=== PATIENT | female | born 1970 | race Caucasian/White ===

== ENCOUNTER 2017-01-08 12:08 | Inpatient (IN) | payer BC ==
[~2017-01-08] VITALS: Ht 162.6 cm; Wt 129.5 kg
[~2017-01-08 12:08] MED LIST: ASPI-664 PO; ATEN50TA PO; CARI350T29 PO; DOCU-144 PO; FER325 PO; GEMF600T PO; LORA-444 PO; OMEP20CA16 PO; SPIR25TA PO
[2017-01-08 14:23] VITALS: BP 102/55; PULSE 72; RESP 18
[2017-01-08 14:49] VITALS: Ht 162.6 cm; Wt 129.5 kg
[2017-01-08] MEDS ORDERED: ONDANSETRON 4 MG INJ IV STA (15:51)
[2017-01-08] MEDS: SOD CHLORIDE 0.9% 1,000 ML IV SCH ×3 (16:36→23:04)
[2017-01-08 18:03] VITALS: BP 111/45; PULSE 81
[2017-01-08] MEDS: morphine 2 MG INJ IV PRN ×2 (18:07→20:32)
--- NOTE | 2017-01-08 19:27 | HP ---
Date/Time of Note Date/Time of Note DATE: 01/08/17 TIME: 19:21 Assessment/Plan VTE Prophylaxis VTE Prophylaxis Intervention: SCD's Lines/Catheters IV Catheter Type (from [facility]): Saline Lock Assessment/Plan Chief Complaint/Hosp Course 46-year-old female presenting with abdominal pain for 3 days with prior history of fibroids and ovarian cyst 1. Abdominal pain: Likely secondary to patient's fibroids, possibly secondary to ovarian cyst -[facility], pain control medications, IV fluids, check TSH A1c lipid panel. Get OPTICS ENGINEER consult -We will also obtain new pelvic ultrasound to further determine source of patient's abdominal pain. 2. GI prophylaxis: PPI 3. DVT prophylaxis: SCDs Problems: HPI/ROS Admit Date/Time Admit Date/Time Jan 08, 2017 at 14:04 Hx of Present Illness 46 year female past medical history of fibroids and ovarian cyst who was transferred over from [facility] due to insurance purposes because of abdominal pain. She has been having this for the last 3 days. Patient denies any diarrhea or constipation, no fevers, no upper or lower GI bleeding, no headaches or dizziness loss of consciousness, no chest pain or shortness of breath. She is also been complaining of irregular periods over the last 5 months as well. She was last seen here in our hospital April 2016. At that time she had D and C procedure performed secondary to dysfunctional uterine bleeding and severe anemia at that time. PMH/Family/Social Past Surgical History Past Surgical Hx: other ( 4, gallbladder removal) Family History Significant Family History: other (Father: CHF) Social History Alcohol Use: none Smoking Status: Never smoker Drug Use: none Exam/Review of Systems Vital Signs Vitals Vital Signs Date Time Temp Pulse Resp B/P Pulse Ox O2 Delivery O2 Flow Rate FiO2 01/08/17 18:03 81 111/45 01/08/17 14:23 98.6 18 95 Room Air Exam Exam General: Lying in bed in mild distress complaining of abdominal pain Neck: Supple HEENT: Pupils equal round reactive to light extraocular muscles are intact Respiratory: Clear to auscultation bilaterally Cardiovascular: S1-S2 heard no rubs or gallops GI: Tenderness to palpation, otherwise soft, no rebound or guarding Muscular skeletal: No lower extremity edema bilaterally Neurologic: No focal deficits Medications Medications Current Medications Miscellaneous Information Patients own medicat... BID@,16 XX ; Start 01/08/17 at 16:00 Morphine Sulfate 1 mg 1 mg Q3H PRN IV pain Last administered on 01/08/17t 18:07 ; Admin Dose 1 MG; Start 01/08/17 at 16:00 Sodium Chloride (NS) 1,000 ml @ 125 mls/hr Q8H IV Last administered on 16:36; Admin Dose 125 MLS/HR; Start 01/08/17 at 16:00 Ondansetron HCl (Zofran Inj) 4 mg Q6H PRN IV NAUSEA AND/OR VOMITING; Start at 16:30 Ondansetron HCl (Zofran Inj) 4 mg Q6H PRN IV NAUSEA AND/OR VOMITING; Start at 19:30 Acetaminophen (Tylenol Tab) 650 mg Q6H PRN PO PAIN LEVEL 1-3 OR FEVER; Start at 19:30 Acetaminophen/ Hydrocodone Bitart ([place] (5/325)) 1 tab Q6H PRN PO MODERATE PAIN LEVEL 4-6; Start 01/08/17 at 19:30 Morphine Sulfate (morphine) 2 mg Q4H PRN IV SEVERE PAIN LEVEL 7-10; Start 01/08 at 19:30 Docusate Sodium (Colace) 100 mg Q12H PRN PO CONSTIPATION; Start 01/08/17 at 19: 30 Magnesium Hydroxide (Milk Of Mag) 30 ml DAILY PRN PO CONSTIPATION; Start at 19:30 Sodium Biphosphate/ Sodium Phosphate (Fleet Enema) 133 ml DAILY PRN [place] CONSTIPATION; Start 01/08/17 at 19:30 Pantoprazole 40 mg 40 mg DAILY@06 IV ; Start 01/09/17 at 06:00 Sodium Chloride (1/2 NS) 1,000 ml @ 75 mls/hr [id number] IV ; Start 01/08/17 at 19 :02 Lorazepam (Ativan) 0.5 mg Q6H PRN IV ANXIETY; Start 01/08/17 at 19:30 Hydralazine HCl (Apresoline) 10 mg Q6H PRN IV ELEVATED BLOOD PRESSURE; Start at 19:30 Nitroglycerin (Nitroglycerin (Sl Tab) 0.4 Mg) 1 tab Q5M PRN SL ANGINA; Start at 19:30 SARAH HAYNES Jan 08, 2017 19:26
[2017-01-08] MEDS ORDERED: DOCUSATE SODIUM 100 MG CAP PO PRN (19:30)
[2017-01-08] MEDS ORDERED: NA PHOSPHATE/BIPHOS 133 ML ENEMA PR PRN (19:30)
[2017-01-08] MEDS ORDERED: ALBUTEROL/IPRATROPIUM (NEB) 3 ML AMP HHN PRN (19:30)
[2017-01-08] MEDS ORDERED: hydrALAzine 20 MG INJ IV PRN (19:30)
[2017-01-08] MEDS ORDERED: MAGNESIUM HYDROXIDE 30ML CUP PO PRN (19:30)
[2017-01-08] MEDS ORDERED: ONDANSETRON 4 MG INJ IV PRN (19:30)
[2017-01-08] MEDS ORDERED: ACETAMINOPHEN 325 MG TAB PO PRN (19:30)
[2017-01-08] MEDS ORDERED: NITROGLYCERIN (SL) 0.4 MG TAB SL PRN (19:30)
[2017-01-08] MEDS ORDERED: NACL 0.9% 3 ML SYG IV SCH (19:30)
[2017-01-08 20:00] VITALS: BP 114/52; RESP 18
[2017-01-08] MEDS: SOD CHLORIDE 0.45% 1,000 ML IV SCH (20:26)
[2017-01-08] MEDS: ONDANSETRON 4 MG INJ IV PRN (20:33)
[2017-01-08 20:52] LABS: INR 1.06; PROTIME 13.8 Sec (12.2-14.2); PT RATIO 1.1
[2017-01-08 20:53] LABS: PARTIAL THROMBOPLASTIN TIME 28.6 Sec (25.0-35.0)
[2017-01-09] MEDS: morphine 2 MG INJ IV PRN ×6 (02:18→20:34)
[2017-01-09 02:54] VITALS: BP 100/55; RESP 18
[2017-01-09] MEDS: PANTOPRAZOLE 40 MG INJ IV SCH (04:49)
[2017-01-09 04:53] LABS: ADD SCAN DIFF NO
[2017-01-09 04:54] LABS: ABNORMAL IP MESSAGE 1; BASOPHILS % 0.3 % (0.0-2.0); EOSINOPHILS # 0.2 10^3/ul (0.0-0.5); EOSINOPHILS % 2.2 % (0.0-7.0); HEMATOCRIT 29.7 % (37.0-47.0); HEMOGLOBIN 8.4 g/dl (12.0-16.0); LYMPHOCYTES # 2.2 10^3/ul (0.8-2.9); LYMPHOCYTES % 24.6 % (15.0-51.0); MEAN CORPUSCULAR HEMOGLOBIN 20.2 pg (29.0-33.0); MEAN CORPUSCULAR HGB CONC 28.3 g/dl (32.0-37.0); MEAN CORPUSCULAR VOLUME 71.4 fl (82.0-101.0); MEAN PLATELET VOLUME 10.5 fl (7.4-10.4); MONOCYTE # 0.4 10^3/ul (0.3-0.9); MONOCYTES % 4.9 % (0.0-11.0); NEUTROPHIL # 6.1 10^3/ul (1.6-7.5); NEUTROPHILS % 67.3 % (39.0-77.0); PLATELET COUNT 290 10^3/UL (140-415); RED BLOOD COUNT 4.16 10^6/ul (4.20-5.40); RED CELL DISTRIBUTION WIDTH 18.4 % (11.5-14.5)
[2017-01-09 05:15] LABS: CALCIUM 8.6 mg/dl (8.4-10.2); CHOL/HDL RATIO 4.3 RATIO; CREATININE 0.79 mg/dl (0.44-1.00); MAGNESIUM 1.7 mg/dl (1.7-2.5); PHOSPHORUS 3.9 mg/dl (2.5-4.9); POTASSIUM 4.4 mmol/L (3.5-5.1)
[2017-01-09 05:45] LABS: THYROID STIMULATING HORMONE 1.38 MIU/L (0.465-4.680)
--- NOTE | 2017-01-09 07:11 | RADRPT ---
PROCEDURE: US Pelvis CLINICAL INDICATION: Pelvic pain. TECHNIQUE: Transabdominal sonographic evaluation of the pelvis was performed. COMPARISON: None. FINDINGS: Myometrium is homogeneous in echotexture without fibroids. Endometrium is normal in thickness without a focal abnormality. Normal flow to both ovaries. No adnexal mass. There is a dominant follicle within left ovary measu ring up to 1.4 cm. No free pelvic fluid. MEASUREMENTS: Uterus: 10.0 x 5.4 x 6.4 cm, anteverted. Endometrium: 0.7 cm. Right ovary size: 2.9 x 1.9 x 2.3 cm Left ovary size: 3.1 x 2.1 x 2.4 cm IMPRESSION: 1. Transabdominal views of the pelvis demonstrate no significant abnormality. RPTAT: EE .Davy Hsu MD, Date Time Electronically viewed and signed by .Davy Hsu MD, on 01/09/2017 07:15 .C/
[2017-01-09] MEDS: SOD CHLORIDE 0.45% 1,000 ML IV SCH ×3 (08:22→20:33)
[2017-01-09 08:39] VITALS: BP 114/56; RESP 18
[2017-01-09] MEDS: HYDROCODONE/APAP (5/325) TAB PO PRN ×3 (10:21→23:32)
--- NOTE | 2017-01-09 13:29 | PN ---
Date/Time of Note Date/Time of Note DATE: 01/09/17 TIME: 13:27 Assessment/Plan VTE Prophylaxis VTE Prophylaxis Intervention: SCD's Lines/Catheters IV C[facility]ter Type (from [facility]): Saline Lock Assessment/Plan Chief Complaint/Hosp Course 46-year-old female presenting with abdominal pain for 3 days with prior history of fibroids and ovarian cyst. 1. Abdominal pain: Likely secondary to patient's fibroids, possibly secondary to ovarian cyst. Interestingly, pelvic ultrasound performed last night does not demonstrate any fibroids. -Continue pain control medications, IV fluids. Follow-up [facility] [employer] consult recommendations. 2. GI prophylaxis: PPI 3. DVT prophylaxis: SCDs Problems: Subjective 24 Hr Interval Summary Free Text/Dictation Patient still complaining of pain symptoms in the abdomen. Awaiting to be seen by [facility] team. No acute events overnight otherwise. Exam/Review of Systems Vital Signs Vitals Vital Signs Date Time Temp Pulse Resp B/P Pulse Ox O2 Delivery O2 Flow Rate FiO2 01/09/17 08:39 98.2 76 18 114/56 96 01/08/17 14:23 Room Air Intake and Output 01/08/17 01/08/17 01/09/17 15:00 23:00 07:00 Intake Total 375 ml 750 ml Output Total 900 ml Balance 375 ml -150 ml Exam General: Lying in bed in mild distress complaining of abdominal pain Neck: Supple HEENT: Pupils equal round reactive to light extraocular muscles are intact Respiratory: Clear to auscultation bilaterally Cardiovascular: S1-S2 heard no rubs or gallops GI: Tenderness to palpation, otherwise soft, no rebound or guarding Muscular skeletal: No lower extremity edema bilaterally Neurologic: No focal deficits Results Result Diagram: 01/09/17 0430 01/09/17 0430 Results 24 hrs Laboratory Tests Test 01/08/17 19:15 01/08/17 20:15 01/09/17 04:30 Free Thyroxine 0.85 Prothrombin Time 13.8 Prothrombin Time Ratio 1.1 INR International Normalized Ratio 1.06 Activated Partial Thromboplast Time 28.6 White Blood Count 9.0 # Red Blood Count 4.16 L Hemoglobin 8.4 L Hematocrit 29.7 L Mean Corpuscular Volume 71.4 L Mean Corpuscular Hemoglobin 20.2 L Mean Corpuscular Hemoglobin Concent 28.3 L Red Cell Distribution Width 18.4 H Platelet Count 290 Mean Platelet Volume 10.5 #H Neutrophils % 67.3 Lymphocytes % 24.6 Monocytes % 4.9 Eosinophils % 2.2 Basophils % 0.3 Nucleated Red Blood Cells % 0.0 Neutrophils # 6.1 Lymphocytes # 2.2 Monocytes # 0.4 Eosinophils # 0.2 Basophils # 0.0 Nucleated Red Blood Cells # 0.0 Sodium Level 143 Potassium Level 4.4 Chloride Level 104 Carbon Dioxide Level 29 Anion Gap 14 Blood Urea Nitrogen 10 Creatinine 0.79 Glucose Level 99 Hemoglobin A1c 5.7 Calcium Level 8.6 Phosphorus Level 3.9 Magnesium Level 1.7 Triglycerides Level 186 H Cholesterol Level 166 LDL Cholesterol, Calculated 91 HDL Cholesterol 38 Cholesterol/HDL Ratio 4.3 Thyroid Stimulating Hormone (TSH) 1.380 Medications Medications Current Medications Miscellaneous Information Patients own medicat... BID@ XX ; Start 01/08/17 at 16:00 Morphine Sulfate 1 mg 1 mg Q3H PRN IV pain Last administered on 01/09/17 04:49 ; Admin Dose 1 MG; Start 01/08/17 at 16:00 Sodium Chloride (NS) 1,000 ml @ 125 mls/hr Q8H IV Last administered on 16:36; Admin Dose 125 MLS/HR; Start 01/08/17 at 16:00 Ondansetron HCl (Zofran Inj) 4 mg Q6H PRN IV NAUSEA AND/OR VOMITING Last administered on 01/08/17 20:33; Admin Dose 4 MG; Start 01/08/17 at 16:30 Ondansetron HCl (Zofran Inj) 4 mg Q6H PRN IV NAUSEA AND/OR VOMITING; Start at 19:30 Acetaminophen (Tylenol Tab) 650 mg Q6H PRN PO PAIN LEVEL 1-3 OR FEVER; Start at 19:30 Acetaminophen/ Hydrocodone Bitart ([place] (5/325)) 1 tab Q6H PRN PO MODERATE PAIN LEVEL 4-6 Last administered on 01/09/17 10:21; Admin Dose 1 TAB; Start at 19:30 Docusate Sodium (Colace) 100 mg Q12H PRN PO CONSTIPATION; Start 01/08/17 at 19: 30 Magnesium Hydroxide (Milk Of Mag) 30 ml DAILY PRN PO CONSTIPATION; Start at 19:30 Sodium Biphosphate/ Sodium Phosphate (Fleet Enema) 133 ml DAILY PRN [place] CONSTIPATION; Start 01/08/17 at 19:30 Pantoprazole 40 mg 40 mg DAILY@06 IV Last administered on 01/09/17 04:49; Admin Dose 40 MG; Start 01/09/17 at 06:00 Sodium Chloride (1/2 NS) 1,000 ml @ 75 mls/hr [id number] IV Last administered on 01/08/17 20:26; Admin Dose 75 MLS/HR; Start 01/08/17 at 19:02 Lorazepam (Ativan) 0.5 mg Q6H PRN IV ANXIETY; Start 01/08/17 at 19:30 Hydralazine HCl (Apresoline) 10 mg Q6H PRN IV ELEVATED BLOOD PRESSURE; Start at 19:30 Nitroglycerin (Nitroglycerin (Sl Tab) 0.4 Mg) 1 tab Q5M PRN SL ANGINA; Start at 19:30 Morphine Sulfate (morphine) 3 mg Q4H PRN IV SEVERE PAIN LEVEL 7-10; Start 01/09 at 15:30 SARAH HAYNES Jan 09, 2017 13:29
[2017-01-09 14:13] VITALS: BP 96/46; RESP 18
[2017-01-09] MEDS: SOD CHLORIDE 0.9% 1,000 ML IV SCH (16:06)
[2017-01-09 20:04] VITALS: BP 116/71; RESP 18
--- NOTE | 2017-01-09 22:41 | CONS ---
Date/Time of Note Date/Time of Note DATE: 01/09/17 TIME: 22:29 Assessment/Plan Assessment/Plan Chief Complaint/Hosp Course Chronic pelvic pain, unclear etiology. Cannot rule out other non-MANAGER CENTER causes for pelvic pain including GI , versus scars related to prior multiple C- sections. No clear evidence of fibroid in exam or ultrasound or CT scan Chronic menometrorrhagia Chronic iron deficiency anemia secondary to menometrorrhagia, with multiple blood transfusion as well as iron infusion She is a status post endometrial biopsy 7 months ago that was benign Patient currently is asymptomatic Has no vaginal bleeding at present time Recommended evaluation for non-MANAGER CENTER causes of pelvic pain. Including GI Management of menometrorrhagia including nonhormonal vs progesterone only medications ( due to obesity, not a good candidate for E+ P ). including Depo provera, Aygestin, POP discussed as well as surgical options including Hysteroscopy and Ablation vs Hysterectomy with pros and cons of each method in detail. Patient desires and requests to proceed with definitive surgical management with hysterectomy. Had in the past tried to be referred to Dr. Camilo cobian by Dr. Devon dennis for hysterectomy but could not get to see him She is hoping to see him during this admission for surgical management plan. Recommended to contact Dr. Sanchez for a consult Mean time, Patient can take Aygestio for menometrorrhagia vs Depo provera . May be able to prescribe this if available in the pharmacy. Pain management by primary team and recommended to continue explore and r/o other factors for chronic plevic pain. will continue to follow up Problems: Consultation Date/Type/Reason Admit Date/Time Jan 08, 2017 at 14:04 Date of Consultation: Jan 09, 2017 Type of Consultation: [facility] Reason for Consultation Gynecology evaluation for chronic menometrorrhagia and anemia as well as chronic pelvic pain Hx of Present Illness 46-year-old with history of chronic iron deficiency severe anemia, status post multiple episodes of blood transfusion as well as IV iron infusion. She had never been treated for menorrhagia. She also had a history of chronic pelvic pain and severe dysmenorrhea. Patient reports that her pelvic pain usually occurs 1 week prior to menstruation as well as at the time of menstruation and continued until 1 week after menstruation. Per patient pain gradually increased. Reports normally she had pain 4 out of 10 at the time of menstruation however 2 days ago started having increased abdominal pain. She rates her pain 7 out of 10. Pain is in the lower abdomen and constant. Patient presented to [facility] where she had been evaluated and subsequently was transferred to [facility] due to insurance issue. Patient had a CT of abdomen and pelvis as well as pelvic ultrasound that showed heterogeneous uterus without evidence of fibroids or adnexal mass. Patient reports that only morphine helps with her pain. She was initially a patient of Dr. Baker. She underwent D&C in April 2016 for menometrorrhagia and severe anemia that showed proliferative endometrium with benign findings. She never received any treatment for chronic menometrorrhagia. Denies any history of bleeding problem. Denies any family history of bleeding problem. Reports her period since menarche had been heavy but significantly heavier since her first childbirth. Denies any known history of thyroid problem. Has been tested negative for thyroid dysfunction. Currently has bleeding every other week for the last 2 months. Strongly desires to proceed with definitive surgical management with hysterectomy and requests. Subjective hx not possible: other Constitutional: improved Eyes: no complaints ENT: no complaints Respiratory: no complaints Cardiovascular: no complaints Gastrointestinal: pain Genitourinary: bleeding, other (Pain, dysmenorrhea, menometrorrhagia, pelvic pain) Musculoskeletal: no complaints Skin: no complaints Neurologic: no complaints Endocrine: no complaints Lymphatic: no complaints Psychological: anxiety (History of bipolar disorder), depression, other Past Medical History Past medical history: Anxiety and depression History of bipolar disorder History of hypertension Morbid obesity High cholesterol Anemia Past Surgical History Laparoscopic cholecystectomy D&C, April 2016 for menometrorrhagia 4 Past Surgical Hx: other ( 4, gallbladder removal) Family History Significant Family History: other (Father with congestive heart failure and COPD) Social History Alcohol Use: none Smoking Status: Never smoker Drug Use: none Exam/Review of Systems Vital Signs Vitals Vital Signs Date Time Temp Pulse Resp B/P Pulse Ox O2 Delivery O2 Flow Rate FiO2 01/09/17 20:04 98.5 84 18 116/71 95 01/08/17 14:23 Room Air Intake and Output 01/08/17 01/08/17 01/09/17 15:00 23:00 07:00 Intake Total 375 ml 750 ml Output Total 900 ml Balance 375 ml -150 ml Exam Constitutional: alert, distress, obese, oriented, other (Patient appears to be in moderate distress due to pain), well developed Psych: anxiety, nl mood/affect Head: atraumatic, normocephalic Eyes: EOMI, nl conjunctiva, nl lids Neck: supple Respiratory: clear to auscultation, normal air movement Cardiovascular: nl pulses, regular rate and rhythm Gastrointestinal: soft, tender (Moderate tenderness in both lower abdomen. Abdomen soft generally. No rebound tenderness, no guarding, no rigidity no evidence of acute abdomen) Genitourinary - Female: other (Sterile speculum examination: Vagina normal. No blood in the vault. Cervix high in the vagina. Difficult to visualize due to patient's body habitus and high position of the cervix. No abnormal vaginal discharge noted. Bimanual examination. Cervix smooth without any lesion. No cervical motion tenderness. Uterus normal size. There is moderate tenderness in both lower abdomen noted. Exam is very limited due to patient's large body habitus and difficult examination due to patient's tenderness and difficult to tolerate the exam.) Extremities: normal pulses Neurological: SUPPLY ANALYST II-XII intact, nl mental status, nl speech Skin: nl turgor Results Result Diagram: 01/09/1742901/09/17 0430 Results 24 hrs Laboratory Tests Test 01/09/17 04:30 White Blood Count 9.0 # Red Blood Count 4.16 L Hemoglobin 8.4 L Hematocrit 29.7 L Mean Corpuscular Volume 71.4 L Mean Corpuscular Hemoglobin 20.2 L Mean Corpuscular Hemoglobin Concent 28.3 L Red Cell Distribution Width 18.4 H Platelet Count 290 Mean Platelet Volume 10.5 #H Neutrophils % 67.3 Lymphocytes % 24.6 Monocytes % 4.9 Eosinophils % 2.2 Basophils % 0.3 Nucleated Red Blood Cells % 0.0 Neutrophils # 6.1 Lymphocytes # 2.2 Monocytes # 0.4 Eosinophils # 0.2 Basophils # 0.0 Nucleated Red Blood Cells # 0.0 Sodium Level 143 Potassium Level 4.4 Chloride Level 104 Carbon Dioxide Level 29 Anion Gap 14 Blood Urea Nitrogen 10 Creatinine 0.79 Glucose Level 99 Hemoglobin A1c 5.7 Calcium Level 8.6 Phosphorus Level 3.9 Magnesium Level 1.7 Triglycerides Level 186 H Cholesterol Level 166 LDL Cholesterol, Calculated 91 HDL Cholesterol 38 Cholesterol/HDL Ratio 4.3 Thyroid Stimulating Hormone (TSH) 1.380 Medications Medications Current Medications Miscellaneous Information Patients own medicat... BID@ XX ; Start 01/08/17 at 16:00 Morphine Sulfate (morphine) 1 mg Q3H PRN IV pain Last administered on 04:49; Admin Dose 1 MG; Start 01/08/17 at 16:00 Ondansetron HCl (Zofran Inj) 4 mg Q6H PRN IV NAUSEA AND/OR VOMITING Last administered on 01/08/17 20:33; Admin Dose 4 MG; Start 01/08/17 at 16:30 Ondansetron HCl (Zofran Inj) 4 mg Q6H PRN IV NAUSEA AND/OR VOMITING; Start at 19:30 Acetaminophen (Tylenol Tab) 650 mg Q6H PRN PO PAIN LEVEL 1-3 OR FEVER; Start at 19:30 Acetaminophen/ Hydrocodone Bitart ([place] (5/325)) 1 tab Q6H PRN PO MODERATE PAIN LEVEL 4-6 Last administered on 01/09/17 17:20; Admin Dose 1 TAB; Start at 19:30 Docusate Sodium (Colace) 100 mg Q12H PRN PO CONSTIPATION; Start 01/08/17 at 19: 30 Magnesium Hydroxide (Milk Of Mag) 30 ml DAILY PRN PO CONSTIPATION; Start at 19:30 Sodium Biphosphate/ Sodium Phosphate (Fleet Enema) 133 ml DAILY PRN [place] CONSTIPATION; Start 01/08/17 at 19:30 Pantoprazole 40 mg 40 mg DAILY@06 IV Last administered on 01/09/17 04:49; Admin Dose 40 MG; Start 01/09/17 at 06:00 Sodium Chloride (1/2 NS) 1,000 ml @ 75 mls/hr [id number] IV Last administered on 01/09/17 17:20; Admin Dose 75 MLS/HR; Start 01/08/17 at 19:02 Lorazepam (Ativan) 0.5 mg Q6H PRN IV ANXIETY; Start 01/08/17 at 19:30 Hydralazine HCl (Apresoline) 10 mg Q6H PRN IV ELEVATED BLOOD PRESSURE; Start at 19:30 Nitroglycerin (Nitroglycerin (Sl Tab) 0.4 Mg) 1 tab Q5M PRN SL ANGINA; Start at 19:30 Morphine Sulfate (morphine) 3 mg Q4H PRN IV SEVERE PAIN LEVEL 7-10 Last administered on 01/09/17t 20:34; Admin Dose 3 MG; Start 01/09/17 at 15:30 Procedures Procedures Hematology - 72 Hrs Test 01/09/17 04:30 White Blood Count 9.010^3/ul (4.8-10.8) # Red Blood Count 4.1610^6/ul (4.20-5.40) L Hemoglobin 8.4g/dl (12.0-16.0) L Hematocrit 29.7% (37.0-47.0) L Mean Corpuscular Volume 71.4fl (82.0-101.0) L Mean Corpuscular Hemoglobin 20.2pg (29.0-33.0) L Mean Corpuscular Hemoglobin Concent 28.3g/dl (32.0-37.0) L Red Cell Distribution Width 18.4% (11.5-14.5) H Platelet Count 90198^3/UL (140-415) Mean Platelet Volume 10.5fl (7.4-10.4) #H Neutrophils % 67.3% (39.0-77.0) Lymphocytes % 24.6% (15.0-51.0) Monocytes % 4.9% (0.0-11.0) Eosinophils % 2.2% (0.0-7.0) Basophils % 0.3% (0.0-2.0) Nucleated Red Blood Cells % 0.0/100WBC (0.0-0.0) Neutrophils # 6.110^3/ul (1.6-7.5) Lymphocytes # 2.210^3/ul (0.8-2.9) Monocytes # 0.410^3/ul (0.3-0.9) Eosinophils # 0.210^3/ul (0.0-0.5) Basophils # 0.010^3/ul (0.0-0.1) Nucleated Red Blood Cells # 0.010^3/ul (0.0-0.0) Chemistry Test 01/08/17 19:15 01/09/17 04:30 Free Thyroxine 0.85ng/dl (0.64-1.79) Sodium Level 143mmol/L (135-144) Potassium Level 4.4mmol/L (3.5-5.1) Chloride Level 104mmol/L (97-110) Carbon Dioxide Level 29mmol/L (21-31) Anion Gap 14 (8-16) Blood Urea Nitrogen 10mg/dl (7-20) Creatinine 0.79mg/dl (0.44-1.00) Glucose Level 99mg/dl (70-220) Hemoglobin A1c 5.7% (0-5.9) Calcium Level 8.6mg/dl (8.4-10.2) Phosphorus Level 3.9mg/dl (2.5-4.9) Magnesium Level 1.7mg/dl (1.7-2.5) Triglycerides Level 186mg/dl (0-149) H Cholesterol Level 166mg/dl (100-200) LDL Cholesterol, Calculated 91mg/dl HDL Cholesterol 38mg/dl (34-88) Cholesterol/HDL Ratio 4.3RATIO Thyroid Stimulating Hormone (TSH) 1.380MIU/L (0.465-4.680) PROCEDURE: US Pelvis CLINICAL INDICATION: Pelvic pain. TECHNIQUE: Transabdominal sonographic evaluation of the pelvis was performed. COMPARISON: None. FINDINGS: Myometrium is homogeneous in echotexture without fibroids. Endometrium is normal in thickness without a focal abnormality. Normal flow to both ovaries. No adnexal mass. There is a dominant follicle within left ovary measuring up to 1.4 cm. No free pelvic fluid. MEASUREMENTS: Uterus: 10.0 x 5.4 x 6.4 cm, anteverted. Endometrium: 0.7 cm. Right ovary size: 2.9 x 1.9 x 2.3 cm Left ovary size: 3.1 x 2.1 x 2.4 cm IMPRESSION: 1. Transabdominal views of the pelvis demonstrate no significant abnormality. SAMIRA CRAWFORD MD Jan 09, 2017 22:40
[2017-01-09] MEDS: LORAZEPAM 2 MG INJ IV PRN (22:48)
[2017-01-10 02:06] VITALS: BP 118/59; RESP 18
[2017-01-10] MEDS: morphine 2 MG INJ IV PRN ×5 (02:27→21:51)
[2017-01-10] MEDS: HYDROCODONE/APAP (5/325) TAB PO PRN ×2 (05:32→14:30)
[2017-01-10] MEDS: PANTOPRAZOLE 40 MG INJ IV SCH (05:32)
[2017-01-10] MEDS: SOD CHLORIDE 0.45% 1,000 ML IV SCH ×2 (05:34→18:55)
[2017-01-10 06:26] LABS: ADD SCAN DIFF NO
[2017-01-10 06:38] LABS: ABNORMAL IP MESSAGE 1; BASOPHILS % 0.3 % (0.0-2.0); EOSINOPHILS # 0.1 10^3/ul (0.0-0.5); EOSINOPHILS % 1.6 % (0.0-7.0); HEMATOCRIT 27.7 % (37.0-47.0); HEMOGLOBIN 7.8 g/dl (12.0-16.0); LYMPHOCYTES # 1.9 10^3/ul (0.8-2.9); LYMPHOCYTES % 24.1 % (15.0-51.0); MEAN CORPUSCULAR HEMOGLOBIN 19.9 pg (29.0-33.0); MEAN CORPUSCULAR HGB CONC 28.2 g/dl (32.0-37.0); MEAN CORPUSCULAR VOLUME 70.7 fl (82.0-101.0); MEAN PLATELET VOLUME 10.4 fl (7.4-10.4); MONOCYTE # 0.7 10^3/ul (0.3-0.9); NEUTROPHIL # 5.1 10^3/ul (1.6-7.5); NEUTROPHILS % 64.5 % (39.0-77.0); PLATELET COUNT 267 10^3/UL (140-415); RED BLOOD COUNT 3.92 10^6/ul (4.20-5.40); RED CELL DISTRIBUTION WIDTH 18.3 % (11.5-14.5); WHITE BLOOD COUNT 7.9 10^3/ul (4.8-10.8)
[2017-01-10 07:04] LABS: CALCIUM 8.8 mg/dl (8.4-10.2); CREATININE 0.81 mg/dl (0.44-1.00); POTASSIUM 4.2 mmol/L (3.5-5.1)
[2017-01-10 08:19] VITALS: BP 94/50; RESP 18
[2017-01-10 14:00] VITALS: BP 96/46; RESP 18
--- NOTE | 2017-01-10 14:48 | PN ---
Date/Time of Note Date/Time of Note DATE: 01/10/17 TIME: 14:43 Assessment/Plan VTE Prophylaxis VTE Prophylaxis Intervention: SCD's Lines/Catheters IV [facility] Type (from [facility] Peripheral IV Urinary Cath still in place: No Assessment/Plan Chief Complaint/Hosp Course 46-year-old female presenting with abdominal pain for 3 days with prior history of fibroids and ovarian cyst. 1. Abdominal pain: Likely secondary to patient's fibroids vs GI abnormality, also possibly secondary to ovarian cyst. Interestingly, pelvic ultrasound performed 2 days ago does not demonstrate any fibroids. Appreciate DEALER CARD ROOM consult. Patient has chronic menometrorrhagia, and chronic iron deficiency anemia secondary to menometrorrhagia, with multiple blood transfusion as well as iron infusion, and is status post endometrial biopsy 7 months ago that was benign. -Continue pain control medications, IV fluids. Follow-up DEALER [employer] ROOM consult recommendations. -per DEALER [facility]ARD ROOM, will also consult gynecological oncology team and GI team for further evaluation -Given low hemoglobin today, will transfuse 2 units PRBC as well, and check occult test 2. GI prophylaxis: PPI 3. DVT prophylaxis: SCDs Problems: Subjective 24 Hr Interval Summary Free Text/Dictation Patient still complaining of some pelvic pain and slight bleeding. Had pelvic ultrasound performed. Seen by DEALER CARD RO[facility] team. Exam/Review of Systems Vital Signs Vitals Vital Signs Date Time Temp Pulse Resp B/P Pulse Ox O2 Delivery O2 Flow Rate FiO2 01/10/17 08:19 98.3 80 18 94/50 93 01/08/17 14:23 Room Air Intake and Output 01/09/17 01/09/17 01/10/17 15:00 23:00 07:00 Intake Total 250 ml 1500 ml Output Total 550 ml Balance -300 ml 1500 ml Exam General: Lying in bed in mild distress, but alert Neck: Supple HEENT: Pupils equal round reactive to light extraocular muscles are intact Respiratory: Clear to auscultation bilaterally Cardiovascular: S1-S2 heard no rubs or gallops GI: Tenderness to palpation, otherwise soft, no rebound or guarding Muscular skeletal: No lower extremity edema bilaterally Neurologic: No focal deficits Results Result Diagram: 01/10/17 0552 01/10/17 0552 Results 24 hrs Laboratory Tests Test 01/10/17 05:52 White Blood Count 7.9 Red Blood Count 3.92 L Hemoglobin 7.8 L Hematocrit 27.7 L Mean Corpuscular Volume 70.7 L Mean Corpuscular Hemoglobin 19.9 L Mean Corpuscular Hemoglobin Concent 28.2 L Red Cell Distribution Width 18.3 H Platelet Count 267 Mean Platelet Volume 10.4 Neutrophils % 64.5 Lymphocytes % 24.1 Monocytes % 9.0 Eosinophils % 1.6 Basophils % 0.3 Nucleated Red Blood Cells % 0.0 Neutrophils # 5.1 Lymphocytes # 1.9 Monocytes # 0.7 Eosinophils # 0.1 Basophils # 0.0 Nucleated Red Blood Cells # 0.0 Sodium Level 144 Potassium Level 4.2 Chloride Level 101 Carbon Dioxide Level 31 Anion Gap 16 Blood Urea Nitrogen 9 Creatinine 0.81 Glucose Level 97 Calcium Level 8.8 Medications Medications Current Medications Miscellaneous Information Patients own medicat... BID@ XX ; Start 01/08/17 at 16:00 Morphine Sulfate (morphine) 1 mg Q3H PRN IV pain Last administered on 04:49; Admin Dose 1 MG; Start 01/08/17 at 16:00 Ondansetron HCl (Zofran Inj) 4 mg Q6H PRN IV NAUSEA AND/OR VOMITING Last administered on 01/08/17 20:33; Admin Dose 4 MG; Start 01/08/17 at 16:30 Ondansetron HCl (Zofran Inj) 4 mg Q6H PRN IV NAUSEA AND/OR VOMITING; Start at 19:30 Acetaminophen (Tylenol Tab) 650 mg Q6H PRN PO PAIN LEVEL 1-3 OR FEVER; Start at 19:30 Acetaminophen/ Hydrocodone Bitart ([place] (5/325)) 1 tab Q6H PRN PO MODERATE PAIN LEVEL 4-6 Last administered on 01/10/17 14:30; Admin Dose 1 TAB; Start at 19:30 Docusate Sodium (Colace) 100 mg Q12H PRN PO CONSTIPATION; Start 01/08/17 at 19: 30 Magnesium Hydroxide (Milk Of Mag) 30 ml DAILY PRN PO CONSTIPATION; Start at 19:30 Sodium Biphosphate/ Sodium Phosphate (Fleet Enema) 133 ml DAILY PRN [place] CONSTIPATION; Start 01/08/17 at 19:30 Pantoprazole 40 mg 40 mg DAILY@06 IV Last administered on 01/10/17 05:32; Admin Dose 40 MG; Start 01/09/17 at 06:00 Sodium Chloride (1/2 NS) 1,000 ml @ 75 mls/hr [id number] IV Last administered on 01/10/17 05:34; Admin Dose 75 MLS/HR; Start 01/08/17 at 19:02 Lorazepam (Ativan) 0.5 mg Q6H PRN IV ANXIETY Last administered on 01/09/17 22: 48; Admin Dose 0.5 MG; Start 01/08/17 at 19:30 Hydralazine HCl (Apresoline) 10 mg Q6H PRN IV ELEVATED BLOOD PRESSURE; Start at 19:30 Nitroglycerin (Nitroglycerin (Sl Tab) 0.4 Mg) 1 tab Q5M PRN SL ANGINA; Start at 19:30 Morphine Sulfate (morphine) 3 mg Q4H PRN IV SEVERE PAIN LEVEL 7-10 Last administered on 01/10/17 11:03; Admin Dose 3 MG; Start 01/09/17 at 15:30 SARAH HAYNES Jan 10, 2017 14:48
--- NOTE | 2017-01-10 15:22 | CONS ---
Date/Time of Note Date/Time of Note DATE: 01/10/17 TIME: 15:08 Assessment/Plan Assessment/Plan Additional Assessment/Plan Assessment * Abdominal pain T/C fibroids * Anemia R/O Bleeding peptic ulcer vs iron deficiency vs others Plan * EGD tomorrow risks and benefit explain to patient and agreed with the plan procedure * continue present management * pain control Consultation Date/Type/Reason Admit Date/Time Jan 08, 2017 at 14:04 Date of Consultation: Jan 10, 2017 Type of Consultation: GAstroenterology Reason for Consultation Abdominal pain/anemia Referring Provider: SARAH HAYNES Hx of Present Illness 46 year old female with past medical history of fibroids,anemia with multiple transfusion presented in [facility] complaining of abdominal pain diffuse 2 day duration.,ultrasound revealed small fibroid,1.2 cm left ovarian follicle,hemoglobin was 9.Due to insurance reasons ,patient was transferred to our facility.On evaluation .patient complains on and off abdominal pain,non radiating,denies any hematemesis,nausea,vomiting nor hematochezia.Transabdominal ultrasound revealed Transabdominal views of the pelvis demonstrate no significant abnormality. Latest hemoglobin 7.8. Constitutional: improved Eyes: no complaints ENT: no complaints Respiratory: no complaints Cardiovascular: no complaints Gastrointestinal: pain Genitourinary: bleeding, other (Pain, dysmenorrhea, menometrorrhagia, pelvic pain) Musculoskeletal: no complaints Skin: no complaints Neurologic: no complaints Endocrine: no complaints Lymphatic: no complaints Psychological: anxiety, nl mood/affect Immunologic: no complaints Past Medical History Medical History: other (fibroids) Past Surgical History Past Surgical Hx: other ( 4, gallbladder removal) Family History Significant Family History: no pertinent family hx Social History Alcohol Use: none Smoking Status: Never smoker Drug Use: none Exam/Review of Systems Vital Signs Vitals Vital Signs Date Time Temp Pulse Resp B/P Pulse Ox O2 Delivery O2 Flow Rate FiO2 01/10/17 14:00 98.1 92 18 96/46 96 01/08/17 14:23 Room Air Intake and Output 01/09/17 01/09/17 01/10/17 15:00 23:00 07:00 Intake Total 250 ml 1500 ml Output Total 550 ml Balance -300 ml 1500 ml Exam Constitutional: alert, oriented, well developed Psych: nl mood/affect, no complaints Head: atraumatic, normocephalic Eyes: EOMI, PERRL, nl conjunctiva, nl lids, nl sclera ENMT: nl external ears & nose, nl lips & teeth, nl nasal mucosa & septum Neck: non-tender, supple Respiratory: clear to auscultation, normal air movement Cardiovascular: nl pulses, regular rate and rhythm Gastrointestinal: nl liver, spleen, non-tender, soft Musculoskeletal: nl extremities to inspection, nl gait and stance Extremities: normal pulses Neurological: CAR KNOCKER II-XII intact, nl mental status, nl speech, nl strength Skin: nl turgor, No rash or lesions Lymph: nl lymph nodes Results Result Diagram: 01/10/17 0552 01/10/17 0552 Results 24 hrs Laboratory Tests Test 01/10/17 05:52 White Blood Count 7.9 Red Blood Count 3.92 L Hemoglobin 7.8 L Hematocrit 27.7 L Mean Corpuscular Volume 70.7 L Mean Corpuscular Hemoglobin 19.9 L Mean Corpuscular Hemoglobin Concent 28.2 L Red Cell Distribution Width 18.3 H Platelet Count 267 Mean Platelet Volume 10.4 Neutrophils % 64.5 Lymphocytes % 24.1 Monocytes % 9.0 Eosinophils % 1.6 Basophils % 0.3 Nucleated Red Blood Cells % 0.0 Neutrophils # 5.1 Lymphocytes # 1.9 Monocytes # 0.7 Eosinophils # 0.1 Basophils # 0.0 Nucleated Red Blood Cells # 0.0 Sodium Level 144 Potassium Level 4.2 Chloride Level 101 Carbon Dioxide Level 31 Anion Gap 16 Blood Urea Nitrogen 9 Creatinine 0.81 Glucose Level 97 Calcium Level 8.8 Medications Medications Current Medications Miscellaneous Information Patients own medicat... BID@ XX ; Start 01/08/17 at 16:00 Morphine Sulfate (morphine) 1 mg Q3H PRN IV pain Last administered on 04:49; Admin Dose 1 MG; Start 01/08/17 at 16:00 Ondansetron HCl (Zofran Inj) 4 mg Q6H PRN IV NAUSEA AND/OR VOMITING Last administered on 01/08/17 20:33; Admin Dose 4 MG; Start 01/08/17 at 16:30 Ondansetron HCl (Zofran Inj) 4 mg Q6H PRN IV NAUSEA AND/OR VOMITING; Start at 19:30 Acetaminophen (Tylenol Tab) 650 mg Q6H PRN PO PAIN LEVEL 1-3 OR FEVER; Start at 19:30 Acetaminophen/ Hydrocodone Bitart ([place] (5/325)) 1 tab Q6H PRN PO MODERATE PAIN LEVEL 4-6 Last administered on 01/10/17 14:30; Admin Dose 1 TAB; Start at 19:30 Docusate Sodium (Colace) 100 mg Q12H PRN PO CONSTIPATION; Start 01/08/17 at 19: 30 Magnesium Hydroxide (Milk Of Mag) 30 ml DAILY PRN PO CONSTIPATION; Start at 19:30 Sodium Biphosphate/ Sodium Phosphate (Fleet Enema) 133 ml DAILY PRN [place] CONSTIPATION; Start 01/08/17 at 19:30 Pantoprazole 40 mg 40 mg DAILY@06 IV Last administered on 01/10/17 05:32; Admin Dose 40 MG; Start 01/09/17 at 06:00 Sodium Chloride (1/2 NS) 1,000 ml @ 75 mls/hr [id number] IV Last administered on 01/10/17 05:34; Admin Dose 75 MLS/HR; Start 01/08/17 at 19:02 Lorazepam (Ativan) 0.5 mg Q6H PRN IV ANXIETY Last administered on 01/09/17 22: 48; Admin Dose 0.5 MG; Start 01/08/17 at 19:30 Hydralazine HCl (Apresoline) 10 mg Q6H PRN IV ELEVATED BLOOD PRESSURE; Start at 19:30 Nitroglycerin (Nitroglycerin (Sl Tab) 0.4 Mg) 1 tab Q5M PRN SL ANGINA; Start at 19:30 Morphine Sulfate (morphine) 3 mg Q4H PRN IV SEVERE PAIN LEVEL 7-10 Last administered on 01/10/17 11:03; Admin Dose 3 MG; Start 01/09/17 at 15:30 OLVIN STEVENS MD Jan 10, 2017 15:21
--- NOTE | 2017-01-10 18:46 | CONS ---
Date/Time of Note Date/Time of Note DATE: 01/10/17 TIME: 18:35 Consultation Date/Type/Reason Admit Date/Time January 10, 2017 Hospital consult Reason for Consultation This patient is a 46 years old 5 para 4 who had multiple admission in the hospital and was transferred from another hospital due to her insurance condition. Reason for patient is a vaginal bleeding chronic anemia menometrorrhagia multiple blood transfusions In reviewing her past medical history she had 4 section and laparoscopic cystectomy as well as recent D&C She has history of bipolar depression, as I mentioned anemia and menometrorrhagia with multiple blood transfusions She had a CAT scan of ultrasound study tat did not show any fibroid as such no fluid collection in the pelvis Laboratory Tests Test 01/10/17 05:52 White Blood Count 7.910^3/ul Red Blood Count 3.9210^6/ul Hemoglobin 7.8g/dl Hematocrit 27.7% Mean Corpuscular Volume 70.7fl Mean Corpuscular Hemoglobin 19.9pg Mean Corpuscular Hemoglobin Concent 28.2g/dl Red Cell Distribution Width 18.3% Platelet Count 03981^3/UL Mean Platelet Volume 10.4fl Neutrophils % 64.5% Lymphocytes % 24.1% Monocytes % 9.0% Eosinophils % 1.6% Basophils % 0.3% Nucleated Red Blood Cells % 0.0/100WBC Neutrophils # 5.110^3/ul Lymphocytes # 1.910^3/ul Monocytes # 0.710^3/ul Eosinophils # 0.110^3/ul Basophils # 0.010^3/ul Nucleated Red Blood Cells # 0.010^3/ul Sodium Level 144mmol/L Potassium Level 4.2mmol/L Chloride Level 101mmol/L Carbon Dioxide Level 31mmol/L Anion Gap 16 Blood Urea Nitrogen 9mg/dl Creatinine 0.81mg/dl Glucose Level 97mg/dl Calcium Level 8.8mg/dl Current Medications Medications (Trade) Dose Ordered Sig/Breanne Route PRN Reason Start Time Stop Time Status Last Admin Dose Admin Miscellaneous Information Patients own medicat... BID@10,16 XX 01/08/17 16:00 Morphine Sulfate (morphine) 1 mg Q3H PRN IV pain 01/08/17 16:00 01/09/17 04:49 1 MG Ondansetron HCl 2 mg 2 mg Q6 STAT IV 01/08/17 15:51 01/08/17 16:03 DC Sodium Chloride (NS) 1,000 ml @ 125 mls/hr Q8H IV 01/08/17 16:00 01/09/17 16:06 DC 01/08/17 16:36 125 MLS/HR Ondansetron HCl (Zofran Inj) 4 mg Q6H PRN IV NAUSEA AND/OR VOMITING 01/08/17 16:30 01/08/17 20:33 4 MG IV Flush (NS 3 ml) 3 ml PER PROTOCOL IV 01/08/17 19:30 Ondansetron HCl (Zofran Inj) 4 mg Q6H PRN IV NAUSEA AND/OR VOMITING 01/08/17 19:30 Acetaminophen (Tylenol Tab) 650 mg Q6H PRN PO PAIN LEVEL 1-3 OR FEVER 01/08/17 19:30 Acetaminophen/ Hydrocodone Bitart ([place] (5/325)) 1 tab Q6H PRN PO MODERATE PAIN LEVEL 4-6 01/08/17 19:30 01/10/17 14:30 1 TAB Morphine Sulfate (morphine) 2 mg Q4H PRN IV SEVERE PAIN LEVEL 7-10 01/08/17 19:30 01/09/17 12:50 DC 01/09/17 11:52 2 MG Docusate Sodium (Colace) 100 mg Q12H PRN PO CONSTIPATION 01/08/17 19:30 Magnesium Hydroxide (Milk Of Mag) 30 ml DAILY PRN PO CONSTIPATION 01/08/17 19:30 Sodium Biphosphate/ Sodium Phosphate (Fleet Enema) 133 ml DAILY PRN [place] CONSTIPATION 01/08/17 19:30 Pantoprazole 40 mg 40 mg DAILY@06 IV 01/09/17 06:00 01/10/17 05:32 40 MG Sodium Chloride (1/2 NS) 1,000 ml @ 75 mls/hr [id number] IV 01/08/17 19:02 01/10/17 05:34 75 MLS/HR Lorazepam (Ativan) 0.5 mg Q6H PRN IV ANXIETY 01/08/17 19:30 01/09/17 22:48 0.5 MG Albuterol/ Ipratropium (Duoneb) 3 ml Q4H RESP THERAPY PRN HHN SHORTNESS OF BREATH 01/08/17 19:30 Hydralazine HCl (Apresoline) 10 mg Q6H PRN IV ELEVATED BLOOD PRESSURE 01/08/17 19:30 Nitroglycerin (Nitroglycerin (Sl Tab) 0.4 Mg) 1 tab Q5M PRN SL ANGINA 01/08/17 19:30 Morphine Sulfate (morphine) 3 mg Q4H PRN IV SEVERE PAIN LEVEL 7-10 01/09/17 15:30 01/10/17 16:46 3 MG Constitutional: improved, other (Morbid obesity depression), No chills, No diaphoresis, No disoriented, No febrile, No no complaints, No poor po, No requiring IVF, No requiring O2 Eyes: no complaints, No discharge, No other, No pain, No redness, No visual change ENT: no complaints, No bleeding, No congestion, No discharge, No dysphagia, No other, No pain, No sore throat Respiratory: no complaints, No cough, No other, No pain, No pleuritic pain, No shortness of breath, No sputum, No wheezing Cardiovascular: no complaints, other (Elevated blood pressure), No chest pain, No edema, No lightheadedness, No orthopenea, No palpitations, No paroxysmal nocturnal dyspnea Gastrointestinal: pain, No blood, No constipation, No decreased appetite, No diarrhea, No flatus, No nausea, No no complaints, No other, No passing stool, No vomiting Genitourinary: bleeding Musculoskeletal: no complaints, other (Morbid obesity as I mentioned), No back pain, No bone/joint pain, No neck pain, No restricted range of motion , No swelling Skin: no complaints, No bruising, No erythema, No laceration, No other, No pruritis, No rash, No skin lesions Neurologic: no complaints, other (Difficult to evaluate), No confusion, No dizziness, No focal-weakness, No headache, No seizure, No syncope Endocrine: no complaints, No dry skin, No other, No polydypsia, No polyuria, No temp intolerance Lymphatic: no complaints Psychological: nl mood/affect, no complaints Immunologic: no complaints Additional Comments Due to her anemia she was given 2 units of packed cell Due to complaint of abdominal and pelvic pain to internal medicine is consulting She was a patient of Dr. Baker according to her who referred her to Dr. Barnett for surgical procedure Will notify Dr. Gonsalez regarding this referral as well. Internal medicine is involved in the workup of chronic abdominal pain pelvic pain as well as chronic bleeding and anemia. Past Medical History Medical History: other (fibroids) Past Surgical History Past Surgical Hx: other ( 4, gallbladder removal) Social History Alcohol Use: none Smoking Status: Never smoker Drug Use: none Exam/Review of Systems Vital Signs Vitals Vital Signs Date Time Temp Pulse Resp B/P Pulse Ox O2 Delivery O2 Flow Rate FiO2 01/10/17 14:00 98.1 92 18 96/46 96 01/08/17 14:23 Room Air Intake and Output 01/09/17 01/09/17 01/10/17 14:59 22:59 06:59 Intake Total 250 ml 1500 ml Output Total 550 ml Balance -300 ml 1500 ml Results Result Diagram: 01/10/17 0552 01/10/17 0552 Results 24 hrs Laboratory Tests Test 01/10/17 05:52 White Blood Count 7.9 Red Blood Count 3.92 L Hemoglobin 7.8 L Hematocrit 27.7 L Mean Corpuscular Volume 70.7 L Mean Corpuscular Hemoglobin 19.9 L Mean Corpuscular Hemoglobin Concent 28.2 L Red Cell Distribution Width 18.3 H Platelet Count 267 Mean Platelet Volume 10.4 Neutrophils % 64.5 Lymphocytes % 24.1 Monocytes % 9.0 Eosinophils % 1.6 Basophils % 0.3 Nucleated Red Blood Cells % 0.0 Neutrophils # 5.1 Lymphocytes # 1.9 Monocytes # 0.7 Eosinophils # 0.1 Basophils # 0.0 Nucleated Red Blood Cells # 0.0 Sodium Level 144 Potassium Level 4.2 Chloride Level 101 Carbon Dioxide Level 31 Anion Gap 16 Blood Urea Nitrogen 9 Creatinine 0.81 Glucose Level 97 Calcium Level 8.8 Medications Medications Current Medications Miscellaneous Information Patients own medicat... BID@ XX ; Start 01/08/17 at 16:00 Morphine Sulfate (morphine) 1 mg Q3H PRN IV pain Last administered on 04:49; Admin Dose 1 MG; Start 01/08/17 at 16:00 Ondansetron HCl (Zofran Inj) 4 mg Q6H PRN IV NAUSEA AND/OR VOMITING Last administered on 01/08/17 20:33; Admin Dose 4 MG; Start 01/08/17 at 16:30 Ondansetron HCl (Zofran Inj) 4 mg Q6H PRN IV NAUSEA AND/OR VOMITING; Start at 19:30 Acetaminophen (Tylenol Tab) 650 mg Q6H PRN PO PAIN LEVEL 1-3 OR FEVER; Start at 19:30 Acetaminophen/ Hydrocodone Bitart ([place] (5/325)) 1 tab Q6H PRN PO MODERATE PAIN LEVEL 4-6 Last administered on 01/10/17 14:30; Admin Dose 1 TAB; Start at 19:30 Docusate Sodium (Colace) 100 mg Q12H PRN PO CONSTIPATION; Start 01/08/17 at 19: 30 Magnesium Hydroxide (Milk Of Mag) 30 ml DAILY PRN PO CONSTIPATION; Start at 19:30 Sodium Biphosphate/ Sodium Phosphate (Fleet Enema) 133 ml DAILY PRN [place] CONSTIPATION; Start 01/08/17 at 19:30 Pantoprazole 40 mg 40 mg DAILY@06 IV Last administered on 01/10/17 05:32; Admin Dose 40 MG; Start 01/09/17 at 06:00 Sodium Chloride (1/2 NS) 1,000 ml @ 75 mls/hr [id number] IV Last administered on 01/10/17 05:34; Admin Dose 75 MLS/HR; Start 01/08/17 at 19:02 Lorazepam (Ativan) 0.5 mg Q6H PRN IV ANXIETY Last administered on 01/09/17 22: 48; Admin Dose 0.5 MG; Start 01/08/17 at 19:30 Hydralazine HCl (Apresoline) 10 mg Q6H PRN IV ELEVATED BLOOD PRESSURE; Start at 19:30 Nitroglycerin (Nitroglycerin (Sl Tab) 0.4 Mg) 1 tab Q5M PRN SL ANGINA; Start at 19:30 Morphine Sulfate (morphine) 3 mg Q4H PRN IV SEVERE PAIN LEVEL 7-10 Last administered on 01/10/17 16:46; Admin Dose 3 MG; Start 01/09/17 at 15:30 RON ADAN MD Jan 10, 2017 18:45
[2017-01-10 20:08] VITALS: BP 105/55; RESP 19
--- NOTE | 2017-01-10 22:41 | RADRPT ---
PROCEDURE: CHEST - 1 VIEW CLINICAL INDICATION: 46-year-old female with chest pain. TECHNIQUE: A single frontal AP semi-erect portable view of the chest was performed. The images we re reviewed on a PACS workstation. COMPARISON: None. FINDINGS: The cardiomediastinal silhouette has a normal appearance. There is a shallow inspiration. There is minimal bibasilar subsegmental atelectasis. There is no evidence for an infiltrate. There is no e vidence for congestive heart failure. There is no evidence for pneumothorax. The osseous structures are intact. IMPRESSION: 1. No evidence for active cardiopulmonary disease. 2. Shallow inspiration with minimal bibasilar subsegmental atelectasis. .Buck Silverman MD, Date Time Electronically viewed and signed by .Buck Silverman MD, on 01/10/2017 22:41 .M/
[2017-01-11] VITALS (7 sets, daily range): BP systolic 101–133; BP diastolic 51–69; PULSE 71; RESP 16–19
[2017-01-11] MEDS: morphine 2 MG INJ IV PRN ×5 (03:00→18:51)
[2017-01-11] MEDS: HYDROCODONE/APAP (5/325) TAB PO PRN ×2 (04:56→16:50)
[2017-01-11] MEDS: PANTOPRAZOLE 40 MG INJ IV SCH ×2 (05:36→17:44)
--- NOTE | 2017-01-11 12:23 | PN ---
Date/Time of Note Date/Time of Note DATE: 01/11/17 TIME: 12:20 Assessment/Plan VTE Prophylaxis VTE Prophylaxis Intervention: SCD's Lines/Catheters IV [facility] [place] Urinary Cath still in place: No Assessment/Plan Chief Complaint/Hosp Course 46-year-old female presenting with abdominal pain for 3 days with prior history of fibroids and ovarian cyst. 1. Abdominal pain: Likely secondary to patient's fibroids vs GI abnormality, also possibly secondary to ovarian cyst. Interestingly, pelvic ultrasound performed 3 days ago does not demonstrate any fibroids. Appreciate PROGRAM ENGAGEMENT DIRECTOR consult. Patient has chronic menometrorrhagia, and chronic iron deficiency anemia secondary to menometrorrhagia, with multiple blood transfusion as well as iron infusion, and is status post endometrial biopsy 7 months ago that was benign. -Continue pain control medications, IV fluids. Follow-up PROGRAM ENGAGEMENT DIRECTOR consult recommendations. -Awaiting gynecological oncology team eval -Follow-up endoscopy results, and GI recommendations. 2. GI prophylaxis: PPI 3. DVT prophylaxis: SCDs Problems: Subjective 24 Hr Interval Summary Free Text/Dictation Patient received her blood transfusions earlier today. Presently off the floor at endoscopy. Exam/Review of Systems Vital Signs Vitals Vital Signs Date Time Temp Pulse Resp B/P Pulse Ox O2 Delivery O2 Flow Rate FiO2 01/11/17 11:50 98.2 79 16 108/51 94 01/08/17 14:23 Room Air Intake and Output 01/10/17 01/10/17 01/11/17 15:00 23:00 07:00 Intake Total 2240 ml 1620 ml Balance 2240 ml 1620 ml Exam Physical exam: -Unable to be performed presently as patient is off the floor at endoscopy. Results Result Diagram: 01/10/17 0552 01/10/17 0552 Medications Medications Current Medications Miscellaneous Information Patients own medicat... BID@ XX ; Start 01/08/17 at 16:00 Morphine Sulfate (morphine) 1 mg Q3H PRN IV pain Last administered on 04:49; Admin Dose 1 MG; Start 01/08/17 at 16:00 Ondansetron HCl (Zofran Inj) 4 mg Q6H PRN IV NAUSEA AND/OR VOMITING Last administered on 01/08/17 20:33; Admin Dose 4 MG; Start 01/08/17 at 16:30 Ondansetron HCl (Zofran Inj) 4 mg Q6H PRN IV NAUSEA AND/OR VOMITING; Start at 19:30 Acetaminophen (Tylenol Tab) 650 mg Q6H PRN PO PAIN LEVEL 1-3 OR FEVER; Start at 19:30 Acetaminophen/ Hydrocodone Bitart ([place] (5/325)) 1 tab Q6H PRN PO MODERATE PAIN LEVEL 4-6 Last administered on 01/11/17 04:56; Admin Dose 1 TAB; Start at 19:30 Docusate Sodium (Colace) 100 mg Q12H PRN PO CONSTIPATION; Start 01/08/17 at 19: 30 Magnesium Hydroxide (Milk Of Mag) 30 ml DAILY PRN PO CONSTIPATION; Start at 19:30 Sodium Biphosphate/ Sodium Phosphate (Fleet Enema) 133 ml DAILY PRN [place] CONSTIPATION; Start 01/08/17 at 19:30 Pantoprazole 40 mg 40 mg DAILY@06 IV Last administered on 01/11/17 05:36; Admin Dose 40 MG; Start 01/09/17 at 06:00 Sodium Chloride (1/2 NS) 1,000 ml @ 75 mls/hr [id number] IV Last administered on 01/10/17 18:55; Admin Dose 75 MLS/HR; Start 01/08/17 at 19:02 Lorazepam (Ativan) 0.5 mg Q6H PRN IV ANXIETY Last administered on 01/09/17 22: 48; Admin Dose 0.5 MG; Start 01/08/17 at 19:30 Hydralazine HCl (Apresoline) 10 mg Q6H PRN IV ELEVATED BLOOD PRESSURE; Start at 19:30 Nitroglycerin (Nitroglycerin (Sl Tab) 0.4 Mg) 1 tab Q5M PRN SL ANGINA; Start at 19:30 Morphine Sulfate (morphine) 3 mg Q4H PRN IV SEVERE PAIN LEVEL 7-10 Last administered on 01/11/17 12:03; Admin Dose 3 MG; Start 01/09/17 at 15:30 SARAH HAYNES Jan 11, 2017 12:23
[2017-01-11 12:24] LABS: ADD SCAN DIFF NO
[2017-01-11 12:30] LABS: BASOPHILS % 0.2 % (0.0-2.0); EOSINOPHILS # 0.1 10^3/ul (0.0-0.5); EOSINOPHILS % 1.6 % (0.0-7.0); HEMATOCRIT 32.1 % (37.0-47.0); HEMOGLOBIN 9.4 g/dl (12.0-16.0); LYMPHOCYTES # 1.9 10^3/ul (0.8-2.9); LYMPHOCYTES % 22.1 % (15.0-51.0); MEAN CORPUSCULAR HGB CONC 29.3 g/dl (32.0-37.0); MEAN CORPUSCULAR VOLUME 71.7 fl (82.0-101.0); MEAN PLATELET VOLUME 10.5 fl (7.4-10.4); MONOCYTE # 0.6 10^3/ul (0.3-0.9); MONOCYTES % 6.7 % (0.0-11.0); NEUTROPHIL # 5.9 10^3/ul (1.6-7.5); NEUTROPHILS % 68.6 % (39.0-77.0); PLATELET COUNT 251 10^3/UL (140-415); RED BLOOD COUNT 4.48 10^6/ul (4.20-5.40); RED CELL DISTRIBUTION WIDTH 18.8 % (11.5-14.5); WHITE BLOOD COUNT 8.5 10^3/ul (4.8-10.8)
[2017-01-11 12:51] LABS: MAGNESIUM 1.8 mg/dl (1.7-2.5); PHOSPHORUS 3.3 mg/dl (2.5-4.9)
[2017-01-11 12:57] LABS: CALCIUM 8.3 mg/dl (8.4-10.2); CREATININE 0.78 mg/dl (0.44-1.00); POTASSIUM 4.4 mmol/L (3.5-5.1)
[2017-01-11] MEDS ORDERED: LIDOCAINE 2% (SDV) 5 ML INJ ONE (13:25)
[2017-01-11] MEDS ORDERED: PROPOFOL 40 ML ONE (13:25)
[2017-01-11] MEDS ORDERED: FENTAnyl 50 MCG/ML VIAL ONE (13:25)
[2017-01-11] MEDS: SOD CHLORIDE 0.45% 1,000 ML IV SCH (16:00)
--- NOTE | 2017-01-11 18:34 | QN ---
Documentation Comment patient is seen at the bedside Stable No Active Vaginal bleeidng Still complains of pain Abd soft NT ND Genitalia No blood at perinium Hb >9 -->patient is pending of a consult with --->patient's questions answered DAYO BAILEY M.D. Jan 11, 2017 18:34
[2017-01-12] MEDS: morphine 2 MG INJ IV PRN ×6 (00:44→22:01)
[2017-01-12 02:00] VITALS: BP 114/56; RESP 19
[2017-01-12] MEDS: SOD CHLORIDE 0.45% 1,000 ML IV SCH ×3 (03:02→22:04)
[2017-01-12] MEDS: HYDROCODONE/APAP (5/325) TAB PO PRN ×3 (03:07→19:46)
[2017-01-12] MEDS: PANTOPRAZOLE 40 MG INJ IV SCH ×2 (05:24→17:41)
[2017-01-12 05:56] LABS: BASOPHILS % 0.2 % (0.0-2.0); EOSINOPHILS # 0.2 10^3/ul (0.0-0.5); EOSINOPHILS % 1.9 % (0.0-7.0); HEMATOCRIT 31.1 % (37.0-47.0); HEMOGLOBIN 9.2 g/dl (12.0-16.0); LYMPHOCYTES # 1.7 10^3/ul (0.8-2.9); MEAN CORPUSCULAR HEMOGLOBIN 21.6 pg (29.0-33.0); MEAN CORPUSCULAR HGB CONC 29.6 g/dl (32.0-37.0); MEAN CORPUSCULAR VOLUME 73.2 fl (82.0-101.0); MEAN PLATELET VOLUME 10.4 fl (7.4-10.4); MONOCYTE # 0.4 10^3/ul (0.3-0.9); MONOCYTES % 5.2 % (0.0-11.0); NEUTROPHIL # 5.7 10^3/ul (1.6-7.5); NEUTROPHILS % 71.1 % (39.0-77.0); PLATELET COUNT 236 10^3/UL (140-415); RED BLOOD COUNT 4.25 10^6/ul (4.20-5.40); RED CELL DISTRIBUTION WIDTH 18.7 % (11.5-14.5)
[2017-01-12 06:34] LABS: CALCIUM 8.4 mg/dl (8.4-10.2); CREATININE 0.95 mg/dl (0.44-1.00); POTASSIUM 4.6 mmol/L (3.5-5.1)
[2017-01-12 07:40] VITALS: BP 117/61; RESP 16
--- NOTE | 2017-01-12 09:14 | QN ---
Documentation Comment Patient is a 46-year-old morbidly obese who was admitted for dysfunctional uterine bleeding Status post 2 units of packed RBCs Her recent hemoglobin is 9.2 Patient is complaining of some vaginal bleeding at this time and pelvic pain Vital signs stable Pelvic ultrasound January 09, 2017 indicating a uterus measuring 10 cm with an endometrial lining of 0.7 cm Bilateral normal ovaries No significant abnormalities A/P DUB and morbid obesity Prescription for Provera 10 mg daily Patient was counseled that she should make an appointment with a cone worker as an outpatient and to be scheduled for either D&C hysteroscopy or definitive surgical management by a total hysterectomy JOSELIN CONNELLY MD Jan 12, 2017 09:14
--- NOTE | 2017-01-12 09:34 | PN ---
Date/Time of Note Date/Time of Note DATE: 01/12/17 TIME: 09:28 Assessment/Plan VTE Prophylaxis VTE Prophylaxis Intervention: ambulation Lines/Catheters IV [facility]ter Type (from [facility]): Peripheral IV Urinary Cath still in place: No Assessment/Plan Assessment/Plan Assessment * Abdominal pain T/C fibroids * Anemia * EGD Esophagitis Multiple shallow antral ulcers R/O H pylori * obesity Plan * Pantoprazole 40 mg BID X 6 weeks * continue present management * pain control * further orders will depend on clinical course * case discussed with DR Marques Subjective 24 Hr Interval Summary Free Text/Dictation * Course reviewed with RN * Patient seen and examined * EGD Esophagitis Multiple shallow antral ulcers R/O H pylori * No untoward events overnight Exam/Review of Systems Vital Signs Vitals Vital Signs Date Time Temp Pulse Resp B/P Pulse Ox O2 Delivery O2 Flow Rate FiO2 01/12/17 02:00 98.4 72 19 114/56 97 01/11/17 12:44 Room Air Intake and Output 01/11/17 01/11/17 01/12/17 15:00 23:00 07:00 Intake Total 875 ml 655 ml 1480 ml Balance 875 ml 655 ml 1480 ml Exam Constitutional: alert, oriented Psych: nl mood/affect, no complaints Head: normocephalic Neck: non-tender, supple Respiratory: clear to auscultation, normal air movement Cardiovascular: nl pulses, regular rate and rhythm Gastrointestinal: nl liver, spleen, non-tender, soft Musculoskeletal: nl extremities to inspection, nl gait and stance Extremities: normal pulses Neurological: nl speech, nl strength Skin: nl turgor, No rash or lesions Results Result Diagram: 01/12/17 0456 01/12/17 0456 Results 24 hrs Laboratory Tests Test 01/11/17 12:02 01/11/17 12:04 01/12/17 04:56 01/12/17 07:07 White Blood Count 8.5 8.0 Red Blood Count 4.48 4.25 Hemoglobin 9.4 #L 9.2 L Hematocrit 32.1 L 31.1 L Mean Corpuscular Volume 71.7 L 73.2 L Mean Corpuscular Hemoglobin 21.0 L 21.6 L Mean Corpuscular Hemoglobin Concent 29.3 L 29.6 L Red Cell Distribution Width 18.8 H 18.7 H Platelet Count 251 236 Mean Platelet Volume 10.5 H 10.4 Neutrophils % 68.6 71.1 Lymphocytes % 22.1 21.0 Monocytes % 6.7 5.2 Eosinophils % 1.6 1.9 Basophils % 0.2 0.2 Neutrophils # 5.9 5.7 Lymphocytes # 1.9 1.7 Monocytes # 0.6 0.4 Eosinophils # 0.1 0.2 Basophils # 0.0 0.0 Nucleated Red Blood Cells # 0.0 0.0 Sodium Level 142 143 Potassium Level 4.4 4.6 Chloride Level 103 102 Carbon Dioxide Level 27 30 Anion Gap 16 16 Blood Urea Nitrogen 10 11 Creatinine 0.78 0.95 Glucose Level 96 139 # Calcium Level 8.3 L 8.4 Phosphorus Level 3.3 Magnesium Level 1.8 Nucleated Red Blood Cells % 0.0 Lab Scanned Report BLOOD TRANSFUSION Medications Medications Current Medications Miscellaneous Information Patients own medicat... BID@10,16 XX ; Start 01/08/17 at 16:00 Morphine Sulfate (morphine) 1 mg Q3H PRN IV pain Last administered on 04:49; Admin Dose 1 MG; Start 01/08/17 at 16:00 Ondansetron HCl (Zofran Inj) 4 mg Q6H PRN IV NAUSEA AND/OR VOMITING Last administered on 01/08/17 20:33; Admin Dose 4 MG; Start 01/08/17 at 16:30 Ondansetron HCl (Zofran Inj) 4 mg Q6H PRN IV NAUSEA AND/OR VOMITING; Start at 19:30 Acetaminophen (Tylenol Tab) 650 mg Q6H PRN PO PAIN LEVEL 1-3 OR FEVER; Start at 19:30 Acetaminophen/ Hydrocodone Bitart ([place] (5/325)) 1 tab Q6H PRN PO MODERATE PAIN LEVEL 4-6 Last administered on 01/12/17 03:07; Admin Dose 1 TAB; Start at 19:30 Docusate Sodium (Colace) 100 mg Q12H PRN PO CONSTIPATION; Start 01/08/17 at 19: 30 Magnesium Hydroxide (Milk Of Mag) 30 ml DAILY PRN PO CONSTIPATION; Start at 19:30 Sodium Biphosphate/ Sodium Phosphate 133 ml 133 ml DAILY PRN [place] CONSTIPATION; Start 01/08/17 at 19:30 Sodium Chloride (1/2 NS) 1,000 ml @ 75 mls/hr [id number] IV Last administered on 01/12/17 06:49; Admin Dose 75 MLS/HR; Start 01/08/17 at 19:02 Lorazepam (Ativan) 0.5 mg Q6H PRN IV ANXIETY Last administered on 01/09/17 22: 48; Admin Dose 0.5 MG; Start 01/08/17 at 19:30 Hydralazine HCl (Apresoline) 10 mg Q6H PRN IV ELEVATED BLOOD PRESSURE; Start at 19:30 Nitroglycerin (Nitroglycerin (Sl Tab) 0.4 Mg) 1 tab Q5M PRN SL ANGINA; Start at 19:30 Morphine Sulfate (morphine) 3 mg Q4H PRN IV SEVERE PAIN LEVEL 7-10 Last administered on 01/12/17 05:24; Admin Dose 3 MG; Start 01/09/17 at 15:30 Pantoprazole (Protonix Iv) 40 mg BID@06,18 IV Last administered on 01/12/17 05 :24; Admin Dose 40 MG; Start 01/11/17 at 18:00 Medroxyprogesterone Acetate (Provera) 10 mg DAILY PO ; Start 01/12/17 at 09:00 ANU CORONA NP Jan 12, 2017 09:34
--- NOTE | 2017-01-12 13:31 | PN ---
Date/Time of Note Date/Time of Note DATE: 01/12/17 TIME: 13:28 Assessment/Plan VTE Prophylaxis VTE Prophylaxis Intervention: SCD's Lines/Catheters IV C[facility]ter Type (from [facility]): Peripheral IV Assessment/Plan Chief Complaint/Hosp Course 46-year-old female presenting with abdominal pain for 3 days with prior history of fibroids and ovarian cyst. 1. Abdominal pain: Likely secondary to patient's fibroids vs GI abnormality, also possibly secondary to ovarian cyst. Interestingly, pelvic ultrasound performed 4 days ago does not demonstrate any fibroids. Appreciate [facility] consult. Patient has chronic menometrorrhagia, and chronic iron deficiency anemia secondary to menometrorrhagia, with multiple blood transfusion as well as iron infusion, and is status post endometrial biopsy 7 months ago that was benign. -Continue pain control medications, IV fluids. Follow-up [facility] consult recommendations, further Mejia started on Provera today -Awaiting gynecological oncology team eval, per discussion with them over the phone, patient is tentatively scheduled for hysterectomy in 2 days. -Per GI, continue PPI twice daily given her esophagitis and shallow antral ulcer findings on EGD yesterday. 2. GI prophylaxis: PPI twice daily 3. DVT prophylaxis: SCDs Problems: Subjective 24 Hr Interval Summary Free Text/Dictation Patient seen by [facility] team recommended to be started on Provera. Still with some occasional vaginal bleeding. No acute events overnight otherwise. Tentatively scheduled for hysterectomy surgery in 2 days. Patient had EGD performed yesterday. Exam/Review of Systems Vital Signs Vitals Vital Signs Date Time Temp Pulse Resp B/P Pulse Ox O2 Delivery O2 Flow Rate FiO2 01/12/17 07:40 98.2 72 16 117/61 93 01/11/17 12:44 Room Air Intake and Output 01/11/17 01/11/17 01/12/17 15:00 23:00 07:00 Intake Total 875 ml 655 ml 1480 ml Balance 875 ml 655 ml 1480 ml Exam General: Lying in bed in mild distress, but more alert Neck: Supple HEENT: Pupils equal round reactive to light extraocular muscles are intact Respiratory: Clear to auscultation bilaterally Cardiovascular: S1-S2 heard no rubs or gallops GI: Tenderness to palpation, otherwise soft, no rebound or guarding Muscular skeletal: No lower extremity edema bilaterally Neurologic: No focal deficits Results Result Diagram: 01/12/17 0456 01/12/17 0456 Results 24 hrs Laboratory Tests Test 01/12/17 04:56 01/12/17 07:07 White Blood Count 8.0 Red Blood Count 4.25 Hemoglobin 9.2 L Hematocrit 31.1 L Mean Corpuscular Volume 73.2 L Mean Corpuscular Hemoglobin 21.6 L Mean Corpuscular Hemoglobin Concent 29.6 L Red Cell Distribution Width 18.7 H Platelet Count 236 Mean Platelet Volume 10.4 Neutrophils % 71.1 Lymphocytes % 21.0 Monocytes % 5.2 Eosinophils % 1.9 Basophils % 0.2 Nucleated Red Blood Cells % 0.0 Neutrophils # 5.7 Lymphocytes # 1.7 Monocytes # 0.4 Eosinophils # 0.2 Basophils # 0.0 Nucleated Red Blood Cells # 0.0 Sodium Level 143 Potassium Level 4.6 Chloride Level 102 Carbon Dioxide Level 30 Anion Gap 16 Blood Urea Nitrogen 11 Creatinine 0.95 Glucose Level 139 # Calcium Level 8.4 Lab Scanned Report BLOOD TRANSFUSION Medications Medications Current Medications Miscellaneous Information Patients own medicat... BID@ XX ; Start 01/08/17 at 16:00 Morphine Sulfate (morphine) 1 mg Q3H PRN IV pain Last administered on 04:49; Admin Dose 1 MG; Start 01/08/17 at 16:00 Ondansetron HCl (Zofran Inj) 4 mg Q6H PRN IV NAUSEA AND/OR VOMITING Last administered on 01/08/17 20:33; Admin Dose 4 MG; Start 01/08/17 at 16:30 Ondansetron HCl (Zofran Inj) 4 mg Q6H PRN IV NAUSEA AND/OR VOMITING; Start at 19:30 Acetaminophen (Tylenol Tab) 650 mg Q6H PRN PO PAIN LEVEL 1-3 OR FEVER; Start at 19:30 Acetaminophen/ Hydrocodone Bitart ([place] (5/325)) 1 tab Q6H PRN PO MODERATE PAIN LEVEL 4-6 Last administered on 01/12/17 10:54; Admin Dose 1 TAB; Start at 19:30 Docusate Sodium (Colace) 100 mg Q12H PRN PO CONSTIPATION; Start 01/08/17 at 19: 30 Magnesium Hydroxide (Milk Of Mag) 30 ml DAILY PRN PO CONSTIPATION; Start at 19:30 Sodium Biphosphate/ Sodium Phosphate 133 ml 133 ml DAILY PRN [place] CONSTIPATION; Start 01/08/17 at 19:30 Sodium Chloride (1/2 NS) 1,000 ml @ 75 mls/hr [id number] IV Last administered on 01/12/17 06:49; Admin Dose 75 MLS/HR; Start 01/08/17 at 19:02 Lorazepam (Ativan) 0.5 mg Q6H PRN IV ANXIETY Last administered on 01/09/17 22: 48; Admin Dose 0.5 MG; Start 01/08/17 at 19:30 Hydralazine HCl (Apresoline) 10 mg Q6H PRN IV ELEVATED BLOOD PRESSURE; Start at 19:30 Nitroglycerin (Nitroglycerin (Sl Tab) 0.4 Mg) 1 tab Q5M PRN SL ANGINA; Start at 19:30 Morphine Sulfate (morphine) 3 mg Q4H PRN IV SEVERE PAIN LEVEL 7-10 Last administered on 01/12/17 13:17; Admin Dose 3 MG; Start 01/09/17 at 15:30 Pantoprazole (Protonix Iv) 40 mg BID@06,18 IV Last administered on 01/12/17 05 :24; Admin Dose 40 MG; Start 01/11/17 at 18:00 Medroxyprogesterone Acetate (Provera) 10 mg DAILY PO ; Start 01/12/17 at 09:00 SARAH HAYNES Jan 12, 2017 13:31
[2017-01-12 14:05] VITALS: BP 142/62; RESP 16
[2017-01-12] MEDS: MEDROXYPROGESTERONE 10 MG TAB PO SCH (15:25)
[2017-01-12] MEDS: LORAZEPAM 2 MG INJ IV PRN ×2 (15:28→23:22)
--- NOTE | 2017-01-12 20:23 | CONS ---
Date/Time of Note Date/Time of Note DATE: 01/12/17 TIME: Consultation Date/Type/Reason Admit Date/Time January 10, 2017 Hospital consult Reason for Consultation Bijan Jarquin M.D. [facility] History and Physical Examination Alli Harris Jan 12, 2017 Age: 46 : 1970 Physicians: Educational Aid: Public Health Engineer: Oncologist: Other: History of the Present Illness: A 46 year old with with years of menorrhagia and intermenstrual and servere cramps / pain. Of note, during the hospitalization the patient had an EGD and has a esophagatis and Past Medical History: Surgical: CSx4 Medical: None Medications: reviewed gardisil Colonoscopy Allergies: No active allergies recorded Family History: Noncontributory Social History: Noncontributory Review of Systems: Negative except for above noted Physical Examination General: Alert. Obese. HEENT: Pupils are equal, round, reactive to light and accommodation. Neck: Supple with no masses of lymphadenopathy. Breast: Deferred due to recent examination and responsibility of primary care physician. Chest: Clear to auscultation and percussion with no rales, ronchi, or wheeze. Heart: Normal rhythm with no murmur. Abdomen: Non tender. No masses, ascites, or organomegaly. Pelvis: Long relatively narrow vagina with globular uterus, moderately tender Rectal: Confirmatory with pelvic exam. Neurological: Grossly intact Assessment: Probably symptomatic adenomyosis with a possibility of endometriosis. Plan: Total laparoscopic hysterectomy, possible laparoscopic supracervical hysterectomy, possible BSO, possible staging, possible open. All risks and benefits of this procedure have been discussed in detail with the patient, as well as alternative treatment strategies and their implications. The patient is aware that there is some possibility of a blood transfusion and its associated risks and benefits. She wishes to proceed and gives her informed consent. Bijan Jarquin M.D. Constitutional: improved, other (Morbid obesity depression), No chills, No diaphoresis, No disoriented, No febrile, No no complaints, No poor po, No requiring IVF, No requiring O2 Eyes: no complaints, No discharge, No other, No pain, No redness, No visual change ENT: no complaints, No bleeding, No congestion, No discharge, No dysphagia, No other, No pain, No sore throat Respiratory: no complaints, No cough, No other, No pain, No pleuritic pain, No shortness of breath, No sputum, No wheezing Cardiovascular: no complaints, other (Elevated blood pressure), No chest pain, No edema, No lightheadedness, No orthopenea, No palpitations, No paroxysmal nocturnal dyspnea Gastrointestinal: pain, No blood, No constipation, No decreased appetite, No diarrhea, No flatus, No nausea, No no complaints, No other, No passing stool, No vomiting Genitourinary: bleeding Musculoskeletal: no complaints, other (Morbid obesity as I mentioned), No back pain, No bone/joint pain, No neck pain, No restricted range of motion , No swelling Skin: no complaints, No bruising, No erythema, No laceration, No other, No pruritis, No rash, No skin lesions Neurologic: no complaints, other (Difficult to evaluate), No confusion, No dizziness, No focal-weakness, No headache, No seizure, No syncope Endocrine: no complaints, No dry skin, No other, No polydypsia, No polyuria, No temp intolerance Lymphatic: no complaints Psychological: nl mood/affect, no complaints Immunologic: no complaints Past Medical History Medical History: other (fibroids) Past Surgical History Past Surgical Hx: other ( 4, gallbladder removal) Social History Alcohol Use: none Smoking Status: Never smoker Drug Use: none Exam/Review of Systems Vital Signs Vitals Vital Signs Date Time Temp Pulse Resp B/P Pulse Ox O2 Delivery O2 Flow Rate FiO2 01/12/17 14:05 98.6 80 16 142/62 92 01/11/17 12:44 Room Air Intake and Output 01/11/17 01/11/17 01/12/17 14:59 22:59 06:59 Intake Total 875 ml 655 ml 1480 ml Balance 875 ml 655 ml 1480 ml Results Result Diagram: 01/12/17 0456 01/12/17 0456 Results 24 hrs Laboratory Tests Test 01/12/17 04:56 01/12/17 07:07 01/12/17 15:04 White Blood Count 8.0 Red Blood Count 4.25 Hemoglobin 9.2 L Hematocrit 31.1 L Mean Corpuscular Volume 73.2 L Mean Corpuscular Hemoglobin 21.6 L Mean Corpuscular Hemoglobin Concent 29.6 L Red Cell Distribution Width 18.7 H Platelet Count 236 Mean Platelet Volume 10.4 Neutrophils % 71.1 Lymphocytes % 21.0 Monocytes % 5.2 Eosinophils % 1.9 Basophils % 0.2 Nucleated Red Blood Cells % 0.0 Neutrophils # 5.7 Lymphocytes # 1.7 Monocytes # 0.4 Eosinophils # 0.2 Basophils # 0.0 Nucleated Red Blood Cells # 0.0 Sodium Level 143 Potassium Level 4.6 Chloride Level 102 Carbon Dioxide Level 30 Anion Gap 16 Blood Urea Nitrogen 11 Creatinine 0.95 Glucose Level 139 # Calcium Level 8.4 Lab Scanned Report BLOOD TRANSFUSION Troponin I < 0.012 Medications Medications Current Medications Miscellaneous Information Patients own medicat... BID@ XX ; Start 01/08/17 at 16:00 Morphine Sulfate (morphine) 1 mg Q3H PRN IV pain Last administered on 04:49; Admin Dose 1 MG; Start 01/08/17 at 16:00 Ondansetron HCl (Zofran Inj) 4 mg Q6H PRN IV NAUSEA AND/OR VOMITING Last administered on 01/08/17 20:33; Admin Dose 4 MG; Start 01/08/17 at 16:30 Ondansetron HCl (Zofran Inj) 4 mg Q6H PRN IV NAUSEA AND/OR VOMITING; Start at 19:30 Acetaminophen (Tylenol Tab) 650 mg Q6H PRN PO PAIN LEVEL 1-3 OR FEVER; Start at 19:30 Acetaminophen/ Hydrocodone Bitart ([place] (5/325)) 1 tab Q6H PRN PO MODERATE PAIN LEVEL 4-6 Last administered on 01/12/17 19:46; Admin Dose 1 TAB; Start at 19:30 Docusate Sodium (Colace) 100 mg Q12H PRN PO CONSTIPATION; Start 01/08/17 at 19: 30 Magnesium Hydroxide (Milk Of Mag) 30 ml DAILY PRN PO CONSTIPATION; Start at 19:30 Sodium Biphosphate/ Sodium Phosphate 133 ml 133 ml DAILY PRN [place] CONSTIPATION; Start 01/08/17 at 19:30 Sodium Chloride (1/2 NS) 1,000 ml @ 75 mls/hr [id number] IV Last administered on 01/12/17 06:49; Admin Dose 75 MLS/HR; Start 01/08/17 at 19:02 Lorazepam (Ativan) 0.5 mg Q6H PRN IV ANXIETY Last administered on 01/12/17 15: 28; Admin Dose 0.5 MG; Start 01/08/17 at 19:30 Hydralazine HCl (Apresoline) 10 mg Q6H PRN IV ELEVATED BLOOD PRESSURE; Start at 19:30 Nitroglycerin (Nitroglycerin (Sl Tab) 0.4 Mg) 1 tab Q5M PRN SL ANGINA; Start at 19:30 Morphine Sulfate (morphine) 3 mg Q4H PRN IV SEVERE PAIN LEVEL 7-10 Last administered on 01/12/17 17:41; Admin Dose 3 MG; Start 01/09/17 at 15:30 Pantoprazole (Protonix Iv) 40 mg BID@,18 IV Last administered on 01/12/17 17 :41; Admin Dose 40 MG; Start 01/11/17 at 18:00 Medroxyprogesterone Acetate (Provera) 10 mg DAILY PO Last administered on 15:25; Admin Dose 10 MG; Start 01/12/17 at 09:00 BIJAN JARQUIN MD Jan 12, 2017 20:23
[2017-01-12 21:30] VITALS: BP 108/51; RESP 20
[2017-01-13 02:00] VITALS: BP 134/60; RESP 18
[2017-01-13] MEDS: morphine 2 MG INJ IV PRN ×4 (02:45→21:24)
[2017-01-13 05:25] LABS: BASOPHILS % 0.1 % (0.0-2.0); EOSINOPHILS # 0.1 10^3/ul (0.0-0.5); EOSINOPHILS % 1.6 % (0.0-7.0); HEMATOCRIT 32.8 % (37.0-47.0); HEMOGLOBIN 9.6 g/dl (12.0-16.0); LYMPHOCYTES # 2.4 10^3/ul (0.8-2.9); LYMPHOCYTES % 28.6 % (15.0-51.0); MEAN CORPUSCULAR HEMOGLOBIN 21.3 pg (29.0-33.0); MEAN CORPUSCULAR HGB CONC 29.3 g/dl (32.0-37.0); MEAN CORPUSCULAR VOLUME 72.9 fl (82.0-101.0); MEAN PLATELET VOLUME 10.4 fl (7.4-10.4); MONOCYTE # 0.5 10^3/ul (0.3-0.9); MONOCYTES % 5.5 % (0.0-11.0); NEUTROPHIL # 5.3 10^3/ul (1.6-7.5); NEUTROPHILS % 63.6 % (39.0-77.0); PLATELET COUNT 253 10^3/UL (140-415); RED CELL DISTRIBUTION WIDTH 19.5 % (11.5-14.5); WHITE BLOOD COUNT 8.3 10^3/ul (4.8-10.8)
[2017-01-13] MEDS: PANTOPRAZOLE 40 MG INJ IV SCH ×2 (05:26→17:43)
[2017-01-13 05:37] LABS: INR 0.98
[2017-01-13 05:55] LABS: CALCIUM 8.8 mg/dl (8.4-10.2); CREATININE 0.9 mg/dl (0.44-1.00); POTASSIUM 4.5 mmol/L (3.5-5.1)
[2017-01-13] MEDS ORDERED: PEG/ELECTROLYTES 4L BTL PO ONE ×2 (08:00→09:00)
[2017-01-13] MEDS: MEDROXYPROGESTERONE 10 MG TAB PO SCH (08:21)
[2017-01-13 09:03] VITALS: BP 117/52; RESP 18
[2017-01-13] MEDS: HYDROCODONE/APAP (5/325) TAB PO PRN ×3 (09:34→23:47)
--- NOTE | 2017-01-13 09:39 | PN ---
Date/Time of Note Date/Time of Note DATE: 01/13/17 TIME: 09:37 Assessment/Plan VTE Prophylaxis VTE Prophylaxis Intervention: ambulation Lines/Catheters IV Catheter Type (from [facility]rs[facility]): Peripheral IV Assessment/Plan Assessment/Plan Assessment * Abdominal pain T/C fibroids * Anemia * EGD Esophagitis Multiple shallow antral ulcers R/O H pylori * obesity Plan * Pantoprazole 40 mg BID X 6 weeks * continue present management * pain control * further orders will depend on clinical course * case discussed with DR Marques Subjective 24 Hr Interval Summary Free Text/Dictation * course reviewed with RN * Patient seen and examined * no untoward events overnight Exam/Review of Systems Vital Signs Vitals Vital Signs Date Time Temp Pulse Resp B/P Pulse Ox O2 Delivery O2 Flow Rate FiO2 01/13/17 09:03 98.0 76 18 117/52 95 01/11/17 12:44 Room Air Intake and Output 01/12/17 01/12/17 01/13/17 15:00 23:00 07:00 Intake Total 2070 ml 820 ml Balance 2070 ml 820 ml Exam Constitutional: alert Neck: non-tender, supple Respiratory: clear to auscultation, normal air movement Cardiovascular: nl pulses, regular rate and rhythm Gastrointestinal: non-tender, soft Musculoskeletal: nl extremities to inspection, nl gait and stance Extremities: normal pulses Neurological: nl mental status, nl speech, nl strength Skin: nl turgor Results Result Diagram: 01/13/17 0450 01/13/17 0450 Results 24 hrs Laboratory Tests Test 01/12/17 15:04 01/13/17 04:50 Troponin I < 0.012 White Blood Count 8.3 Red Blood Count 4.50 Hemoglobin 9.6 L Hematocrit 32.8 L Mean Corpuscular Volume 72.9 L Mean Corpuscular Hemoglobin 21.3 L Mean Corpuscular Hemoglobin Concent 29.3 L Red Cell Distribution Width 19.5 H Platelet Count 253 Mean Platelet Volume 10.4 Neutrophils % 63.6 Lymphocytes % 28.6 Monocytes % 5.5 Eosinophils % 1.6 Basophils % 0.1 Nucleated Red Blood Cells % 0.0 Neutrophils # 5.3 Lymphocytes # 2.4 Monocytes # 0.5 Eosinophils # 0.1 Basophils # 0.0 Nucleated Red Blood Cells # 0.0 Prothrombin Time 13.0 Prothrombin Time Ratio 1.0 INR International Normalized Ratio 0.98 Sodium Level 145 H Potassium Level 4.5 Chloride Level 102 Carbon Dioxide Level 32 H Anion Gap 16 Blood Urea Nitrogen 9 Creatinine 0.90 Glucose Level 104 Calcium Level 8.8 Medications Medications Current Medications Miscellaneous Information Patients own medicat... BID@10,16 XX ; Start 01/08/17 at 16:00 Morphine Sulfate (morphine) 1 mg Q3H PRN IV pain Last administered on 04:49; Admin Dose 1 MG; Start 01/08/17 at 16:00 Ondansetron HCl (Zofran Inj) 4 mg Q6H PRN IV NAUSEA AND/OR VOMITING Last administered on 01/08/17 20:33; Admin Dose 4 MG; Start 01/08/17 at 16:30 Ondansetron HCl (Zofran Inj) 4 mg Q6H PRN IV NAUSEA AND/OR VOMITING; Start at 19:30 Acetaminophen (Tylenol Tab) 650 mg Q6H PRN PO PAIN LEVEL 1-3 OR FEVER; Start at 19:30 Acetaminophen/ Hydrocodone Bitart ([place] (5/325)) 1 tab Q6H PRN PO MODERATE PAIN LEVEL 4-6 Last administered on 01/13/17 09:34; Admin Dose 1 TAB; Start at 19:30 Docusate Sodium (Colace) 100 mg Q12H PRN PO CONSTIPATION; Start 01/08/17 at 19: 30 Magnesium Hydroxide (Milk Of Mag) 30 ml DAILY PRN PO CONSTIPATION; Start at 19:30 Sodium Biphosphate/ Sodium Phosphate 133 ml 133 ml DAILY PRN [place] CONSTIPATION; Start 01/08/17 at 19:30 Sodium Chloride (1/2 NS) 1,000 ml @ 75 mls/hr [id number] IV Last administered on 01/12/17 22:04; Admin Dose 75 MLS/HR; Start 01/08/17 at 19:02 Lorazepam (Ativan) 0.5 mg Q6H PRN IV ANXIETY Last administered on 01/12/17 23: 22; Admin Dose 0.5 MG; Start 01/08/17 at 19:30 Hydralazine HCl (Apresoline) 10 mg Q6H PRN IV ELEVATED BLOOD PRESSURE; Start at 19:30 Nitroglycerin (Nitroglycerin (Sl Tab) 0.4 Mg) 1 tab Q5M PRN SL ANGINA; Start at 19:30 Morphine Sulfate (morphine) 3 mg Q4H PRN IV SEVERE PAIN LEVEL 7-10 Last administered on 01/13/17 08:18; Admin Dose 3 MG; Start 01/09/17 at 15:30 Pantoprazole (Protonix Iv) 40 mg BID@,18 IV Last administered on 01/13/17 05 :26; Admin Dose 40 MG; Start 01/11/17 at 18:00 Medroxyprogesterone Acetate (Provera) 10 mg DAILY PO Last administered on 08:21; Admin Dose 10 MG; Start 01/12/17 at 09:00 ANU CORONA NP Jan 13, 2017 09:39
[2017-01-13] MEDS: ONDANSETRON 4 MG INJ IV PRN (10:35)
--- NOTE | 2017-01-13 12:36 | PN ---
Date/Time of Note Date/Time of Note DATE: 01/13/17 TIME: 12:33 Assessment/Plan VTE Prophylaxis VTE Prophylaxis Intervention: SCD's Lines/Catheters IV [facility] Peripheral IV Urinary Cath still in place: No Assessment/Plan Chief Complaint/Hosp Course 46-year-old female presenting with abdominal pain for 3 days with prior history of fibroids and ovarian cyst. 1. Abdominal pain: Likely secondary to patient's fibroids vs GI abnormality, also possibly secondary to ovarian cyst. Interestingly, pelvic ultrasound performed 5 days ago does not demonstrate any fibroids. Appreciate AIR BOX TESTER consult. Patient has chronic menometrorrhagia, and chronic iron deficiency anemia secondary to menometrorrhagia, with multiple blood transfusion as well as iron infusion, and is status post endometrial biopsy 7 months ago that was benign. -Continue pain control medications, IV fluids. Follow-up AIR BOX TESTER consult recommendations, recommending either start Provera, or consider hysterectomy -Per discussion with gynecological oncology team, patient is tentatively scheduled for hysterectomy in 24 hours. -Per GI, continue PPI twice daily given her esophagitis and shallow antral ulcer findings on EGD this admission. 2. GI prophylaxis: PPI twice daily 3. DVT prophylaxis: SCDs Problems: Subjective 24 Hr Interval Summary Free Text/Dictation No acute events overnight, presently getting GoLYTELY. Still with some mild vaginal bleeding. Exam/Review of Systems Vital Signs Vitals Vital Signs Date Time Temp Pulse Resp B/P Pulse Ox O2 Delivery O2 Flow Rate FiO2 01/13/17 09:03 98.0 76 18 117/52 95 01/11/17 12:44 Room Air Intake and Output 01/12/17 01/12/17 01/13/17 14:59 22:59 06:59 Intake Total 2070 ml 820 ml Balance 2070 ml 820 ml Exam General: Lying in bed, alert, no acute distress Neck: Supple HEENT: Pupils equal round reactive to light extraocular muscles are intact Respiratory: Clear to auscultation bilaterally Cardiovascular: S1-S2 heard no rubs or gallops GI: Tenderness to palpation, otherwise soft, no rebound or guarding Muscular skeletal: No lower extremity edema bilaterally Neurologic: No focal deficits Results Result Diagram: 01/13/17 0450 01/13/17 0450 Results 24 hrs Laboratory Tests Test 01/12/17 15:04 01/13/17 04:50 Troponin I < 0.012 White Blood Count 8.3 Red Blood Count 4.50 Hemoglobin 9.6 L Hematocrit 32.8 L Mean Corpuscular Volume 72.9 L Mean Corpuscular Hemoglobin 21.3 L Mean Corpuscular Hemoglobin Concent 29.3 L Red Cell Distribution Width 19.5 H Platelet Count 253 Mean Platelet Volume 10.4 Neutrophils % 63.6 Lymphocytes % 28.6 Monocytes % 5.5 Eosinophils % 1.6 Basophils % 0.1 Nucleated Red Blood Cells % 0.0 Neutrophils # 5.3 Lymphocytes # 2.4 Monocytes # 0.5 Eosinophils # 0.1 Basophils # 0.0 Nucleated Red Blood Cells # 0.0 Prothrombin Time 13.0 Prothrombin Time Ratio 1.0 INR International Normalized Ratio 0.98 Sodium Level 145 H Potassium Level 4.5 Chloride Level 102 Carbon Dioxide Level 32 H Anion Gap 16 Blood Urea Nitrogen 9 Creatinine 0.90 Glucose Level 104 Calcium Level 8.8 Medications Medications Current Medications Miscellaneous Information Patients own medicat... BID@ XX ; Start 01/08/17 at 16:00 Morphine Sulfate (morphine) 1 mg Q3H PRN IV pain Last administered on 04:49; Admin Dose 1 MG; Start 01/08/17 at 16:00 Ondansetron HCl (Zofran Inj) 4 mg Q6H PRN IV NAUSEA AND/OR VOMITING Last administered on 01/13/17 10:35; Admin Dose 4 MG; Start 01/08/17 at 16:30 Ondansetron HCl (Zofran Inj) 4 mg Q6H PRN IV NAUSEA AND/OR VOMITING; Start at 19:30 Acetaminophen (Tylenol Tab) 650 mg Q6H PRN PO PAIN LEVEL 1-3 OR FEVER; Start at 19:30 Acetaminophen/ Hydrocodone Bitart ([place] (5/325)) 1 tab Q6H PRN PO MODERATE PAIN LEVEL 4-6 Last administered on 01/13/17 09:34; Admin Dose 1 TAB; Start at 19:30 Docusate Sodium (Colace) 100 mg Q12H PRN PO CONSTIPATION; Start 01/08/17 at 19: 30 Magnesium Hydroxide (Milk Of Mag) 30 ml DAILY PRN PO CONSTIPATION; Start at 19:30 Sodium Biphosphate/ Sodium Phosphate 133 ml 133 ml DAILY PRN [place] CONSTIPATION; Start 01/08/17 at 19:30 Sodium Chloride (1/2 NS) 1,000 ml @ 75 mls/hr [id number] IV Last administered on 01/12/17 22:04; Admin Dose 75 MLS/HR; Start 01/08/17 at 19:02 Lorazepam (Ativan) 0.5 mg Q6H PRN IV ANXIETY Last administered on 01/12/17 23: 22; Admin Dose 0.5 MG; Start 01/08/17 at 19:30 Hydralazine HCl (Apresoline) 10 mg Q6H PRN IV ELEVATED BLOOD PRESSURE; Start at 19:30 Nitroglycerin (Nitroglycerin (Sl Tab) 0.4 Mg) 1 tab Q5M PRN SL ANGINA; Start at 19:30 Morphine Sulfate (morphine) 3 mg Q4H PRN IV SEVERE PAIN LEVEL 7-10 Last administered on 01/13/17 08:18; Admin Dose 3 MG; Start 01/09/17 at 15:30 Pantoprazole (Protonix Iv) 40 mg BID@06,18 IV Last administered on 01/13/17 05 :26; Admin Dose 40 MG; Start 01/11/17 at 18:00 Medroxyprogesterone Acetate (Provera) 10 mg DAILY PO Last administered on 08:21; Admin Dose 10 MG; Start 01/12/17 at 09:00 SARAH HAYNES Jan 13, 2017 12:36
[2017-01-13] MEDS: LORAZEPAM 2 MG INJ IV PRN (15:14)
[2017-01-13 15:43] VITALS: BP 115/60; RESP 18
[2017-01-13] MEDS: SOD CHLORIDE 0.45% 1,000 ML IV SCH (17:53)
[2017-01-13 20:00] VITALS: BP 117/56; RESP 18
[2017-01-14] VITALS (24 sets, daily range): BP systolic 104–177; BP diastolic 59–80; PULSE 64–90; RESP 13–22
[2017-01-14] MEDS: morphine 2 MG INJ IV PRN ×3 (02:42→12:04)
[2017-01-14] MEDS: LORAZEPAM 2 MG INJ IV PRN ×2 (04:20→20:04)
[2017-01-14 05:58] LABS: BASOPHILS % 0.3 % (0.0-2.0); EOSINOPHILS # 0.1 10^3/ul (0.0-0.5); HEMATOCRIT 33.4 % (37.0-47.0); HEMOGLOBIN 9.7 g/dl (12.0-16.0); LYMPHOCYTES # 2.2 10^3/ul (0.8-2.9); LYMPHOCYTES % 21.8 % (15.0-51.0); MEAN CORPUSCULAR HEMOGLOBIN 20.7 pg (29.0-33.0); MEAN CORPUSCULAR VOLUME 71.4 fl (82.0-101.0); MONOCYTE # 0.5 10^3/ul (0.3-0.9); MONOCYTES % 5.2 % (0.0-11.0); NEUTROPHIL # 7.3 10^3/ul (1.6-7.5); NEUTROPHILS % 71.1 % (39.0-77.0); PLATELET COUNT 269 10^3/UL (140-415); RED BLOOD COUNT 4.68 10^6/ul (4.20-5.40); RED CELL DISTRIBUTION WIDTH 19.9 % (11.5-14.5); WHITE BLOOD COUNT 10.2 10^3/ul (4.8-10.8)
[2017-01-14] MEDS: PANTOPRAZOLE 40 MG INJ IV SCH (05:59)
[2017-01-14 06:44] LABS: CALCIUM 9.1 mg/dl (8.4-10.2); CREATININE 0.78 mg/dl (0.44-1.00); POTASSIUM 4.1 mmol/L (3.5-5.1)
[2017-01-14] MEDS: ONDANSETRON 4 MG INJ IV PRN (06:47)
[2017-01-14] MEDS ORDERED: METHYLENE BLUE 1% 10 ML INJ ONE (07:06)
[2017-01-14] MEDS ORDERED: VASOPRESSIN 20 UNITS INJ ONE (07:06)
[2017-01-14] MEDS ORDERED: THROMBIN 5000 UNIT VIAL ONE (07:06)
[2017-01-14] MEDS ORDERED: ROCURONIUM 50 MG INJ ONE (07:17)
[2017-01-14] MEDS ORDERED: SUCCINYLCHOLINE CHLORIDE 100 MG/5 ML SYG IV ONE (07:17)
[2017-01-14] MEDS ORDERED: PROPOFOL 20 ML ONE (07:17)
[2017-01-14] MEDS ORDERED: FENTAnyl 50 MCG/ML VIAL ONE (07:17)
[2017-01-14] MEDS ORDERED: ONDANSETRON 4 MG INJ ONE (07:17)
[2017-01-14] MEDS ORDERED: CEFAZOLIN 1 GM INJ ONE (07:18)
[2017-01-14] MEDS ORDERED: METOCLOPRAMIDE 10 MG INJ ONE (07:18)
[2017-01-14] MEDS ORDERED: MIDAZOLAM 1 MG/ML 2 ML INJ ONE (07:19)
[2017-01-14] MEDS ORDERED: LIDOCAINE 2%/EPI 30 ML INJ ONE (07:19)
[2017-01-14] MEDS ORDERED: metroNIDAZOLE 500 MG/NS (PMX) 100 ML IVPB SCH (08:30)
[2017-01-14] MEDS ORDERED: DIPHENHYDRAMINE 25 MG CAP PO PRN (08:30)
[2017-01-14] MEDS: CEFAZOLIN 1 GM/50 ML (PMX) 50 ML IVPB SCH ×2 (08:30→18:15)
[2017-01-14] MEDS ORDERED: CEFAZOLIN 1 GM in SOD CHLORIDE 0.9% 100 ML IVPB SCH (08:30)
[2017-01-14] MEDS: MEDROXYPROGESTERONE 10 MG TAB PO SCH (08:54)
[2017-01-14] MEDS ORDERED: HEMOSTATIC MATRIX/ THROMBIN 1 EA SYG ZFS ONE (09:33)
--- NOTE | 2017-01-14 09:49 | PN ---
Date/Time of Note Date/Time of Note DATE: 01/14/17 TIME: 09:43 Assessment/Plan VTE Prophylaxis VTE Prophylaxis Intervention: ambulation, SCD's Lines/Catheters IV Catheter Type (from Nrsg): Peripheral IV Urinary Cath still in place: No Assessment/Plan Chief Complaint/Hosp Course 1. Abdominal/Pelvic pain, multifactorial secondary to probable adenomyosis/ possible endometriosis/ esophagitis/gastric ulcers. -Status post laparoscopic hysterectomy with left salpingo-oophorectomy and right salpingectomy. -Postoperative course per UTILIZATION ENGINEER team -Continue pain control 2. Chronic menometrorrhagia -Treatment as above. 3.Esophagitis/Gastric ulcer -Status post EGD-F/u H-Pylori reports -Continue PPI-Will also add Carafate -GI eval appreciated. 3. Chronic iron deficiency anemia secondary to menometrorrhagia. HH stable. -Continue to monitor. -Obtain iron panel and treat accordingly. 4. Anxiety. -Continue Ativan PRN GI prophylaxis: PPI twice daily DVT prophylaxis: SCDs Plan: Postoperative management per surgery. Encourage incentive spirometry Case discussed with Dr. Hunter. Problems: Subjective 24 Hr Interval Summary Free Text/Dictation Patient is status post Lap hysterectomy. Using incentive spirometry. Having pain and anxiety Exam/Review of Systems Vital Signs Vitals Vital Signs Date Time Temp Pulse Resp B/P Pulse Ox O2 Delivery O2 Flow Rate FiO2 01/14/17 02:45 98.6 01/14/17 02:00 81 20 126/59 20 01/11/17 12:44 Room Air Intake and Output 01/13/17 01/13/17 01/14/17 14:59 22:59 06:59 Intake Total 3200 ml 770 ml Balance 3200 ml 770 ml Exam General: Morbidly obese female, not in any acute distress . HEENT: Normocephalic, Atraumatic, No laceration or hematoma; Eyes: PEERL, Conjunctiva clear, Anicteric sclera Neck: Supple without any lymphadenopathy, nontender, no JVD, no carotid bruits, trachea midline, no thyromegaly Cardiac: S1, S2 auscultated, regular rhythm and rate, no mumurs or gallop Pulmonary: Normal respiratory effort. Chest clear to auscultation bilaterally, no adventitious breath sounds GI: Lap incisions intact. Abdomen obese to inspection. Soft, non tender, non- distended, no masses, no rebound tenderness or guarding. Bowel sounds active on all four quadrants Genitourinary: Deferred Extremities: No cyanosis, clubbing, or edema. Pulses [2+] bilaterally. Full ROM on all four extremities. No focal weakness appreciated. Neurologic: Alert to person, place, time, and situation. Affect appropriate, intact sensation. Skin: Clean,dry, and intact. No ecchymosis, no rashes, or lesions Results Result Diagram: 01/14/1738 01/14/17 0538 Results 24 hrs Laboratory Tests Test 01/14/17 05:38 White Blood Count 10.2 # Red Blood Count 4.68 Hemoglobin 9.7 L Hematocrit 33.4 L Mean Corpuscular Volume 71.4 L Mean Corpuscular Hemoglobin 20.7 L Mean Corpuscular Hemoglobin Concent 29.0 L Red Cell Distribution Width 19.9 H Platelet Count 269 Mean Platelet Volume 10.0 Neutrophils % 71.1 Lymphocytes % 21.8 Monocytes % 5.2 Eosinophils % 1.0 Basophils % 0.3 Nucleated Red Blood Cells % 0.0 Neutrophils # 7.3 Lymphocytes # 2.2 Monocytes # 0.5 Eosinophils # 0.1 Basophils # 0.0 Nucleated Red Blood Cells # 0.0 Sodium Level 141 Potassium Level 4.1 Chloride Level 96 L Carbon Dioxide Level 29 Anion Gap 20 H Blood Urea Nitrogen 7 Creatinine 0.78 Glucose Level 101 Calcium Level 9.1 Medications Medications Current Medications Miscellaneous Information Patients own medicat... BID@10,16 XX ; Start 01/08/17 at 16:00 Morphine Sulfate (morphine) 1 mg Q3H PRN IV pain Last administered on t 04:49; Admin Dose 1 MG; Start 01/08/17 at 16:00 Acetaminophen (Tylenol Tab) 650 mg Q6H PRN PO PAIN LEVEL 1-3 OR FEVER; Start at 19:30 Docusate Sodium (Colace) 100 mg Q12H PRN PO CONSTIPATION; Start 01/08/17 at 19: 30 Magnesium Hydroxide (Milk Of Mag) 30 ml DAILY PRN PO CONSTIPATION; Start at 19:30 Sodium Biphosphate/ Sodium Phosphate (Fleet Enema) 133 ml DAILY PRN [place] CONSTIPATION; Start 01/08/17 at 19:30 Lorazepam (Ativan) 0.5 mg Q6H PRN IV ANXIETY Last administered on 01/14/17 04: 20; Admin Dose 0.5 MG; Start 01/08/17 at 19:30 Hydralazine HCl (Apresoline) 10 mg Q6H PRN IV ELEVATED BLOOD PRESSURE; Start at 19:30 Nitroglycerin (Nitroglycerin (Sl Tab) 0.4 Mg) 1 tab Q5M PRN SL ANGINA; Start at 19:30 Medroxyprogesterone Acetate 10 mg 10 mg DAILY PO Last administered on 08:21; Admin Dose 10 MG; Start 01/12/17 at 09:00 Metronidazole (Flagyl 500 Mg (Pmx)) 100 ml @ 100 mls/hr Q8H IVPB ; Start at 08:30; Stop 01/15/17 at 08:29 Morphine Sulfate (morphine) 2 mg Q2H PRN IV PAIN LEVEL 6-10; Start 01/14/17 at 08:30 Acetaminophen/ Hydrocodone Bitart ([place] (5/325)) 1 tab Q6H PRN PO PAIN LEVEL 6 -10; Start 01/14/17 at 08:30 Diphenhydramine HCl (Benadryl) 25 mg Q6H PRN PO ITCHING; Start 01/14/17 at 08: 30 Ondansetron HCl (Zofran Inj) 4 mg Q6H PRN IV NAUSEA AND/OR VOMITING; Start at 08:30 Pantoprazole 40 mg 40 mg DAILY@06 IV ; Start 01/15/17 at 06:00 Potassium Chloride 20 meq/ Lactated Ringer's 1,000 ml @ 100 mls/hr Q10H IV ; Start 01/14/17 at 10:00 Cefazolin Sodium (Ancef 1 Gm/50 ml (Pmx)) 50 ml @ 100 mls/hr Q8H IVPB ; Start 01/14/17 at 09:00; Stop 01/15/17 at 08:29 TASHA COTA NP Jan 14, 2017 09:49
[2017-01-14] MEDS ORDERED: MEPERIDINE 25 MG INJ IV PRN (10:00)
[2017-01-14] MEDS ORDERED: HYDROmorphONE (0.2 MG/ML) 10ML SYG IV PRN ×2 (10:00)
[2017-01-14] MEDS ORDERED: ONDANSETRON 4 MG INJ IV PRN ×2 (10:00→11:00)
[2017-01-14 10:05] LABS: IRON 52 ug/dl (35-150)
[2017-01-14 10:14] LABS: TOTAL IRON BINDING CAPACITY 409 ug/dl (241-421)
[2017-01-14] MEDS ORDERED: morphine SULFATE/PF (10 MG/10 ML) INJ ONE (10:40)
[2017-01-14] MEDS ORDERED: NALOXONE (0.4 MG/ML) INJ IV PRN (11:00)
[2017-01-14] MEDS ORDERED: HYDROmorphONE 1 MG/ML SYG IV PRN ×2 (11:00)
[2017-01-14] MEDS ORDERED: DIPHENHYDRAMINE 50 MG INJ IV PRN (11:00)
[2017-01-14] MEDS ORDERED: ATROPINE 1 MG/10 ML SYRINGE ONE (11:26)
[2017-01-14] MEDS ORDERED: NEOSTIGMINE 3 MG/3 ML SYRINGE ONE (11:26)
[2017-01-14] MEDS: HYDROmorphONE (0.2 MG/ML) 10ML SYG IV PRN ×6 (12:00→16:06)
--- NOTE | 2017-01-14 12:13 | OPR ---
Date/Time of Note Date/Time of Note DATE: 01/14/17 TIME: 12:12 Operative Report Free Text/Dictation OPERATIVE REPORT [facility] Name: Osorio Singh Medical Date: 01/14/17 Preoperative Diagnosis: 1-Menorrhagia and intermenstrual bleeding 2-Chronic pelvic pain 3-Morbid obesity Postoperative Diagnosis: 1- Same with pathology pending 2- Right hydrosalpinx 3- Complex left adnexal mass 4- Pelvic adhesions 5- Ureteral stricture Procedures: 1- Total laparoscopic hysterectomy with left salpingoophorectomy and right salpingectomy 2- Bilateral ureteral dissection with repositioning 3- Retroperitoneal uterine artery ligation adjacent to hypogastric artery Surgeon: Dr. Barnett Electric Mule Operator: ROXY Mercer Anaesthesia: General with regional Indications for Procedure: This 46 year old patient had persistent intermenstrual bleeding and menorrhagia with a normal EMB, morbid obesity and multiple medical issues. After discussions of options with risks and benefits it was determined that a laparoscopic hysterectomy with possible bilateral salpingoophorectomy and possible Name: Osorio Singh Medical staging for the purposes of treatment and possibly planning additional adjuvant therapy. Intraoperative Findings and Summary of Procedure: After placing the Trocars and exploration we noted adhesions with an enlarged uterus with hypervascularity with significant adhesions of the adnexia to the sidewalls and uterus to bladder and anterior abdomen and a right hydrosalpinx and left hydrosalpinx and small complex cystic mass. The TLH/LSO/RS was then performed without incident but required a ureteral dissection due to anatomic issues of the adnexia adherent to the sidewalls and uterine enlargement due to adhesions with retroperitoneal uterine artery ligation adjacent to hypogastric artery for required hemostasis. Findings and Procedure: After being prepped and draped in the usual manner an EEA sizer with balloon was placed. A 5-millimeter trocar was then placed cephlad to the umbilicus without incident. Subsequently, we insufflated and placed two 5-millimeter trocars laterally and a 12 millimeter trocar suprapubically. At this time omental adhesions were lysed with the Thunderbeat and Omni and with visualization multiple pelvic adhesions were lysed with sharp dissection and the Omni if not adjacent to serosa. Subsequently we explored and noted an enlarged uterus with hypervascularity with significant adhesions of the adnexia to the sidewalls and uterus to bladder and anterior abdomen and a right hydrosalpinx and left hydrosalpinx and small complex cystic mass. Initially the right round ligament was cauterized and transected with the Thunderbeat and the retroperitoneal space further opened parallel to the IP ligament an laterally with the same devise. The right ureter was identified and due to the aforementioned distortion from adherent adnexia was dissected and lateralized with the Omni and the endo-dissector. After lateralizing the ureter the uterine artery was identified and clipped adjacent to the hypogastric artery due to the uterine enlargement and hypervascularity lateral to the ureter. Hence, the right fallopian tube was removed with the Thunderbeat Name: Osorio [facility] and a space was developed the broad ligament and the right triple pedicle was cauterized and transected with a Thunderbeat after which the uterus was retracted medially and the bladder flap was partly developed with the Gyrus bipolar cutting forceps and the Omni although this was limited due to the extent of dense scar tissue. We then used a 10-mm ratcheted endo-grasper placed through the 12-mm suprapubic trocar to manipulate the uterus and with the EEA sizer the uterus was retracted and left round ligament was cauterized and transected with the Thunderbeat and the retroperitoneal space further opened parallel to the IP ligament an laterally with the same devise. The left ureter was identified and due to the aforementioned distortion was dissected laterally with the Omni and the endo-dissector as done contralaterally. After lateralizing the ureter the uterine artery was identified and clipped adjacent to the hypogastric artery due to the uterine enlargement and hypervascularity lateral to the ureter. Hence, a space was developed in the broad ligament and the left IP ligament was cauterized and transected with a Thunderbeat after which the uterus was retracted medially, allowing development or the bladder flap uneventfully with a Thunderbeat and blunt dissection. Subsequently, the right uterine artery was transected with a Thunderbeat perpendicular to the distal lower uterine segment and the Cardinal ligament and utero-sacral ligament were both transected with an Omni and Thunderbeat parallel to the lower uterine segment and cervix. An identical series of steps were taken on the left side. Due to dense bladder adhesions and anesthesia being difficult for the patient to tolerate, and a TLH being adequate, the uterus was from the cervix with the Thunderbeat and ablated with the argon beam administrative receptionist. The 12-millimeter trocar site was minimally extended to 4-cm midline to a minilaparotomy with sharp dissection and an electrocautery and uterus was then removed in a pouch and the adnexia removed intact with the right tube, with all tissue accounted for.The incision was partly closed with interrupted 0- Vicryl suture, after which the 12-millimeter trocar was reinserted. The vagina was closed with interrupted 2-0 Vicryl suture and continuous 2-0 v-lock suture. At this time the frozen section returned no invasion and after irrigating and assuring hemostasis the 12-millimeter trocar was removed and the Name: Osorio [facility] fascia was closed with 0-vicryl using an endo-close devise. The gas was removed and the skin of all sites then closed with subcutaneous 5-0 Monocryl suture. The EBL was 100cc and the patient tolerated the procedure well and left the OR in good condition. Demetra Barnett M.D. DEMETRA BARNETT MD Jan 14, 2017 12:13
--- NOTE | 2017-01-14 12:14 | HPN ---
Date/Time of Note Date/Time of Note DATE: 01/14/17 TIME: 12:14 Interval H&P Admission Note Pt. seen H&P reviewed: No system changes DEMETRA JARQUIN MD Jan 14, 2017 12:14
[2017-01-14] MEDS: metroNIDAZOLE 500 MG/NS (PMX) 100 ML IVPB SCH ×2 (12:37→21:00)
[2017-01-14 12:52] LABS: BASOPHILS % 0.2 % (0.0-2.0); EOSINOPHILS % 0.1 % (0.0-7.0); HEMATOCRIT 32.3 % (37.0-47.0); HEMOGLOBIN 9.6 g/dl (12.0-16.0); LYMPHOCYTES # 0.7 10^3/ul (0.8-2.9); LYMPHOCYTES % 3.7 % (15.0-51.0); MEAN CORPUSCULAR HEMOGLOBIN 21.6 pg (29.0-33.0); MEAN CORPUSCULAR HGB CONC 29.7 g/dl (32.0-37.0); MEAN CORPUSCULAR VOLUME 72.7 fl (82.0-101.0); MEAN PLATELET VOLUME 10.1 fl (7.4-10.4); MONOCYTE # 0.5 10^3/ul (0.3-0.9); MONOCYTES % 2.7 % (0.0-11.0); NEUTROPHIL # 16.9 10^3/ul (1.6-7.5); NEUTROPHILS % 92.7 % (39.0-77.0); PLATELET COUNT 269 10^3/UL (140-415); RED BLOOD COUNT 4.44 10^6/ul (4.20-5.40); RED CELL DISTRIBUTION WIDTH 19.7 % (11.5-14.5); WHITE BLOOD COUNT 18.2 10^3/ul (4.8-10.8)
[2017-01-14 13:20] LABS: CALCIUM 8.6 mg/dl (8.4-10.2); CREATININE 0.73 mg/dl (0.44-1.00); POTASSIUM 4.3 mmol/L (3.5-5.1)
[2017-01-14] MEDS: HYDROmorphONE 1 MG/ML SYG IV PRN ×2 (14:04→18:33)
[2017-01-14] MEDS: SUCRALFATE 1 GM TAB PO SCH ×3 (14:13→21:00)
[2017-01-14] MEDS: POTASSIUM CHLORIDE 20 MEQ in LACTATED RINGER'S 990 ML IV SCH ×2 (15:48→20:00)
--- NOTE | 2017-01-14 15:49 | RADRPT ---
Vent Rate: 78 bpm RR Interval: 0 msec ID Interval: 122 msec QRS Duration: 86 msec QT Interval: 380 msec QTC Interval: 433 msec P-R-T [place]: 11 - 3 - 39 degrees Normal sinus rhythm Normal ECG Electronically Signed By: Blair Call [phone]
[2017-01-14] MEDS ORDERED: DOCUSATE SODIUM 100 MG CAP PO PRN (17:30)
[2017-01-14] MEDS: FERROUS SULFATE (EC) 325 MG TAB PO SCH (21:00)
[2017-01-14] MEDS: GEMFIBROZIL 600 MG TAB PO SCH (21:00)
[2017-01-15] MEDS: CEFAZOLIN 1 GM/50 ML (PMX) 50 ML IVPB SCH (01:41)
[2017-01-15 02:00] VITALS: BP 113/55; RESP 20
[2017-01-15] MEDS: HYDROCODONE/APAP (5/325) TAB PO PRN ×2 (02:10→12:54)
[2017-01-15] MEDS: LORAZEPAM 2 MG INJ IV PRN ×2 (03:30→19:52)
[2017-01-15] MEDS: POTASSIUM CHLORIDE 20 MEQ in LACTATED RINGER'S 990 ML IV SCH ×3 (04:22→20:00)
[2017-01-15] MEDS: PANTOPRAZOLE 40 MG INJ IV SCH (05:21)
[2017-01-15] MEDS: metroNIDAZOLE 500 MG/NS (PMX) 100 ML IVPB SCH (05:21)
[2017-01-15 05:35] LABS: ABNORMAL IP MESSAGE 1; BASOPHILS % 0.2 % (0.0-2.0); EOSINOPHILS % 0.3 % (0.0-7.0); HEMATOCRIT 31.1 % (37.0-47.0); LYMPHOCYTES # 1.3 10^3/ul (0.8-2.9); LYMPHOCYTES % 12.3 % (15.0-51.0); MEAN CORPUSCULAR HEMOGLOBIN 21.2 pg (29.0-33.0); MEAN CORPUSCULAR HGB CONC 28.9 g/dl (32.0-37.0); MEAN CORPUSCULAR VOLUME 73.3 fl (82.0-101.0); MEAN PLATELET VOLUME 9.7 fl (7.4-10.4); MONOCYTE # 0.6 10^3/ul (0.3-0.9); MONOCYTES % 6.1 % (0.0-11.0); NEUTROPHIL # 8.2 10^3/ul (1.6-7.5); NEUTROPHILS % 80.6 % (39.0-77.0); PLATELET COUNT 233 10^3/UL (140-415); RED BLOOD COUNT 4.24 10^6/ul (4.20-5.40); RED CELL DISTRIBUTION WIDTH 19.8 % (11.5-14.5); WHITE BLOOD COUNT 10.2 10^3/ul (4.8-10.8)
[2017-01-15 05:38] LABS: POSITIVE DIFF @See below
[2017-01-15 05:53] LABS: INR 1.11; PROTIME 14.3 Sec (12.2-14.2); PT RATIO 1.1
[2017-01-15] MEDS: HYDROmorphONE 1 MG/ML SYG IV PRN ×3 (06:19→10:33)
[2017-01-15 06:47] LABS: CALCIUM 8.4 mg/dl (8.4-10.2); CREATININE 0.89 mg/dl (0.44-1.00)
[2017-01-15] MEDS: ONDANSETRON 4 MG INJ IV PRN ×2 (07:24→22:14)
[2017-01-15 07:29] VITALS: BP 97/45; RESP 22
[2017-01-15 08:07] VITALS: BP 143/66; PULSE 95
[2017-01-15] MEDS: SUCRALFATE 1 GM TAB PO SCH ×4 (09:19→20:31)
[2017-01-15] MEDS: SPIRONOLACTONE 25 MG TAB PO SCH (09:19)
[2017-01-15] MEDS: FERROUS SULFATE (EC) 325 MG TAB PO SCH (09:19)
[2017-01-15] MEDS: MEDROXYPROGESTERONE 10 MG TAB PO SCH (09:20)
[2017-01-15] MEDS: ATENOLOL 50 MG TAB PO SCH (09:20)
[2017-01-15] MEDS: GEMFIBROZIL 600 MG TAB PO SCH ×2 (09:21→20:31)
--- NOTE | 2017-01-15 09:24 | GILP ---
DATE OF PROCEDURE: PROCEDURE: Esophagogastroduodenoscopy with biopsies. HISTORY AND INDICATIONS: Patient is being evaluated for abdominal pain. PREMEDICATION: Monitored anesthesia care by anesthesiologist. TECHNIQUE: After informed consent, with the patient/relatives understanding the procedure, its indications, potential risks and complications, including but not limited to: allergic reaction, bleeding, perforation or infection, and after all pertinent questions were answered to the patients satisfaction, the patient/relatives signed witnessed informed consent. Following this, premedication was administered slowly IV push under careful cardiovascular and respiratory monitoring with pulse oximetry, automatic blood pressure and nurse monitoring. Once the sedative effect was achieved the patient was place in the left lateral decubitus, the panendoscope was introduced and advanced under visual control. Careful examination of the upper gastrointestinal tract, both on insertion as well as withdrawal of the instrument disclosed the following findings: Esophagus: The distal shows erythema and edema of mucosa of a moderate degree. Stomach: Upon entrance to the stomach air was insufflated, the gastric dixon distended normally. The mucosa of the fundus, body and antrum of the stomach was carefully examined. There is erythema and edema, as well as multiple shallow antral ulcerations ranging in size from 3-6 mm in the antrum of the stomach. No stigmata of recent bleeding is present. The ulcers have a benign endoscopic appearance. Pylorus: The pylorus appears patent and within normal limits, with no evidence of gastric outlet obstruction. Duodenum: The duodenal mucosa was carefully examined in the duodenal bulb as well as the second portion of the duodenum and appears unremarkable with no evidence of duodenitis, ulcer or neoplasm. The instrument was then withdrawn, the patient tolerated the procedure well and was transfer out of the endoscopy suite awake, and in good condition to continue recovery under observation. IMPRESSION: 1. Distal esophagitis, moderate. 2. Severe gastritis with multiple shallow antral gastric ulcerations with no stigmata of recent bleeding and benign endoscopic appearance. Rule out Helicobacter pylori infection, biopsy obtained. RECOMMENDATIONS: The patient will be treated with PPI b.i.d., i.e., Protonix 40 mg b.i.d. Further recommendations will be dependent on patient's clinical course as well as review of biopsies. Dictated By: Hellen Marques MD /fanta/leigh /Document#: [id number] CC: Hellen Marques MD;*[facility]*
--- NOTE | 2017-01-15 10:23 | PN ---
Date/Time of Note Date/Time of Note DATE: 01/15/17 TIME: 10:18 Assessment/Plan VTE Prophylaxis VTE Prophylaxis Intervention: SCD's Lines/Catheters IV Catheter Type (from Nrsg): Peripheral IV Urinary Cath still in place: Yes Reason Cath still needed: urinary retention Assessment/Plan Chief Complaint/Hosp Course Adenomyosis, left adnexal mass, hydrosalpinx Problems: Assessment/Plan A- doing reasonably P- re-evaluate later and adv to full liq diet and decrease IV. d/c FeSO4 to avoid constipation. Ambulate. Subjective 24 Hr Interval Summary Free Text/Dictation No flatus yet and some pain but controlled. No bleeding. Exam/Review of Systems Vital Signs Vitals Vital Signs Date Time Temp Pulse Resp B/P Pulse Ox O2 Delivery O2 Flow Rate FiO2 01/15/17 08:07 95 143/66 97 Nasal Cannula 1.0 01/15/17 07:29 98.8 22 01/15/17 05:20 28 Intake and Output 01/14/17 01/14/17 01/15/17 15:00 23:00 07:00 Intake Total 1600 ml 1515 ml 1575 ml Output Total 700 ml 650 ml 1000 ml Balance 900 ml 865 ml 575 ml Results Result Diagram: 01/15/17 0509 01/15/17 0509 Results 24 hrs Laboratory Tests Test 01/14/17 12:37 01/15/17 05:09 01/15/17 06:23 White Blood Count 18.2 #H 10.2 # Red Blood Count 4.44 4.24 Hemoglobin 9.6 L 9.0 L Hematocrit 32.3 L 31.1 L Mean Corpuscular Volume 72.7 L 73.3 L Mean Corpuscular Hemoglobin 21.6 L 21.2 L Mean Corpuscular Hemoglobin Concent 29.7 L 28.9 L Red Cell Distribution Width 19.7 H 19.8 H Platelet Count 269 233 Mean Platelet Volume 10.1 9.7 Neutrophils % 92.7 H 80.6 H Lymphocytes % 3.7 L 12.3 L Monocytes % 2.7 6.1 Eosinophils % 0.1 0.3 Basophils % 0.2 0.2 Nucleated Red Blood Cells % 0.0 0.0 Neutrophils # 16.9 H 8.2 H Lymphocytes # 0.7 L 1.3 Monocytes # 0.5 0.6 Eosinophils # 0.0 0.0 Basophils # 0.0 0.0 Nucleated Red Blood Cells # 0.0 0.0 Sodium Level 141 141 Potassium Level 4.3 4.0 Chloride Level 99 101 Carbon Dioxide Level 28 30 Anion Gap 18 H 14 Blood Urea Nitrogen 6 L 5 L Creatinine 0.73 0.89 Glucose Level 138 113 Calcium Level 8.6 8.4 Prothrombin Time 14.3 H Prothrombin Time Ratio 1.1 INR International Normalized Ratio 1.11 Magnesium Level 1.6 L Lab Scanned Report LAB Medications Medications Current Medications Miscellaneous Information Patients own medicat... BID@ XX ; Start 01/08/17 at 16:00 Morphine Sulfate (morphine) 1 mg Q3H PRN IV pain Last administered on 04:49; Admin Dose 1 MG; Start 01/08/17 at 16:00 Acetaminophen (Tylenol Tab) 650 mg Q6H PRN PO PAIN LEVEL 1-3 OR FEVER; Start at 19:30 Docusate Sodium (Colace) 100 mg Q12H PRN PO CONSTIPATION; Start 01/08/17 at 19: 30 Magnesium Hydroxide (Milk Of Mag) 30 ml DAILY PRN PO CONSTIPATION; Start at 19:30 Sodium Biphosphate/ Sodium Phosphate (Fleet Enema) 133 ml DAILY PRN [place] CONSTIPATION; Start 01/08/17 at 19:30 Hydralazine HCl (Apresoline) 10 mg Q6H PRN IV ELEVATED BLOOD PRESSURE; Start at 19:30 Nitroglycerin (Nitroglycerin (Sl Tab) 0.4 Mg) 1 tab Q5M PRN SL ANGINA; Start at 19:30 Morphine Sulfate (morphine) 2 mg Q2H PRN IV PAIN LEVEL 6-10 Last administered on 01/14/17 12:04; Admin Dose 2 MG; Start 01/14/17 at 08:30 Acetaminophen/ Hydrocodone Bitart ([place] (5/325)) 1 tab Q6H PRN PO PAIN LEVEL 6 -10 Last administered on 01/15/17 02:10; Admin Dose 1 TAB; Start 01/14/17 at 08 :30 Diphenhydramine HCl (Benadryl) 25 mg Q6H PRN PO ITCHING; Start 01/14/17 at 08: 30 Ondansetron HCl (Zofran Inj) 4 mg Q6H PRN IV NAUSEA AND/OR VOMITING Last administered on 01/15/17 07:24; Admin Dose 4 MG; Start 01/14/17 at 08:30 Pantoprazole 40 mg 40 mg DAILY@06 IV Last administered on 01/15/17 05:21; Admin Dose 40 MG; Start 01/15/17 at 06:00 Potassium Chloride/Lactated Ringer's (KCl/Lr) 1,000 ml @ 60 mls/hr [id number] IV Last administered on 01/15/17 04:22; Admin Dose 100 MLS/HR; Start 01/14/17 at 10:00 Sucralfate (Carafate) 1 gm QID PO Last administered on 01/15/17 09:19; Admin Dose 1 GM; Start 01/14/17 at 13:00 Hydromorphone HCl (Dilaudid) 0.2 mg Q30MIN PRN IV BREAKTHROUGH PAIN; Start at 11:00; Stop 01/15/17 at 10:50 Hydromorphone HCl (Dilaudid) 0.2 mg Q2H PRN IV PAIN LEVEL 1-5; Start 01/14/17 at 11:00; Stop 01/15/17 at 10:50 Hydromorphone HCl (Dilaudid) 0.4 mg Q2H PRN IV PAIN LEVEL 6-10 Last administered on 01/15/17 06:19; Admin Dose 0.4 MG; Start 01/14/17 at 11:00; Stop 01/15/17 at 10:50 Diphenhydramine HCl (Benadryl) 25 mg Q4H PRN IV PRURITUS Last administered on 12:30; Admin Dose 25 MG; Start 01/14/17 at 11:00; Stop 01/15/17 at 10: 50 Ondansetron HCl (Zofran Inj) 4 mg Q6H PRN IV NAUSEA AND/OR VOMITING; Start at 11:00; Stop 01/15/17 at 10:50 Naloxone HCl (Narcan) 0.2 mg Q2M PRN IV FOR RESP RATE 8 OR LESS; Start at 11:00; Stop 01/15/17 at 10:50 Lorazepam (Ativan) 1 mg Q6H PRN IV ANXIETY Last administered on 01/15/17 03:30 ; Admin Dose 1 MG; Start 01/14/17 at 19:30 Atenolol (Tenormin) 50 mg DAILY PO Last administered on 01/15/17 09:20; Admin Dose 50 MG; Start 01/15/17 at 09:00 Docusate Sodium (Colace) 100 mg Q12H PRN PO CONSTIPATION; Start 01/14/17 at 17: 30 Gemfibrozil (Lopid) 600 mg BID PO Last administered on 01/15/17 09:21; Admin Dose 600 MG; Start 01/14/17 at 21:00 Spironolactone (Aldactone) 25 mg DAILY PO Last administered on 01/15/17 09:19 ; Admin Dose 25 MG; Start 01/15/17 at 09:00 DEMETRA JARQUIN MD Jan 15, 2017 10:23
--- NOTE | 2017-01-15 10:36 | PN ---
Date/Time of Note Date/Time of Note DATE: 01/15/17 TIME: 10:34 Assessment/Plan VTE Prophylaxis VTE Prophylaxis Intervention: ambulation, SCD's Lines/Catheters IV Catheter Type (from Nrsg): Peripheral IV Urinary Cath still in place: Yes Reason Cath still needed: other (indicate) Assessment/Plan Chief Complaint/Hosp Course 1. Abdominal/Pelvic pain, multifactorial secondary to probable adenomyosis/ possible endometriosis/ esophagitis/gastric ulcers. -Status post laparoscopic hysterectomy with left salpingo-oophorectomy and right salpingectomy. -Postoperative course per [employer] team -Continue pain control 2. Chronic menometrorrhagia. No stable for -Treatment as above. 3.Esophagitis/Gastric ulcer -Status post EGD-pathology negative for H. pylori. -Continue PPI and Carafate -GI eval appreciated. 3. Chronic iron deficiency anemia secondary to menometrorrhagia. HH stable. -Continue to monitor. -Obtain iron panel and treat accordingly. 4. Anxiety. -Continue Ativan PRN 5. Hypomagnesemia, mild. Replete and monitor. GI prophylaxis: PPI twice daily DVT prophylaxis: SCDs Plan: Encourage incentive spirometry, ambulation. Diet as tolerated. Case discussed with Dr. Sosa Problems: Subjective 24 Hr Interval Summary Free Text/Dictation Patient sitting up in bed. Pain improved. Remains afebrile. Has been started on a full liquid diet. Urinary catheter has been reinserted secondary to retention. Exam/Review of Systems Vital Signs Vitals Vital Signs Date Time Temp Pulse Resp B/P Pulse Ox O2 Delivery O2 Flow Rate FiO2 01/15/17 08:07 95 143/66 97 Nasal Cannula 1.0 01/15/17 07:29 98.8 22 01/15/17 05:20 28 Intake and Output 01/14/17 01/14/17 01/15/17 15:00 23:00 07:00 Intake Total 1600 ml 1515 ml 1575 ml Output Total 700 ml 650 ml 1000 ml Balance 900 ml 865 ml 575 ml Exam General: Morbidly obese female, not in any acute distress . HEENT: Normocephalic, Atraumatic, No laceration or hematoma; Eyes: PEERL, Conjunctiva clear, Anicteric sclera Neck: Supple without any lymphadenopathy, nontender, no JVD, no carotid bruits, trachea midline, no thyromegaly Cardiac: S1, S2 auscultated, regular rhythm and rate, no mumurs or gallop Pulmonary: Normal respiratory effort. Chest clear to auscultation bilaterally, no adventitious breath sounds GI: Lap incisions intact. Abdomen obese to inspection. Soft, non tender, non- distended, no masses, no rebound tenderness or guarding. Bowel sounds active on all four quadrants Genitourinary: Deferred Extremities: No cyanosis, clubbing, or edema. Pulses [2+] bilaterally. Full ROM on all four extremities. No focal weakness appreciated. Neurologic: Alert to person, place, time, and situation. Affect appropriate, intact sensation. Skin: Clean,dry, and intact. No ecchymosis, no rashes, or lesions Results Result Diagram: 01/15/17 0509 01/15/17 0509 Results 24 hrs Laboratory Tests Test 01/14/17 12:37 01/15/17 05:09 01/15/17 06:23 White Blood Count 18.2 #H 10.2 # Red Blood Count 4.44 4.24 Hemoglobin 9.6 L 9.0 L Hematocrit 32.3 L 31.1 L Mean Corpuscular Volume 72.7 L 73.3 L Mean Corpuscular Hemoglobin 21.6 L 21.2 L Mean Corpuscular Hemoglobin Concent 29.7 L 28.9 L Red Cell Distribution Width 19.7 H 19.8 H Platelet Count 269 233 Mean Platelet Volume 10.1 9.7 Neutrophils % 92.7 H 80.6 H Lymphocytes % 3.7 L 12.3 L Monocytes % 2.7 6.1 Eosinophils % 0.1 0.3 Basophils % 0.2 0.2 Nucleated Red Blood Cells % 0.0 0.0 Neutrophils # 16.9 H 8.2 H Lymphocytes # 0.7 L 1.3 Monocytes # 0.5 0.6 Eosinophils # 0.0 0.0 Basophils # 0.0 0.0 Nucleated Red Blood Cells # 0.0 0.0 Sodium Level 141 141 Potassium Level 4.3 4.0 Chloride Level 99 101 Carbon Dioxide Level 28 30 Anion Gap 18 H 14 Blood Urea Nitrogen 6 L 5 L Creatinine 0.73 0.89 Glucose Level 138 113 Calcium Level 8.6 8.4 Prothrombin Time 14.3 H Prothrombin Time Ratio 1.1 INR International Normalized Ratio 1.11 Magnesium Level 1.6 L Lab Scanned Report LAB Medications Medications Current Medications Miscellaneous Information Patients own medicat... BID@ XX ; Start 01/08/17 at 16:00 Morphine Sulfate (morphine) 1 mg Q3H PRN IV pain Last administered on 04:49; Admin Dose 1 MG; Start 01/08/17 at 16:00 Acetaminophen (Tylenol Tab) 650 mg Q6H PRN PO PAIN LEVEL 1-3 OR FEVER; Start at 19:30 Docusate Sodium (Colace) 100 mg Q12H PRN PO CONSTIPATION; Start 01/08/17 at 19: 30 Magnesium Hydroxide (Milk Of Mag) 30 ml DAILY PRN PO CONSTIPATION; Start at 19:30 Sodium Biphosphate/ Sodium Phosphate (Fleet Enema) 133 ml DAILY PRN [place] CONSTIPATION; Start 01/08/17 at 19:30 Hydralazine HCl (Apresoline) 10 mg Q6H PRN IV ELEVATED BLOOD PRESSURE; Start at 19:30 Nitroglycerin (Nitroglycerin (Sl Tab) 0.4 Mg) 1 tab Q5M PRN SL ANGINA; Start at 19:30 Morphine Sulfate (morphine) 2 mg Q2H PRN IV PAIN LEVEL 6-10 Last administered on 01/14/17 12:04; Admin Dose 2 MG; Start 01/14/17 at 08:30 Acetaminophen/ Hydrocodone Bitart ([place] (5/325)) 1 tab Q6H PRN PO PAIN LEVEL 6 -10 Last administered on 01/15/17 02:10; Admin Dose 1 TAB; Start 01/14/17 at 08 :30 Diphenhydramine HCl (Benadryl) 25 mg Q6H PRN PO ITCHING; Start 01/14/17 at 08: 30 Ondansetron HCl (Zofran Inj) 4 mg Q6H PRN IV NAUSEA AND/OR VOMITING Last administered on 01/15/17 07:24; Admin Dose 4 MG; Start 01/14/17 at 08:30 Pantoprazole 40 mg 40 mg DAILY@06 IV Last administered on 01/15/17 05:21; Admin Dose 40 MG; Start 01/15/17 at 06:00 Potassium Chloride/Lactated Ringer's (KCl/Lr) 1,000 ml @ 60 mls/hr [id number] IV Last administered on 01/15/17 04:22; Admin Dose 100 MLS/HR; Start 01/14/17 at 10:00 Sucralfate (Carafate) 1 gm QID PO Last administered on 01/15/17 09:19; Admin Dose 1 GM; Start 01/14/17 at 13:00 Hydromorphone HCl (Dilaudid) 0.2 mg Q30MIN PRN IV BREAKTHROUGH PAIN; Start at 11:00; Stop 01/15/17 at 10:50 Hydromorphone HCl (Dilaudid) 0.2 mg Q2H PRN IV PAIN LEVEL 1-5; Start 01/14/17 at 11:00; Stop 01/15/17 at 10:50 Hydromorphone HCl (Dilaudid) 0.4 mg Q2H PRN IV PAIN LEVEL 6-10 Last administered on 01/15/17 06:19; Admin Dose 0.4 MG; Start 01/14/17 at 11:00; Stop 01/15/17 at 10:50 Diphenhydramine HCl (Benadryl) 25 mg Q4H PRN IV PRURITUS Last administered on 12:30; Admin Dose 25 MG; Start 01/14/17 at 11:00; Stop 01/15/17 at 10: 50 Ondansetron HCl (Zofran Inj) 4 mg Q6H PRN IV NAUSEA AND/OR VOMITING; Start at 11:00; Stop 01/15/17 at 10:50 Naloxone HCl (Narcan) 0.2 mg Q2M PRN IV FOR RESP RATE 8 OR LESS; Start at 11:00; Stop 01/15/17 at 10:50 Lorazepam (Ativan) 1 mg Q6H PRN IV ANXIETY Last administered on 01/15/17 03:30 ; Admin Dose 1 MG; Start 01/14/17 at 19:30 Atenolol (Tenormin) 50 mg DAILY PO Last administered on 01/15/17 09:20; Admin Dose 50 MG; Start 01/15/17 at 09:00 Docusate Sodium (Colace) 100 mg Q12H PRN PO CONSTIPATION; Start 01/14/17 at 17: 30 Gemfibrozil (Lopid) 600 mg BID PO Last administered on 01/15/17 09:21; Admin Dose 600 MG; Start 01/14/17 at 21:00 Spironolactone (Aldactone) 25 mg DAILY PO Last administered on 01/15/17 09:19 ; Admin Dose 25 MG; Start 01/15/17 at 09:00 TASHA COTA NP Jan 15, 2017 10:36
[2017-01-15] MEDS ORDERED: MAGNESIUM SULFATE 1 GM/D5W 100 ML IVPB ONE (11:30)
--- NOTE | 2017-01-15 13:30 | PN ---
Date/Time of Note Date/Time of Note DATE: 01/15/17 TIME: 13:26 Assessment/Plan VTE Prophylaxis VTE Prophylaxis Intervention: SCD's Lines/Catheters IV Catheter Type (from Nrsg): Peripheral IV Urinary Cath still in place: Yes Reason Cath still needed: urinary retention Assessment/Plan Assessment/Plan Assessment * Abdominal pain T/C fibroids S/P TAHBSO * Anemia * EGD Esophagitis Multiple shallow antral ulcers * obesity Plan * will signed out but will follow up as needed * Pantoprazole 40 mg BID X 6 weeks * continue present management * pain control * further orders will depend on clinical course * case discussed with DR Marques Subjective 24 Hr Interval Summary Free Text/Dictation * course reviewed with RN * Patient seen and examined * S/P TAHBSO 1st post day * no untoward events overnight Exam/Review of Systems Vital Signs Vitals Vital Signs Date Time Temp Pulse Resp B/P Pulse Ox O2 Delivery O2 Flow Rate FiO2 01/15/17 08:07 95 143/66 97 Nasal Cannula 1.0 01/15/17 07:29 98.8 22 01/15/17 05:20 28 Intake and Output 01/14/17 01/14/17 01/15/17 15:00 23:00 07:00 Intake Total 1600 ml 1515 ml 1575 ml Output Total 700 ml 650 ml 1000 ml Balance 900 ml 865 ml 575 ml Exam Constitutional: alert, oriented Neck: non-tender, supple Respiratory: clear to auscultation, normal air movement Cardiovascular: nl pulses, regular rate and rhythm Gastrointestinal: non-tender, soft Musculoskeletal: nl extremities to inspection, nl gait and stance Extremities: normal pulses Neurological: nl mental status, nl speech Skin: nl turgor, No rash or lesions Lymph: nl lymph nodes Results Result Diagram: 01/15/17 0509 01/15/17 0509 Results 24 hrs Laboratory Tests Test 01/15/17 05:09 01/15/17 06:23 White Blood Count 10.2 # Red Blood Count 4.24 Hemoglobin 9.0 L Hematocrit 31.1 L Mean Corpuscular Volume 73.3 L Mean Corpuscular Hemoglobin 21.2 L Mean Corpuscular Hemoglobin Concent 28.9 L Red Cell Distribution Width 19.8 H Platelet Count 233 Mean Platelet Volume 9.7 Neutrophils % 80.6 H Lymphocytes % 12.3 L Monocytes % 6.1 Eosinophils % 0.3 Basophils % 0.2 Nucleated Red Blood Cells % 0.0 Neutrophils # 8.2 H Lymphocytes # 1.3 Monocytes # 0.6 Eosinophils # 0.0 Basophils # 0.0 Nucleated Red Blood Cells # 0.0 Prothrombin Time 14.3 H Prothrombin Time Ratio 1.1 INR International Normalized Ratio 1.11 Sodium Level 141 Potassium Level 4.0 Chloride Level 101 Carbon Dioxide Level 30 Anion Gap 14 Blood Urea Nitrogen 5 L Creatinine 0.89 Glucose Level 113 Calcium Level 8.4 Magnesium Level 1.6 L Lab Scanned Report LAB Medications Medications Current Medications Miscellaneous Information Patients own medicat... BID@ XX ; Start 01/08/17 at 16:00 Morphine Sulfate (morphine) 1 mg Q3H PRN IV pain Last administered on 04:49; Admin Dose 1 MG; Start 01/08/17 at 16:00 Acetaminophen (Tylenol Tab) 650 mg Q6H PRN PO PAIN LEVEL 1-3 OR FEVER; Start at 19:30 Docusate Sodium (Colace) 100 mg Q12H PRN PO CONSTIPATION; Start 01/08/17 at 19: 30 Magnesium Hydroxide (Milk Of Mag) 30 ml DAILY PRN PO CONSTIPATION; Start at 19:30 Sodium Biphosphate/ Sodium Phosphate (Fleet Enema) 133 ml DAILY PRN [place] CONSTIPATION; Start 01/08/17 at 19:30 Hydralazine HCl (Apresoline) 10 mg Q6H PRN IV ELEVATED BLOOD PRESSURE; Start at 19:30 Nitroglycerin (Nitroglycerin (Sl Tab) 0.4 Mg) 1 tab Q5M PRN SL ANGINA; Start at 19:30 Morphine Sulfate (morphine) 2 mg Q2H PRN IV PAIN LEVEL 6-10 Last administered on 01/14/17 12:04; Admin Dose 2 MG; Start 01/14/17 at 08:30 Acetaminophen/ Hydrocodone Bitart ([place] (5/325)) 1 tab Q6H PRN PO PAIN LEVEL 6 -10 Last administered on 01/15/17 12:54; Admin Dose 1 TAB; Start 01/14/17 at 08 :30 Diphenhydramine HCl (Benadryl) 25 mg Q6H PRN PO ITCHING; Start 01/14/17 at 08: 30 Ondansetron HCl (Zofran Inj) 4 mg Q6H PRN IV NAUSEA AND/OR VOMITING Last administered on 01/15/17 07:24; Admin Dose 4 MG; Start 01/14/17 at 08:30 Pantoprazole 40 mg 40 mg DAILY@06 IV Last administered on 01/15/17 05:21; Admin Dose 40 MG; Start 01/15/17 at 06:00 Potassium Chloride/Lactated Ringer's (KCl/Lr) 1,000 ml @ 60 mls/hr [id number] IV Last administered on 01/15/17 04:22; Admin Dose 100 MLS/HR; Start 01/14/17 at 10:00 Sucralfate (Carafate) 1 gm QID PO Last administered on 01/15/17 12:43; Admin Dose 1 GM; Start 01/14/17 at 13:00 Lorazepam (Ativan) 1 mg Q6H PRN IV ANXIETY Last administered on 01/15/17 03:30 ; Admin Dose 1 MG; Start 01/14/17 at 19:30 Atenolol (Tenormin) 50 mg DAILY PO Last administered on 01/15/17 09:20; Admin Dose 50 MG; Start 01/15/17 at 09:00 Docusate Sodium (Colace) 100 mg Q12H PRN PO CONSTIPATION; Start 01/14/17 at 17: 30 Gemfibrozil (Lopid) 600 mg BID PO Last administered on 01/15/17 09:21; Admin Dose 600 MG; Start 01/14/17 at 21:00 Spironolactone (Aldactone) 25 mg DAILY PO Last administered on 01/15/17 09:19 ; Admin Dose 25 MG; Start 01/15/17 at 09:00 ANU CORONA NP Jan 15, 2017 13:30
[2017-01-15 14:44] VITALS: BP 128/60; RESP 22
[2017-01-15] MEDS: morphine 2 MG INJ IV PRN ×3 (16:07→22:02)
[2017-01-15 20:01] VITALS: BP 128/54; RESP 20
[2017-01-16] MEDS: morphine 2 MG INJ IV PRN ×7 (00:59→20:48)
[2017-01-16] MEDS ORDERED: METOCLOPRAMIDE 10 MG INJ IV PRN (01:30)
[2017-01-16 02:03] VITALS: BP 151/67; RESP 20
[2017-01-16] MEDS: HYDROCODONE/APAP (5/325) TAB PO PRN ×3 (04:56→19:47)
[2017-01-16] MEDS: PANTOPRAZOLE 40 MG INJ IV SCH (05:34)
[2017-01-16 06:15] LABS: BASOPHILS % 0.1 % (0.0-2.0); EOSINOPHILS # 0.1 10^3/ul (0.0-0.5); EOSINOPHILS % 0.3 % (0.0-7.0); HEMATOCRIT 31.5 % (37.0-47.0); HEMOGLOBIN 9.2 g/dl (12.0-16.0); LYMPHOCYTES # 1.4 10^3/ul (0.8-2.9); LYMPHOCYTES % 9.7 % (15.0-51.0); MEAN CORPUSCULAR HEMOGLOBIN 21.1 pg (29.0-33.0); MEAN CORPUSCULAR HGB CONC 29.2 g/dl (32.0-37.0); MEAN CORPUSCULAR VOLUME 72.2 fl (82.0-101.0); MEAN PLATELET VOLUME 10.2 fl (7.4-10.4); MONOCYTE # 0.9 10^3/ul (0.3-0.9); MONOCYTES % 5.9 % (0.0-11.0); NEUTROPHIL # 12.1 10^3/ul (1.6-7.5); NEUTROPHILS % 83.4 % (39.0-77.0); PLATELET COUNT 255 10^3/UL (140-415); RED BLOOD COUNT 4.36 10^6/ul (4.20-5.40); RED CELL DISTRIBUTION WIDTH 20.3 % (11.5-14.5); WHITE BLOOD COUNT 14.5 10^3/ul (4.8-10.8)
[2017-01-16 06:40] LABS: CALCIUM 8.5 mg/dl (8.4-10.2); CREATININE 0.75 mg/dl (0.44-1.00); POTASSIUM 3.8 mmol/L (3.5-5.1)
[2017-01-16 07:55] VITALS: BP 130/59; RESP 20
[2017-01-16] MEDS: ATENOLOL 50 MG TAB PO SCH (08:11)
[2017-01-16] MEDS: SPIRONOLACTONE 25 MG TAB PO SCH (08:11)
[2017-01-16] MEDS: SUCRALFATE 1 GM TAB PO SCH ×4 (08:11→20:48)
[2017-01-16] MEDS: GEMFIBROZIL 600 MG TAB PO SCH ×2 (08:11→20:48)
--- NOTE | 2017-01-16 08:57 | PN ---
Date/Time of Note Date/Time of Note DATE: 01/16/17 TIME: 08:56 Assessment/Plan VTE Prophylaxis VTE Prophylaxis Intervention: ambulation, SCD's Lines/Catheters IV Catheter Type (from Nrs): Peripheral IV Urinary Cath still in place: No Assessment/Plan Chief Complaint/Hosp Course 1. Abdominal/Pelvic pain, multifactorial secondary to probable adenomyosis/ possible endometriosis/ esophagitis/gastric ulcers. -Status post laparoscopic hysterectomy with left salpingo-oophorectomy and right salpingectomy. -Postoperative course per [employer] team -Continue pain control, ambulation and incentive spirometry. 2. Chronic menometrorrhagia. Stable now. -Treatment as above. 3.Esophagitis/Gastric ulcer -Status post EGD-pathology negative for H. pylori. -Continue PPI and Carafate -GI eval appreciated. 3. Chronic anemia. H&H stable. 4. Anxiety. Stable. -Continue Ativan PRN 5. Triglyceridemia. On fibroids 6. Essential hypertension. Continue antihypertensives GI prophylaxis: PPI twice daily DVT prophylaxis: SCDs Plan: Encourage incentive spirometry, ambulation. Diet as tolerated. Case discussed with Dr. Sosa Problems: Subjective 24 Hr Interval Summary Free Text/Dictation Status post Jolly removal and patient was able to void without any difficulties. Has been ambulated. Tolerating full liquid diet. Remains afebrile. With improved pain status. Exam/Review of Systems Vital Signs Vitals Vital Signs Date Time Temp Pulse Resp B/P Pulse Ox O2 Delivery O2 Flow Rate FiO2 01/16/17 07:55 99.1 77 20 130/59 97 01/16/17 05:34 2.0 01/15/17 08:07 Nasal Cannula 01/15/17 05:20 28 Intake and Output 01/15/17 01/15/17 01/16/17 15:00 23:00 07:00 Intake Total 100 ml 1910 ml 660 ml Output Total 3200 ml 1800 ml Balance 100 ml -1290 ml -1140 ml Exam General: Morbidly obese female, not in any acute distress . HEENT: Normocephalic, Atraumatic, No laceration or hematoma; Eyes: PEERL, Conjunctiva clear, Anicteric sclera Neck: Supple without any lymphadenopathy, nontender, no JVD, no carotid bruits, trachea midline, no thyromegaly Cardiac: S1, S2 auscultated, regular rhythm and rate, no mumurs or gallop Pulmonary: Normal respiratory effort. Chest clear to auscultation bilaterally, no adventitious breath sounds GI: Lap incisions intact. Abdomen obese to inspection. Soft, non tender, non- distended, no masses, no rebound tenderness or guarding. Bowel sounds active on all four quadrants Genitourinary: Deferred Extremities: No cyanosis, clubbing, or edema. Pulses [2+] bilaterally. Full ROM on all four extremities. No focal weakness appreciated. Neurologic: Alert to person, place, time, and situation. Affect appropriate, intact sensation. Skin: Clean,dry, and intact. No ecchymosis, no rashes, or lesions Results Result Diagram: 01/16/1752201/16/17522 Results 24 hrs Laboratory Tests Test 01/16/17 05:23 White Blood Count 14.5 #H Red Blood Count 4.36 Hemoglobin 9.2 L Hematocrit 31.5 L Mean Corpuscular Volume 72.2 L Mean Corpuscular Hemoglobin 21.1 L Mean Corpuscular Hemoglobin Concent 29.2 L Red Cell Distribution Width 20.3 H Platelet Count 255 Mean Platelet Volume 10.2 Neutrophils % 83.4 H Lymphocytes % 9.7 L Monocytes % 5.9 Eosinophils % 0.3 Basophils % 0.1 Nucleated Red Blood Cells % 0.0 Neutrophils # 12.1 H Lymphocytes # 1.4 Monocytes # 0.9 Eosinophils # 0.1 Basophils # 0.0 Nucleated Red Blood Cells # 0.0 Sodium Level 138 Potassium Level 3.8 Chloride Level 102 Carbon Dioxide Level 27 Anion Gap 13 Blood Urea Nitrogen 6 L Creatinine 0.75 Glucose Level 127 Calcium Level 8.5 Medications Medications Current Medications Miscellaneous Information Patients own medicat... BID@ XX ; Start 01/08/17 at 16:00 Morphine Sulfate (morphine) 1 mg Q3H PRN IV pain Last administered on t 04:49; Admin Dose 1 MG; Start 01/08/17 at 16:00 Acetaminophen (Tylenol Tab) 650 mg Q6H PRN PO PAIN LEVEL 1-3 OR FEVER; Start at 19:30 Docusate Sodium (Colace) 100 mg Q12H PRN PO CONSTIPATION; Start 01/08/17 at 19: 30 Magnesium Hydroxide (Milk Of Mag) 30 ml DAILY PRN PO CONSTIPATION; Start at 19:30 Sodium Biphosphate/ Sodium Phosphate (Fleet Enema) 133 ml DAILY PRN [place] CONSTIPATION; Start 01/08/17 at 19:30 Hydralazine HCl (Apresoline) 10 mg Q6H PRN IV ELEVATED BLOOD PRESSURE; Start at 19:30 Nitroglycerin (Nitroglycerin (Sl Tab) 0.4 Mg) 1 tab Q5M PRN SL ANGINA; Start at 19:30 Morphine Sulfate (morphine) 2 mg Q2H PRN IV PAIN LEVEL 6-10 Last administered on 01/16/17 08:54; Admin Dose 2 MG; Start 01/14/17 at 08:30 Acetaminophen/ Hydrocodone Bitart ([place] (5/325)) 1 tab Q6H PRN PO PAIN LEVEL 6 -10 Last administered on 01/16/17 04:56; Admin Dose 1 TAB; Start 01/14/17 at 08 :30 Diphenhydramine HCl (Benadryl) 25 mg Q6H PRN PO ITCHING; Start 01/14/17 at 08: 30 Ondansetron HCl (Zofran Inj) 4 mg Q6H PRN IV NAUSEA AND/OR VOMITING Last administered on 01/15/17 22:14; Admin Dose 4 MG; Start 01/14/17 at 08:30 Pantoprazole 40 mg 40 mg DAILY@06 IV Last administered on 01/16/17 05:34; Admin Dose 40 MG; Start 01/15/17 at 06:00 Potassium Chloride/Lactated Ringer's (KCl/Lr) 1,000 ml @ 60 mls/hr [id number] IV Last administered on 01/15/17 20:00; Admin Dose 60 MLS/HR; Start 01/14/17 at 10 :00 Sucralfate (Carafate) 1 gm QID PO Last administered on 01/16/17 08:11; Admin Dose 1 GM; Start 01/14/17 at 13:00 Lorazepam (Ativan) 1 mg Q6H PRN IV ANXIETY Last administered on 01/15/17 19:52 ; Admin Dose 1 MG; Start 01/14/17 at 19:30 Atenolol (Tenormin) 50 mg DAILY PO Last administered on 01/16/17 08:11; Admin Dose 50 MG; Start 01/15/17 at 09:00 Docusate Sodium (Colace) 100 mg Q12H PRN PO CONSTIPATION; Start 01/14/17 at 17: 30 Gemfibrozil (Lopid) 600 mg BID PO Last administered on 01/16/17 08:11; Admin Dose 600 MG; Start 01/14/17 at 21:00 Spironolactone (Aldactone) 25 mg DAILY PO Last administered on 01/16/17 08:11 ; Admin Dose 25 MG; Start 01/15/17 at 09:00 Simethicone (Mylicon) 80 mg Q6H PRN PO DISTENSION/GAS/BLOATING Last administered on 01/16/17 08:11; Admin Dose 80 MG; Start 01/15/17 at 18:30 Metoclopramide HCl (Reglan) 10 mg Q6H PRN IV NAUSEA AND/OR VOMITING Last administered on 01/16/17 01:18; Admin Dose 10 MG; Start 01/16/17 at 01:30 TASHA COTA NP Jan 16, 2017 08:57
[2017-01-16] MEDS: POTASSIUM CHLORIDE 20 MEQ in LACTATED RINGER'S 990 ML IV SCH ×2 (12:37→15:43)
--- NOTE | 2017-01-16 13:25 | PN ---
Date/Time of Note Date/Time of Note DATE: 01/16/17 TIME: 13:24 Assessment/Plan VTE Prophylaxis VTE Prophylaxis Intervention: SCD's Lines/Catheters IV Catheter Type (from Nrs): Peripheral IV Urinary Cath still in place: No Assessment/Plan Chief Complaint/Hosp Course Adenomyosis, left adnexal mass, hydrosalpinx Problems: Subjective 24 Hr Interval Summary Free Text/Dictation + flatus and less pain. Minimally OOB and voided. Exam/Review of Systems Vital Signs Vitals Vital Signs Date Time Temp Pulse Resp B/P Pulse Ox O2 Delivery O2 Flow Rate FiO2 01/16/17 08:00 Nasal Cannula 01/16/17 07:55 99.1 77 20 130/59 97 01/16/17 05:34 2.0 01/15/17 05:20 28 Intake and Output 01/15/17 01/15/17 01/16/17 15:00 23:00 07:00 Intake Total 100 ml 1910 ml 660 ml Output Total 3200 ml 1800 ml Balance 100 ml -1290 ml -1140 ml Exam resp- clear cvs- NSR abd- soft, minimally tender and clean Ext- NT no edema Results Result Diagram: 01/16/17 0523 01/16/17 0523 Results 24 hrs Laboratory Tests Test 01/16/17 05:23 White Blood Count 14.5 #H Red Blood Count 4.36 Hemoglobin 9.2 L Hematocrit 31.5 L Mean Corpuscular Volume 72.2 L Mean Corpuscular Hemoglobin 21.1 L Mean Corpuscular Hemoglobin Concent 29.2 L Red Cell Distribution Width 20.3 H Platelet Count 255 Mean Platelet Volume 10.2 Neutrophils % 83.4 H Lymphocytes % 9.7 L Monocytes % 5.9 Eosinophils % 0.3 Basophils % 0.1 Nucleated Red Blood Cells % 0.0 Neutrophils # 12.1 H Lymphocytes # 1.4 Monocytes # 0.9 Eosinophils # 0.1 Basophils # 0.0 Nucleated Red Blood Cells # 0.0 Sodium Level 138 Potassium Level 3.8 Chloride Level 102 Carbon Dioxide Level 27 Anion Gap 13 Blood Urea Nitrogen 6 L Creatinine 0.75 Glucose Level 127 Calcium Level 8.5 Medications Medications Current Medications Miscellaneous Information Patients own medicat... BID@16 XX ; Start 01/08/17 at 16:00 Morphine Sulfate (morphine) 1 mg Q3H PRN IV pain Last administered on 04:49; Admin Dose 1 MG; Start 01/08/17 at 16:00 Acetaminophen (Tylenol Tab) 650 mg Q6H PRN PO PAIN LEVEL 1-3 OR FEVER; Start at 19:30 Docusate Sodium (Colace) 100 mg Q12H PRN PO CONSTIPATION; Start 01/08/17 at 19: 30 Magnesium Hydroxide (Milk Of Mag) 30 ml DAILY PRN PO CONSTIPATION; Start at 19:30 Sodium Biphosphate/ Sodium Phosphate (Fleet Enema) 133 ml DAILY PRN [place] CONSTIPATION; Start 01/08/17 at 19:30 Hydralazine HCl (Apresoline) 10 mg Q6H PRN IV ELEVATED BLOOD PRESSURE; Start at 19:30 Nitroglycerin (Nitroglycerin (Sl Tab) 0.4 Mg) 1 tab Q5M PRN SL ANGINA; Start at 19:30 Morphine Sulfate (morphine) 2 mg Q2H PRN IV PAIN LEVEL 6-10 Last administered on 01/16/17 11:44; Admin Dose 2 MG; Start 01/14/17 at 08:30 Acetaminophen/ Hydrocodone Bitart ([place] (5/325)) 1 tab Q6H PRN PO PAIN LEVEL 6 -10 Last administered on 01/16/17 04:56; Admin Dose 1 TAB; Start 01/14/17 at 08 :30 Diphenhydramine HCl (Benadryl) 25 mg Q6H PRN PO ITCHING; Start 01/14/17 at 08: 30 Ondansetron HCl (Zofran Inj) 4 mg Q6H PRN IV NAUSEA AND/OR VOMITING Last administered on 01/15/17 22:14; Admin Dose 4 MG; Start 01/14/17 at 08:30 Pantoprazole 40 mg 40 mg DAILY@06 IV Last administered on 01/16/17 05:34; Admin Dose 40 MG; Start 01/15/17 at 06:00 Potassium Chloride/Lactated Ringer's (KCl/Lr) 1,000 ml @ 60 mls/hr [id number] IV Last administered on 01/15/17 20:00; Admin Dose 60 MLS/HR; Start 01/14/17 at 10 :00 Sucralfate (Carafate) 1 gm QID PO Last administered on 01/16/17 12:44; Admin Dose 1 GM; Start 01/14/17 at 13:00 Lorazepam (Ativan) 1 mg Q6H PRN IV ANXIETY Last administered on 01/15/17 19:52 ; Admin Dose 1 MG; Start 01/14/17 at 19:30 Atenolol (Tenormin) 50 mg DAILY PO Last administered on 01/16/17 08:11; Admin Dose 50 MG; Start 01/15/17 at 09:00 Docusate Sodium (Colace) 100 mg Q12H PRN PO CONSTIPATION; Start 01/14/17 at 17: 30 Gemfibrozil (Lopid) 600 mg BID PO Last administered on 01/16/17 08:11; Admin Dose 600 MG; Start 01/14/17 at 21:00 Spironolactone (Aldactone) 25 mg DAILY PO Last administered on 01/16/17 08:11 ; Admin Dose 25 MG; Start 01/15/17 at 09:00 Simethicone (Mylicon) 80 mg Q6H PRN PO DISTENSION/GAS/BLOATING Last administered on 01/16/17 08:11; Admin Dose 80 MG; Start 01/15/17 at 18:30 Metoclopramide HCl (Reglan) 10 mg Q6H PRN IV NAUSEA AND/OR VOMITING Last administered on 01/16/17 01:18; Admin Dose 10 MG; Start 01/16/17 at 01:30 DEMETRA JARQUIN MD Jan 16, 2017 13:25
[2017-01-16 15:26] VITALS: BP 132/60; RESP 18
[2017-01-16] MEDS ORDERED: morphine 2 MG INJ IV ONE (18:00)
[2017-01-16 20:15] VITALS: BP 125/60; RESP 18
[2017-01-16] MEDS: LORAZEPAM 2 MG INJ IV PRN (22:30)
[2017-01-17] MEDS: morphine 2 MG INJ IV PRN ×4 (00:33→11:30)
[2017-01-17] MEDS: POTASSIUM CHLORIDE 20 MEQ in LACTATED RINGER'S 990 ML IV SCH ×2 (01:57→12:37)
[2017-01-17] MEDS: HYDROCODONE/APAP (5/325) TAB PO PRN ×3 (02:51→14:03)
[2017-01-17 02:54] VITALS: BP 132/62; RESP 20
[2017-01-17] MEDS: PANTOPRAZOLE 40 MG INJ IV SCH (05:51)
[2017-01-17 06:47] LABS: ABNORMAL IP MESSAGE 1; BASOPHILS % 0.2 % (0.0-2.0); EOSINOPHILS # 0.3 10^3/ul (0.0-0.5); EOSINOPHILS % 1.9 % (0.0-7.0); HEMATOCRIT 31.3 % (37.0-47.0); HEMOGLOBIN 8.9 g/dl (12.0-16.0); LYMPHOCYTES % 15.5 % (15.0-51.0); MEAN CORPUSCULAR HEMOGLOBIN 21.3 pg (29.0-33.0); MEAN CORPUSCULAR HGB CONC 28.4 g/dl (32.0-37.0); MEAN CORPUSCULAR VOLUME 74.9 fl (82.0-101.0); MEAN PLATELET VOLUME 10.6 fl (7.4-10.4); MONOCYTE # 0.8 10^3/ul (0.3-0.9); MONOCYTES % 6.1 % (0.0-11.0); NEUTROPHIL # 9.7 10^3/ul (1.6-7.5); NEUTROPHILS % 75.5 % (39.0-77.0); PLATELET COUNT 255 10^3/UL (140-415); RED BLOOD COUNT 4.18 10^6/ul (4.20-5.40); RED CELL DISTRIBUTION WIDTH 20.7 % (11.5-14.5); WHITE BLOOD COUNT 12.9 10^3/ul (4.8-10.8)
[2017-01-17 06:48] LABS: POSITIVE DIFF @See below
[2017-01-17 07:42] LABS: CALCIUM 8.6 mg/dl (8.4-10.2); CREATININE 0.77 mg/dl (0.44-1.00); POTASSIUM 4.1 mmol/L (3.5-5.1)
[2017-01-17 07:52] VITALS: BP 142/60; RESP 20
[2017-01-17] MEDS: ONDANSETRON 4 MG INJ IV PRN (08:11)
--- NOTE | 2017-01-17 09:28 | PDOCDIS ---
Discharge Instructions CONDITION Patient Condition: Stable HOME CARE INSTRUCTIONS: Diet Instructions: Reduced Calorie FOLLOW UP/APPOINTMENTS Follow-up Plan 1.Follow up with in 1-2 weeks [address] [address] Office 2.Follow up with primary care physician in 1 week If you don't have one please let someone know, we can give you resources that may help you pick one. You may also call your insurance company to assign one to you. Review your medication list with your nurse before leaving and if you need new prescriptions please let your nurse know. I may have made changes to your home medications or given you new prescriptions, please let your primary doctor know as well. Stay compliant with your medications and report any side effects to your PCP or pharmacist. Return to the ER if you have any concerns and cannot reach your doctors or call your insurance company, they usually have a nurse that can help you. 3. Follow-up with outpatient pain management clinic. OTHER ORDERS: Other Orders: Diet-controlled and regular exercise for weight reduction. Dressing change as per surgery recommendation TASHA COTA NP Jan 17, 2017 09:28
[2017-01-17] MEDS ORDERED: SIME125C PO (09:31)
[2017-01-17] MEDS ORDERED: HYDR-3498 PO (09:31)
[2017-01-17] MEDS: SPIRONOLACTONE 25 MG TAB PO SCH (09:47)
[2017-01-17] MEDS: GEMFIBROZIL 600 MG TAB PO SCH (09:47)
[2017-01-17] MEDS: SUCRALFATE 1 GM TAB PO SCH ×2 (09:47→13:00)
[2017-01-17] MEDS: ATENOLOL 50 MG TAB PO SCH (09:48)
[2017-01-17 14:19] VITALS: BP 124/58; RESP 20
[2017-01-17] MEDS ORDERED: PANT40TA3 PO (15:21)
--- NOTE | 2017-01-17 15:29 | DS ---
Date/Time of Note Date/Time of Note DATE: 01/17/17 TIME: 15:25 Discharge Summary Admission/Discharge Info Admit Date/Time Jan 08, 2017 at 14:04 Discharge Date/Time Jan 17, 2017 at 14:40 Discharge Diagnosis 1. Abdominal/Pelvic pain, multifactorial secondary to adenomyosis/possible endometriosis/ esophagitis/gastric ulcers. Status post laparoscopic hysterectomy with left salpingo-oophorectomy and right salpingectomy. 2. Chronic menometrorrhagia. Stable now. 3.Esophagitis/Gastric ulcer 3. Chronic anemia. 4. Anxiety. 5. Triglyceridemia. 6. Essential hypertension. Consults ,GI Procedures 01/11/2017. EGD IMPRESSION: 1. Distal esophagitis, moderate. 2. Severe gastritis with multiple shallow antral gastric ulcerations with no stigmata of recent bleeding and benign endoscopic appearance. Rule out Helicobacter pylori infection, biopsy obtained. 01/14/2017 Procedures: 1- Total laparoscopic hysterectomy with left salpingoophorectomy and right salpingectomy 2- Bilateral ureteral dissection with repositioning 3- Retroperitoneal uterine artery ligation adjacent to hypogastric artery Hospital Course This is a 45-year-old female with a past medical history of metromenorrhagia, bipolar disorder, hypertension, morbid obesity, hyperlipidemia, anxiety, who presented initially to [facility] due to lower abdominal pain and severe dysmenorrhea over the last 5 months. Patient was transferred to [facility] for insurance purposes. CT abdomen and pelvis showed heterogeneous uterus without evidence of fibroids or adnexal mass. Patient also had undergone D&C in April 2016. Patient did not have any other constitutional symptoms. Patient was admitted for further evaluation. 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 Patient was continued on pain control medications, IV fluids. H&H was monitored closely and remained stable. Patient also had GI evaluation and she had undergone EGD which showed esophagitis with gastric ulcers. Recommend patient was to continue PPI . H. pylori was negative. Patient on 01/15/2017, patient had undergone successful laparoscopic hysterectomy with left salpingo-oophorectomy and right salpingectomy. Patient tolerated procedure and postoperative course well. H&H remained stable. Patient was able to tolerate diet and activities well. Her pain was postoperative pain was controlled with narcotics. At this time, as per surgeon, there is no further inpatient workup is indicated and patient is stable for discharge. Patient feels back to her baseline and her labs and vital signs remained stable. Disposition: Patient will be discharged home with outpatient follow-up today. She was instructed to keep incision site clean and dry. Patient was also given prescription for pain medications. Condition at time of discharge is stable. Approximately 60 minutes was spent in coordinating the discharge on this patient. Case discussed with . Home Meds Active Scripts Pantoprazole* (Protonix*) 40 Mg Tablet., 40 MG PO BID for 42 Days, #90 TAB Prov:TASHA COTA V. TABULATING CLERK 01/17/17 Simethicone (Gas-X) 125 Mg Capsule, 125 MG PO Q6H for FLATULENCE, #30 CAP Prov:COTAJUMAA V. TABULATING CLERK 01/17/17 Hydrocodone Bit-Acetaminophen (Hydrocodone Bit-APAP) 5-325MG Tablet, 1 TAB PO Q6H Y for PAIN LEVEL 6-10, #40 TAB Prov:TASHA COTA V. TABULATING CLERK 01/17/17 Docusate Sodium* (Colace*) 100 Mg Capsule, 100 MG PO Q12H Y for CONSTIPATION for 30 Days, #60 CAP Prov:LETICIA QUAN MD 05/16/16 Reported Medications Ferrous Sulfate* (Ferrous Sulfate*) 325 Mg Tabec, 325 MG PO TID, TAB 05/14/16 Gemfibrozil* (Lopid*) 600 Mg Tablet, 600 MG PO BID, TAB 05/14/16 Carisoprodol* (Carisoprodol*) 350 Mg Tablet, 350 MG PO TID, TAB 05/14/16 Spironolactone* (Aldactone*) 25 Mg Tablet, 25 MG PO DAILY, #30 TAB 05/14/16 Lorazepam* (Ativan*) 2 Mg Tablet, 2 MG PO TID Y for ANXIETY, #60 TAB 05/14/16 Atenolol* (Atenolol*) 50 Mg Tablet, 50 MG PO DAILY, #30 TAB 05/14/16 Omeprazole* (Omeprazole*) 20 Mg Capsule., 20 MG PO DAILY, #30 CAP 05/14/16 Aspirin* (Aspirin* EC) 81 Mg Tablet., 81 MG PO DAILY, TAB 11/21/16 Follow-up Plan HOME CARE INSTRUCTIONS: Diet Instructions: Reduced Calorie FOLLOW UP/APPOINTMENTS Follow-up Plan 1.Follow up with in 1-2 weeks [id number] [address] Office 2.Follow up with primary care physician in 1 week If you don't have one please let someone know, we can give you resources that may help you pick one. You may also call your insurance company to assign one to you. Review your medication list with your nurse before leaving and if you need new prescriptions please let your nurse know. I may have made changes to your home medications or given you new prescriptions, please let your primary doctor know as well. Stay compliant with your medications and report any side effects to your PCP or pharmacist. Return to the ER if you have any concerns and cannot reach your doctors or call your insurance company, they usually have a nurse that can help you. 3. Follow-up with outpatient pain management clinic. OTHER ORDERS: Other Orders: Diet-controlled and regular exercise for weight reduction. Dressing change as per surgery recommendation Primary Care Provider Ann Marie Lui MD Pending Labs Laboratory Tests Test 01/17/17 05:45 White Blood Count 12.910^3/ul (4.8-10.8) Red Blood Count 4.1810^6/ul (4.20-5.40) Hemoglobin 8.9g/dl (12.0-16.0) Hematocrit 31.3% (37.0-47.0) Mean Corpuscular Volume 74.9fl (82.0-101.0) Mean Corpuscular Hemoglobin 21.3pg (29.0-33.0) Mean Corpuscular Hemoglobin Concent 28.4g/dl (32.0-37.0) Red Cell Distribution Width 20.7% (11.5-14.5) Platelet Count 23407^3/UL (140-415) Mean Platelet Volume 10.6fl (7.4-10.4) Neutrophils % 75.5% (39.0-77.0) Lymphocytes % 15.5% (15.0-51.0) Monocytes % 6.1% (0.0-11.0) Eosinophils % 1.9% (0.0-7.0) Basophils % 0.2% (0.0-2.0) Nucleated Red Blood Cells % 0.0/100WBC (0.0-0.0) Neutrophils # 9.710^3/ul (1.6-7.5) Lymphocytes # 2.010^3/ul (0.8-2.9) Monocytes # 0.810^3/ul (0.3-0.9) Eosinophils # 0.310^3/ul (0.0-0.5) Basophils # 0.010^3/ul (0.0-0.1) Nucleated Red Blood Cells # 0.010^3/ul (0.0-0.0) Sodium Level 144mmol/L (135-144) Potassium Level 4.1mmol/L (3.5-5.1) Chloride Level 103mmol/L (97-110) Carbon Dioxide Level 29mmol/L (21-31) Anion Gap 16 (8-16) Blood Urea Nitrogen 6mg/dl (7-20) Creatinine 0.77mg/dl (0.44-1.00) Glucose Level 108mg/dl (70-220) Calcium Level 8.6mg/dl (8.4-10.2) TASHA COTA NP Jan 17, 2017 15:29
== END 2017-01-17 14:40 | disposition home or self-care (01) | DRG 742 ==
LOC: PP2 14:04 → MS2 01-14 11:59
PROVIDERS: ADMIT Internal Medicine; ATTEND Internal Medicine
PROC: 30233N1 Transfusion of Nonautologous Red Blood Cells into Peripheral Vein, Percutaneous Approach (ICD-10-PCS; 2017-01-11)
PROC: 0DJ08ZZ Inspection of Upper Intestinal Tract, Via Natural or Artificial Opening Endoscopic (ICD-10-PCS; principal; 2017-01-11 13:30)
PROC: 0UT90ZZ Resection of Uterus, Open Approach (ICD-10-PCS; 2017-01-14)
PROC: 0UJD4ZZ Inspection of Uterus and Cervix, Percutaneous Endoscopic Approach (ICD-10-PCS; 2017-01-14)
PROC: 0UT70ZZ Resection of Bilateral Fallopian Tubes, Open Approach (ICD-10-PCS; 2017-01-14)
PROC: 0UT10ZZ Resection of Left Ovary, Open Approach (ICD-10-PCS; 2017-01-14)
PROC: 0TS84ZZ Reposition Bilateral Ureters, Percutaneous Endoscopic Approach (ICD-10-PCS; 2017-01-14)
DX: N92.1 Excessive and frequent menstruation with irregular cycle (principal); Z68.42 Body mass index [BMI] 45.0-49.9, adult; K25.9 Gastric ulcer, unspecified as acute or chronic, without hemorrhage or perforation; D50.0 Iron deficiency anemia secondary to blood loss (chronic); E66.01 Morbid (severe) obesity due to excess calories; N94.6 Dysmenorrhea, unspecified; F31.9 Bipolar disorder, unspecified; N93.8 Other specified abnormal uterine and vaginal bleeding; R10.2 Pelvic and perineal pain; K20.9 Esophagitis, unspecified; N80.0 Endometriosis of uterus; N70.11 Chronic salpingitis; N13.5 Crossing vessel and stricture of ureter without hydronephrosis
CPT/HCPCS: 36430; 71010; 76856; 80048; 80061; 82270; 83036; 83540; 83735; 84100; 84439; 84443; 84484; 85025; 85610; 85730; 86850; 86870; 86900; 86901; 86902; 86920; 87081; 88305; 88312; 88331; 93005; C9113; J0360; J0461; J0690; J1170; J1200; J2060; J2175; J2250; J2270; J2274; J2405; J2710; J2765; J3010; J3475; J3480; J7030; J7120; J7999; P9016

== ENCOUNTER 2017-01-22 19:28 | Emergency (ER) | payer BC ==
[~2017-01-22] VITALS: Ht 165.1 cm; Wt 134.0 kg
[~2017-01-22 19:28] MED LIST changes: +HYDR-3498 PO; +PANT40TA3 PO; +SIME125C PO
[2017-01-22 19:40] VITALS: Ht 165.1 cm; Wt 134.0 kg
[2017-01-22] MEDS ORDERED: morphine 4 MG/ML VIAL IV STA (20:13)
[2017-01-22] MEDS ORDERED: SOD CHLORIDE 0.9% 1,000 ML IV STA (20:13)
[2017-01-22] MEDS ORDERED: ONDANSETRON 4 MG INJ IV STA (20:13)
[2017-01-22] MEDS ORDERED: SOD CHLORIDE 0.9% 100 ML ONE (20:53)
[2017-01-22] MEDS ORDERED: IOHEXOL 300MG/ML 150 ML BTL ONE (20:53)
[2017-01-22 20:57] LABS: ABNORMAL IP MESSAGE 1; BASOPHILS % 0.3 % (0.0-2.0); EOSINOPHILS # 0.3 10^3/ul (0.0-0.5); EOSINOPHILS % 4.2 % (0.0-7.0); HEMATOCRIT 30.2 % (37.0-47.0); HEMOGLOBIN 8.7 g/dl (12.0-16.0); LYMPHOCYTES # 1.8 10^3/ul (0.8-2.9); LYMPHOCYTES % 28.5 % (15.0-51.0); MEAN CORPUSCULAR HEMOGLOBIN 21.4 pg (29.0-33.0); MEAN CORPUSCULAR HGB CONC 28.8 g/dl (32.0-37.0); MEAN CORPUSCULAR VOLUME 74.2 fl (82.0-101.0); MEAN PLATELET VOLUME 10.3 fl (7.4-10.4); MONOCYTE # 0.6 10^3/ul (0.3-0.9); NEUTROPHIL # 3.7 10^3/ul (1.6-7.5); NEUTROPHILS % 57.1 % (39.0-77.0); PLATELET COUNT 272 10^3/UL (140-415); RED BLOOD COUNT 4.07 10^6/ul (4.20-5.40); RED CELL DISTRIBUTION WIDTH 21.8 % (11.5-14.5); WHITE BLOOD COUNT 6.5 10^3/ul (4.8-10.8)
[2017-01-22 20:59] LABS: POSITIVE DIFF @See below
[2017-01-22 21:28] LABS: ALBUMIN/GLOBULIN RATIO 1.11; BILIRUBIN,INDIRECT 0.1 mg/dl (0-1.1); BILIRUBIN,TOTAL 0.1 mg/dl (0.2-1.3); CALCIUM 9.1 mg/dl (8.4-10.2); CREATININE 0.87 mg/dl (0.44-1.00); POTASSIUM 3.8 mmol/L (3.5-5.1); TOTAL PROTEIN 7.6 g/dl (6.1-8.1)
[2017-01-22] MEDS ORDERED: ONDA4TAB14 PO (22:15)
[2017-01-22] MEDS ORDERED: HYDR-902 PO (22:15)
[2017-01-22] MEDS ORDERED: HYDROmorphONE 1 MG/ML SYG IV STA (22:22)
--- NOTE | 2017-01-22 22:24 | RADRPT ---
PROCEDURE: CT Abdomen and Pelvis with contrast. CLINICAL INDICATION: Abdomen and pelvis pain. TECHNIQUE: CT scan of the abdomen and pelvis with contrast was performed. The patient was scanned following the uncomplicated intravenous administration of 100 cc of Omnipaque-300. Coronal and sag ittal reformatted images were obtained from the axial source images. Images were reviewed on a high- resolution PACS workstation. Total exam DLP is 1488.28 mGy-cm. CTDIvol is 23.74 mGy. One or more of the following dose reduction techniques were used: Automated exposure control, adjustment of the mA and/or kV according to patient size, use of iterative reconstruction technique. COMPARISON: Pelvic ultrasound dated 01/09/2017 which was normal. FINDINGS: The lung bases are normal. There is no pleural effusion. The liver is normal in size and attenuation. There are several small low attenuation liver nodules m easuring up to 1.6 cm in diameter. There is no other focal hepatic lesion. The gallbladder is surgically absent with clips noted in the gallbladder bed. The bile ducts are no rmal. The spleen is enlarged. There is no focal splenic lesion. Both adrenals are normal with no enlargement or mass. The pancreas is unremarkable with no mass or evidence of pancreatitis. Both kidneys demonstrate normal contrast enhancement. There is no renal mass or hydronephrosis. The abdominal aorta is not dilated. There is no retroperitoneal lymphadenopathy or mass. There is a small amount of free fluid superior to the bladder in a region measuring approximately 4. 0 x 6.0 x 1.5 cm in AP, transverse, and cranial caudal dimensions. There is mild surrounding mesent maninder edema. There is no other pelvic mass or fluid collection. There may be surgical clips bilater ally in the pelvis. The bladder and distal ureters are normal. The appendix is well seen and appears normal. The bowel and mesentery are otherwise normal. There is no free air. The osseous structures are unremarkable with no fracture or lytic lesion. IMPRESSION: 1. Several small liver nodules measuring up to 1.6 cm. These are probably benign cysts. Correlati on with ultrasound advised. 2. Status post cholecystectomy. 3. Splenomegaly. 4. Small amount of free fluid superior to the bladder measuring approximately 4.0 x 6.0 x 1.5 cm. This may be due to an infectious or inflammatory process. Clinical correlation and follow up is adv ised. 5. Possible surgical clips bilaterally in the pelvis. 6. Normal appendix. 7. Otherwise unremarkable study. RPTAT: QQ .Erik Souza MD, Date Time Electronically viewed and signed by .Erik Souza MD, on 01/22/2017 22:24 .R/
--- NOTE | 2017-01-22 22:27 | ERD ---
ER Documentation Chief Complaint Date/Time DATE: 01/22/17 TIME: 22:25 Chief Complaint 01/14 open HIMA. fever x 2 days, uncontrolled pain since, dysuria and pressur HPI Patient is a 46-year-old female with hypertension who presents with abdominal pain. She had a hysterectomy done on January [address] Barnett. The patient was discharged from the hospital on . She has had pain in the abdomen since the surgery. She says "I feel lightheaded". She said that initially she was having postsurgical bleeding but is no longer bleeding. She said that she has feet swelling bilaterally and pain with urination. She said that she had a fever of 103 on Saturday. She does not have a fever today. Upon review of old medical records this is the patient's fifth visit to the ER since 2011. Review of the emergency department information exchange system shows visits to 3 separate emergency departments. Her primary doctor is Dr. Lui. ROS All systems reviewed and are negative except as per history of present illness. Medications Home Meds Active Scripts Ondansetron (Ondansetron Odt) 4 Mg Tab.rapdis, 4 MG PO Q6H Y for NAUSEA AND/OR VOMITING, #30 TAB Prov:LYDIA WATERS MD 01/22/17 Hydrocodone/Acetaminophen ([place] 10-325 Tablet) 1 Each Tablet, 1 TAB PO Q6H Y for PAIN, #7 TAB Prov:LYDIA WATERS MD 01/22/17 Pantoprazole* (Protonix*) 40 Mg Tablet.dr, 40 MG PO BID for 42 Days, #90 TAB Prov:TASHA COTA NP 01/17/17 Simethicone (Gas-X) 125 Mg Capsule, 125 MG PO Q6H for FLATULENCE, #30 CAP Prov:TASHA COTA V. WATCH MECHANIC 01/17/17 Hydrocodone Bit-Acetaminophen (Hydrocodone Bit-APAP) 5-325MG Tablet, 1 TAB PO Q6H Y for PAIN LEVEL 6-10, #40 TAB Prov:TASHA COTA NP 01/17/17 Docusate Sodium* (Colace*) 100 Mg Capsule, 100 MG PO Q12H Y for CONSTIPATION for 30 Days, #60 CAP Prov:LETICIA QUAN MD 05/16/16 Reported Medications Ferrous Sulfate* (Ferrous Sulfate*) 325 Mg Tabec, 325 MG PO TID, TAB 05/14/16 Gemfibrozil* (Lopid*) 600 Mg Tablet, 600 MG PO BID, TAB 05/14/16 Carisoprodol* (Carisoprodol*) 350 Mg Tablet, 350 MG PO TID, TAB 05/14/16 Spironolactone* (Aldactone*) 25 Mg Tablet, 25 MG PO DAILY, #30 TAB 05/14/16 Lorazepam* (Ativan*) 2 Mg Tablet, 2 MG PO TID Y for ANXIETY, #60 TAB 05/14/16 Atenolol* (Atenolol*) 50 Mg Tablet, 50 MG PO DAILY, #30 TAB 05/14/16 Omeprazole* (Omeprazole*) 20 Mg Capsule.dr, 20 MG PO DAILY, #30 CAP 05/14/16 Aspirin* (Aspirin* EC) 81 Mg Tablet.dr, 81 MG PO DAILY, TAB 05/14/16 Allergies Allergies: Coded Allergies: No Known Allergy (Unverified , 05/14/16) PMhx/Soc History of Surgery: Yes (4 c/s, lap raven, Partial hysterectomy) Anesthesia Reaction: No Hx Neurological Disorder: No Hx Respiratory Disorders: No Hx Cardiac Disorders: No Hx Psychiatric Problems: Yes (mood swings, bipolar disorder, anxiety, depression, PTSD) Hx Miscellaneous Medical Probl: Yes (CHOLECYSTECTOMY, BIPOLAR DISORDER) Hx Alcohol Use: No Hx Substance Use: No (tried edible (with weed) 01/07/17 to relieve pain but did not work) Hx Tobacco Use: No Smoking Status: Never smoker FmHx Family History: diabetes Physical Exam Vitals Vital Signs Date Time Temp Pulse Resp B/P Pulse Ox O2 Delivery O2 Flow Rate FiO2 01/22/17 19:40 98.5 74 20 137/63 99 Physical Exam Const: Moderate distress secondary to pain Head: Atraumatic Eyes: Normal Conjunctiva ENT: Normal External Ears, Nose and Mouth. Neck: Full range of motion..~ No meningismus. Resp: Clear to auscultation bilaterally Cardio: Regular rate and rhythm, no murmurs Abd: Soft, lower abdominal tenderness to palpation without rebound or guarding Skin: Incisions are clean, dry, and intact without sign of infection Back: No midline or flank tenderness Ext: No cyanosis, or edema Neur: Awake and alert Psych: Normal Mood and Affect Result Diagram: 01/22/17204001/22/172040 Results 24 hrs Laboratory Tests Test 01/22/17 20:41 White Blood Count 6.510^3/ul Red Blood Count 4.0710^6/ul Hemoglobin 8.7g/dl Hematocrit 30.2% Mean Corpuscular Volume 74.2fl Mean Corpuscular Hemoglobin 21.4pg Mean Corpuscular Hemoglobin Concent 28.8g/dl Red Cell Distribution Width 21.8% Platelet Count 23762^3/UL Mean Platelet Volume 10.3fl Neutrophils % 57.1% Lymphocytes % 28.5% Monocytes % 9.0% Eosinophils % 4.2% Basophils % 0.3% Nucleated Red Blood Cells % 0.0/100WBC Neutrophils # 3.710^3/ul Lymphocytes # 1.810^3/ul Monocytes # 0.610^3/ul Eosinophils # 0.310^3/ul Basophils # 0.010^3/ul Nucleated Red Blood Cells # 0.010^3/ul Sodium Level 145mmol/L Potassium Level 3.8mmol/L Chloride Level 104mmol/L Carbon Dioxide Level 29mmol/L Anion Gap 16 Blood Urea Nitrogen 11mg/dl Creatinine 0.87mg/dl Glucose Level 90mg/dl Calcium Level 9.1mg/dl Total Bilirubin 0.1mg/dl Direct Bilirubin 0.00mg/dl Indirect Bilirubin 0.1mg/dl Aspartate Amino Transf (AST/SGOT) 16IU/L Alanine Aminotransferase (ALT/SGPT) 25IU/L Alkaline Phosphatase 61IU/L Total Protein 7.6g/dl Albumin 4.0g/dl Globulin 3.60g/dl Albumin/Globulin Ratio 1.11 Lipase 106U/L Current Medications Medications (Trade) Dose Ordered Sig/Breanne Route PRN Reason Start Time Stop Time Status Last Admin Dose Admin Sodium Chloride (NS) 1,000 ml @ 1,000 mls/hr Q1H STAT IV 01/22/17 20:13 01/22/17 21:12 DC 01/22/17 20:39 Morphine Sulfate (morphine) 4 mg ONCE STAT IV 01/22/17 20:13 01/22/17 20:14 DC 01/22/17 20:39 Ondansetron HCl (Zofran Inj) 4 mg ONCE STAT IV 01/22/17 20:13 01/22/17 20:14 DC 01/22/17 20:38 IV Flush 10 ml 10 ml STK-MED ONCE .ROUTE 01/22/17 20:53 01/22/17 20:54 DC 01/22/17 21:47 Sodium Chloride (NS) 100 ml @ ud STK-MED ONCE .ROUTE 01/22/17 20:53 01/22/17 20:54 DC 01/22/17 21:47 Iohexol (Omnipaque 300mg/ ml) 150 ml STK-MED ONCE .ROUTE 01/22/17 20:53 01/22/17 20:54 DC 01/22/17 21:47 Hydromorphone HCl (Dilaudid) 1 mg ONCE STAT IV 01/22/17 22:22 01/22/17 22:23 DC Procedures/MDM CT scan of the abdomen pelvis is pending radiology read at this time. Patient is a 46-year-old female with hypertension who presents with abdominal pain. She has a normal white blood cell count and no fever the emergency department. She has anemia with a hemoglobin of 8.7 but does not require transfusion at this time. Electrolytes are basically normal. The patient has a CT scan of the abdomen pelvis to rule out intra-abdominal abscess or obstruction. If this CT scan is negative I believe that outpatient management would be appropriate but the patient will need to follow-up with her primary doctor and the surgeon within 24 hours for reevaluation. She will be given a prescription for Zofran and [place] for symptomatic relief. She can return sooner for any worsening symptoms. At this point I doubt appendicitis, cholecystitis, or pancreatitis. Departure Diagnosis: Primary Impression: Anemia Anemia type: unspecified type Qualified Code: D64.9 - Anemia, unspecified type Additional Impression: Abdominal pain Abdominal location: lower abdomen, unspecified Qualified Code: R10.30 - Lower abdominal pain Condition: Fair Patient Instructions: Abdominal Pain, Anemia Referrals: DEMETRA BARNETT MD Additional Instructions: SPECIALIST: YOU HAVE A MEDICAL CONDITION WHICH REQUIRES YOU TO SEE A SPECIALIST WITHIN THE NEXT 1-2 DAYS. PLEASE FOLLOW UP WITH YOUR PRIMARY PHYSICIAN FOR REFFERAL.IF YOU DO NOT HAVE A PRIMARY CARE PHYSICIAN AND/OR YOU CAN NOT AFFORD TO SEE A PHYSICIAN THE FOLLOWING RESOURCES HAVE BEEN SUPPLIED TO YOU. IT IS YOUR RESPONSIBILITY TO BE SEEN BY THE SPECIALIST LYDIA WATERS MD Jan 22, 2017 22:27
[2017-01-22] MEDS ORDERED: PIPER-TAZO 3.375 GM IV (PMX) 100 ML IVPB ONE (22:30)
[2017-01-22] MEDS ORDERED: METR500T PO (22:39)
[2017-01-22] MEDS ORDERED: LEVO500T72 PO (22:39)
[2017-01-22 22:47] LABS: ADD UMIC NO; UR ASCORBIC ACID NEGATIVE (NEGATIVE); UR BILIRUBIN (Dip) NEGATIVE (NEGATIVE); UR BLOOD (Dip) NEGATIVE (NEGATIVE); UR CLARITY CLEAR (CLEAR); UR COLOR STRAW (YELLOW); UR GLUCOSE (Dip) NEGATIVE (NEGATIVE); UR KETONES (Dip) NEGATIVE (NEGATIVE); UR LEUKOCYTE ESTERASE (Dip) NEGATIVE Leu/ul (NEGATIVE); UR NITRITE (Dip) NEGATIVE (NEGATIVE); UR SPECIFIC GRAVITY (Dip) 1.011 (1.003-1.030); UR TOTAL PROTEIN (Dip) NEGATIVE (NEGATIVE); UR UROBILINOGEN (Dip) NEGATIVE (NEGATIVE)
[2017-01-22 23:40] VITALS: BP 138/74; PULSE 70; RESP 20; TEMP 98.5
== END 2017-01-22 23:36 | disposition home or self-care (01) ==
LOC: E/R 19:28
DX: D64.9 Anemia, unspecified (principal); R10.30 Lower abdominal pain, unspecified; R10.2 Pelvic and perineal pain; Z79.82 Long term (current) use of aspirin
CPT/HCPCS: 36415; 74177; 80053; 81003; 83690; 85025; 87040; 96374; 96375; J1170; J2270; J2405; J2543; J7030; Q9967; Z7502; Z7610

== ENCOUNTER 2017-01-23 17:33 | Emergency (ER) | payer BC ==
[~2017-01-23] VITALS: Ht 162.6 cm; Wt 132.0 kg
[~2017-01-23 17:33] MED LIST changes: -ASPI-664 PO; +HYDR-902 PO; +LEVO500T72 PO; +METR500T PO; +ONDA4TAB14 PO
[2017-01-23 17:36] VITALS: Ht 162.6 cm; Wt 132.0 kg
[2017-01-23] MEDS ORDERED: HYDROCODONE/APAP (5/325) TAB PO ONE (23:00)
--- NOTE | 2017-01-23 23:42 | RADRPT ---
PROCEDURE: XR Chest. CLINICAL INDICATION: Trauma. TECHNIQUE: Single frontal view of the chest. COMPARISON: None. FINDINGS: Heart size is at upper limits of normal. Mild atelectasis at the left lung base. The lungs are oth erwise clear. No signs of pleural fluid or pneumothorax are seen. The osseous structures and soft ti ssues are unremarkable. IMPRESSION: 1. Mild atelectasis at the left lung base. 2. Otherwise, no evident acute thoracic injury. RPTAT: [facility] Physician Danyell Date Time Electronically viewed and signed by Physician Danyell on 01/23/2017 23:41 RS/
--- NOTE | 2017-01-23 23:42 | RADRPT ---
PROCEDURE: X-ray pelvis CLINICAL INDICATION: The patient is status post fall with pelvic pain TECHNIQUE: Single frontal view of the pelvis COMPARISON: None FINDINGS: No acute fracture or dislocation. Soft tissues unremarkable. IMPRESSION: No acute fracture. RPTAT: [facility] Physician Danyell Date Time Electronically viewed and signed by Davin Garcia Physician on 01/23/2017 23:42 RS/
[2017-01-23 23:47] LABS: ABNORMAL IP MESSAGE 1; BASOPHILS % 0.2 % (0.0-2.0); EOSINOPHILS # 0.3 10^3/ul (0.0-0.5); EOSINOPHILS % 4.2 % (0.0-7.0); HEMATOCRIT 29.8 % (37.0-47.0); HEMOGLOBIN 8.6 g/dl (12.0-16.0); LYMPHOCYTES # 1.9 10^3/ul (0.8-2.9); LYMPHOCYTES % 29.1 % (15.0-51.0); MEAN CORPUSCULAR HEMOGLOBIN 21.4 pg (29.0-33.0); MEAN CORPUSCULAR HGB CONC 28.9 g/dl (32.0-37.0); MEAN CORPUSCULAR VOLUME 74.3 fl (82.0-101.0); MEAN PLATELET VOLUME 10.4 fl (7.4-10.4); MONOCYTE # 0.5 10^3/ul (0.3-0.9); MONOCYTES % 7.5 % (0.0-11.0); NEUTROPHIL # 3.7 10^3/ul (1.6-7.5); NEUTROPHILS % 57.6 % (39.0-77.0); PLATELET COUNT 280 10^3/UL (140-415); RED BLOOD COUNT 4.01 10^6/ul (4.20-5.40); RED CELL DISTRIBUTION WIDTH 21.5 % (11.5-14.5); WHITE BLOOD COUNT 6.4 10^3/ul (4.8-10.8)
[2017-01-23 23:49] LABS: POSITIVE DIFF @See below
--- NOTE | 2017-01-23 23:54 | RADRPT ---
PROCEDURE: ULTRASOUND ABDOMEN LIMITED - FAST EXAM CLINICAL INDICATION: 46-year-old female with trauma. TECHNIQUE: Limited sonographic images of the four-quadrant lower quadrant of the abdomen to evalua te for free fluid. The images were reviewed on a high-resolution PACS workstation. COMPARISON: None. FINDINGS: There is no sonographic evidence for free fluid within the four quadrants of the abdomen. No focal areas of abnormal echogenicity are visualized. IMPRESSION: No sonographic evidence for free fluid within the abdomen. .Buck Silverman MD, MD Date Time Electronically viewed and signed by .Buck Silverman MD, on 01/23/2017 23:54 .M/
[2017-01-24 00:06] LABS: ALBUMIN 3.8 g/dl (3.3-4.9); BILIRUBIN,INDIRECT 0.1 mg/dl (0-1.1); BILIRUBIN,TOTAL 0.1 mg/dl (0.2-1.3); CALCIUM 9.3 mg/dl (8.4-10.2); CREATININE 0.86 mg/dl (0.44-1.00); TOTAL PROTEIN 7.3 g/dl (6.1-8.1)
--- NOTE | 2017-01-24 00:15 | ERD ---
ER Documentation Chief Complaint Date/Time DATE: 01/24/17 TIME: 00:15 Chief Complaint back pain s/p fall this morning, pain at surgical site hysterectomy 01/14 HPI 46 year old female with a history of recent hysterectomy on 01/14/17 presenting with right sided abdominal pain after a fall. She states she was sitting on the toilet today and when she stood up her legs felt weak and she fell onto her right side. She denies any head trauma or loss of consciousness. The right side of her abdomen has been hurting since. The pain is reportedly a 10 out of 10, radiating throughout the right side of her abdomen, with no associated nausea, vomiting, diarrhea, hematochezia, or melena. She denies any chest pain or shortness of breath. She has not had pain medication since her surgery due to some pharmacy issues. Of note, per the patient's ART report, she has been to the ER every day for the past 4 days. On January 20 and , she was at another hospital. Yesterday she came to this hospital for postop pain, had a CT scan, and was discharged home with instructions to follow-up with her surgeon. ROS All systems reviewed and are negative except as per history of present illness. Medications Home Meds Active Scripts Metronidazole* (Flagyl*) 500 Mg Tablet, 500 MG PO TID for 7 Days, TAB Prov:LYDIA WATERS MD 01/22/17 Levofloxacin* (Levaquin*) 500 Mg Tablet, 500 MG PO DAILY for 7 Days, TAB Prov:LYDIA WATERS MD 01/22/17 Ondansetron (Ondansetron Odt) 4 Mg Tab.rapdis, 4 MG PO Q6H Y for NAUSEA AND/OR VOMITING, #30 TAB Prov:LYDIA WATERS MD 01/22/17 Hydrocodone/Acetaminophen ([place] 10-325 Tablet) 1 Each Tablet, 1 TAB PO Q6H Y for PAIN, #7 TAB Prov:LYDIA WATERS MD 01/22/17 Pantoprazole* (Protonix*) 40 Mg Tablet.dr, 40 MG PO BID for 42 Days, #90 TAB Prov:TASHA COTA NP 01/17/17 Simethicone (Gas-X) 125 Mg Capsule, 125 MG PO Q6H for FLATULENCE, #30 CAP Prov:TASHA COTA NP 01/17/17 Hydrocodone Bit-Acetaminophen (Hydrocodone Bit-APAP) 5-325MG Tablet, 1 TAB PO Q6H Y for PAIN LEVEL 6-10, #40 TAB Prov:TASHA COTA V. [employer]CH[employer]ICIAN 01/17/17 Docusate Sodium* (Colace*) 100 Mg Capsule, 100 MG PO Q12H Y for CONSTIPATION for 30 Days, #60 CAP Prov:LETICIA QUAN MD 05/16/16 Reported Medications Ferrous Sulfate* (Ferrous Sulfate*) 325 Mg Tabec, 325 MG PO TID, TAB 05/14/16 Gemfibrozil* (Lopid*) 600 Mg Tablet, 600 MG PO BID, TAB 05/14/16 Carisoprodol* (Carisoprodol*) 350 Mg Tablet, 350 MG PO TID, TAB 05/14/16 Spironolactone* (Aldactone*) 25 Mg Tablet, 25 MG PO DAILY, #30 TAB 05/14/16 Lorazepam* (Ativan*) 2 Mg Tablet, 2 MG PO TID Y for ANXIETY, #60 TAB 05/14/16 Atenolol* (Atenolol*) 50 Mg Tablet, 50 MG PO DAILY, #30 TAB 05/14/16 Omeprazole* (Omeprazole*) 20 Mg Capsule.dr, 20 MG PO DAILY, #30 CAP 05/14/16 Discontinued Reported Medications Aspirin* (Aspirin* EC) 81 Mg Tablet.dr, 81 MG PO DAILY, TAB 05/14/16 Allergies Allergies: Coded Allergies: No Known Allergy (Unverified , 01/22/17) PMhx/Soc History of Surgery: Yes (4 c/s, lap raven, Partial hysterectomy) Anesthesia Reaction: No Hx Neurological Disorder: No Hx Respiratory Disorders: No Hx Cardiac Disorders: No Hx Psychiatric Problems: Yes (mood swings, bipolar disorder, anxiety, depression, PTSD) Hx Miscellaneous Medical Probl: Yes (CHOLECYSTECTOMY, BIPOLAR DISORDER) Hx Alcohol Use: No Hx Substance Use: No (tried edible (with weed) 01/07/17 to relieve pain but did not work) Hx Tobacco Use: No Smoking Status: Never smoker FmHx Family History: No diabetes Physical Exam Vitals Vital Signs Date Time Temp Pulse Resp B/P Pulse Ox O2 Delivery O2 Flow Rate FiO2 01/24/17 00:20 98.1 72 19 130/81 99 Room Air 01/23/17 23:13 98.0 75 18 126/82 99 Room Air 01/23/17 17:36 98.0 81 18 137/68 99 Physical Exam Const: Nontoxic, in mild distress secondary to pain. Large body habitus. Head: Atraumatic Eyes: Normal Conjunctiva ENT: Normal External Ears, Nose and Mouth. Neck: Full range of motion..~ No meningismus. No C-spine tenderness Resp: Clear to auscultation bilaterally Cardio: Regular rate and rhythm, no murmurs. 2+ distal pulses Abd: Soft, laparoscopy scars clean dry intact with no drainage or evidence of infection. No abdominal wall bruising. Minimal tenderness in the right upper and right lower quadrants with no rebound or guarding, non distended. Normal bowel sounds Skin: Pallor noted, no petechiae or rashes Back: No midline or flank tenderness. Diffuse paraspinal muscle tenderness over the mid to lower back bilaterally Ext: No cyanosis, or edema Neur: Awake and alert, no facial asymmetry, strength grossly intact, sensations intact Psych: Normal Mood and Affect Result Diagram: 01/23/17229901/23/172299 Results 24 hrs Laboratory Tests Test 01/23/17 23:00 White Blood Count 6.410^3/ul Red Blood Count 4.0110^6/ul Hemoglobin 8.6g/dl Hematocrit 29.8% Mean Corpuscular Volume 74.3fl Mean Corpuscular Hemoglobin 21.4pg Mean Corpuscular Hemoglobin Concent 28.9g/dl Red Cell Distribution Width 21.5% Platelet Count 68347^3/UL Mean Platelet Volume 10.4fl Neutrophils % 57.6% Lymphocytes % 29.1% Monocytes % 7.5% Eosinophils % 4.2% Basophils % 0.2% Nucleated Red Blood Cells % 0.0/100WBC Neutrophils # 3.710^3/ul Lymphocytes # 1.910^3/ul Monocytes # 0.510^3/ul Eosinophils # 0.310^3/ul Basophils # 0.010^3/ul Nucleated Red Blood Cells # 0.010^3/ul Urine Color STRAW Urine Clarity CLEAR Urine pH 5.0 Urine Specific [place] 1.011 Urine Ketones NEGATIVEmg/dL Urine Nitrite NEGATIVEmg/dL Urine Bilirubin NEGATIVEmg/dL Urine Urobilinogen NEGATIVEmg/dL Urine Leukocyte Esterase NEGATIVELeu/ul Urine Hemoglobin NEGATIVEmg/dL Urine Glucose NEGATIVEmg/dL Urine Total Protein NEGATIVEmg/dl Sodium Level 144mmol/L Potassium Level 4.0mmol/L Chloride Level 101mmol/L Carbon Dioxide Level 30mmol/L Anion Gap 17 Blood Urea Nitrogen 10mg/dl Creatinine 0.86mg/dl Glucose Level 87mg/dl Calcium Level 9.3mg/dl Total Bilirubin 0.1mg/dl Direct Bilirubin 0.00mg/dl Indirect Bilirubin 0.1mg/dl Aspartate Amino Transf (AST/SGOT) 17IU/L Alanine Aminotransferase (ALT/SGPT) 29IU/L Alkaline Phosphatase 64IU/L Total Protein 7.3g/dl Albumin 3.8g/dl Current Medications Medications (Trade) Dose Ordered Sig/Breanne Route PRN Reason Start Time Stop Time Status Last Admin Dose Admin Acetaminophen/ Hydrocodone Bitart ([place] (5/325)) 2 tab ONCE ONCE PO 01/23/17 23:00 01/23/17 23:02 DC 01/23/17 23:12 Procedures/MDM CBC: Anemia, chronic and stable when compared to previous labs CMP: No evidence of electrolyte abnormality, renal failure, hypoglycemia, liver failure, or biliary obstruction Imaging Chest x-ray shows no acute abnormalities Pelvic x-ray does not show evidence of fracture or other abnormality Ultrasound abdomen does not show any evidence of free fluid MDM Patient is presenting after a ground-level fall with right-sided abdominal pain. She is afebrile, well-appearing, with stable vitals. I suspect abdominal wall contusion. There is no free fluid on the ultrasound and her labs including her liver enzymes were normal. I have a low suspicion for an acute surgical abdomen. There are no signs of sepsis. I suspect the patient is medication seeking as she is unable to get her narcotic pain medications until 2 days from now per her pharmacy. I gave her 2 Phoenix tablets here in the ED. Upon reevaluation, the patient was asking for "stronger" pain medications that she got yesterday. As there is no evidence of an acute serious injury, I told the patient I could not give her any narcotic IV or IM medications. Patient was encouraged to follow-up with her primary care doctor and her surgeon if her pain persists. Return precautions were given. Departure Diagnosis: Primary Impression: Fall from ground level Additional Impression: Contusion of abdominal wall, initial encounter Condition: Stable Patient Instructions: Contusion, Soft Tissue Additional Instructions: Follow-up with your primary care doctor and your surgeon in the next 1-2 days. Return for any worsening symptoms. YASMIN CORONA MD Jan 24, 2017 00:15
[2017-01-24 00:20] VITALS: BP 130/81; PULSE 72; RESP 19; TEMP 98.1
[2017-01-24 00:31] LABS: ADD UMIC NO; UR ASCORBIC ACID NEGATIVE (NEGATIVE); UR BILIRUBIN (Dip) NEGATIVE (NEGATIVE); UR BLOOD (Dip) NEGATIVE (NEGATIVE); UR CLARITY CLEAR (CLEAR); UR COLOR STRAW (YELLOW); UR GLUCOSE (Dip) NEGATIVE (NEGATIVE); UR KETONES (Dip) NEGATIVE (NEGATIVE); UR LEUKOCYTE ESTERASE (Dip) NEGATIVE Leu/ul (NEGATIVE); UR NITRITE (Dip) NEGATIVE (NEGATIVE); UR SPECIFIC GRAVITY (Dip) 1.011 (1.003-1.030); UR TOTAL PROTEIN (Dip) NEGATIVE (NEGATIVE); UR UROBILINOGEN (Dip) NEGATIVE (NEGATIVE)
== END 2017-01-24 00:26 | disposition home or self-care (01) ==
LOC: E/R 17:33
DX: S30.1XXA Contusion of abdominal wall, initial encounter (principal); R07.9 Chest pain, unspecified; W18.39XA Other fall on same level, initial encounter; Y92.9 Unspecified place or not applicable; Z79.82 Long term (current) use of aspirin
CPT/HCPCS: 36415; 71010; 72170; 76705; 80048; 80076; 81003; 85025; Z7502; Z7610

== ENCOUNTER 2017-02-06 16:56 | Emergency (ER) | payer BC ==
[~2017-02-06] VITALS: Ht 165.1 cm; Wt 126.5 kg
[2017-02-06 16:58] VITALS: Ht 165.1 cm; Wt 126.5 kg
[2017-02-06 18:32] LABS: ABNORMAL IP MESSAGE 1; BASOPHILS % 0.4 % (0.0-2.0); EOSINOPHILS # 0.2 10^3/ul (0.0-0.5); EOSINOPHILS % 1.9 % (0.0-7.0); HEMATOCRIT 35.2 % (37.0-47.0); HEMOGLOBIN 10.3 g/dl (12.0-16.0); LYMPHOCYTES % 25.5 % (15.0-51.0); MEAN CORPUSCULAR HEMOGLOBIN 21.7 pg (29.0-33.0); MEAN CORPUSCULAR HGB CONC 29.3 g/dl (32.0-37.0); MEAN CORPUSCULAR VOLUME 74.1 fl (82.0-101.0); MEAN PLATELET VOLUME 11.1 fl (7.4-10.4); MONOCYTE # 0.6 10^3/ul (0.3-0.9); MONOCYTES % 7.1 % (0.0-11.0); NEUTROPHILS % 64.8 % (39.0-77.0); PLATELET COUNT 292 10^3/UL (140-415); RED BLOOD COUNT 4.75 10^6/ul (4.20-5.40); RED CELL DISTRIBUTION WIDTH 22.5 % (11.5-14.5); WHITE BLOOD COUNT 7.9 10^3/ul (4.8-10.8)
[2017-02-06] MEDS ORDERED: SPIR50TA PO (18:40)
[2017-02-06 18:53] LABS: CREATININE 0.95 mg/dl (0.44-1.00); POSITIVE DIFF @See below; POTASSIUM 4.1 mmol/L (3.5-5.1)
[2017-02-06 19:10] LABS: URINE BLOOD (Dip) POC Negative (NEGATIVE)
[2017-02-06] MEDS ORDERED: KETO120S2 TOP (19:39)
[2017-02-06] MEDS ORDERED: HYDROCODONE/APAP (7.5/325) TAB PO ONE (20:00)
[2017-02-06 20:45] VITALS: BP 110/65; PULSE 84; RESP 18
--- NOTE | 2017-02-19 11:37 | ERD ---
ER Documentation Chief Complaint Date/Time DATE: 02/06/17 TIME: 11:33 Chief Complaint Fever and abd pain at surgery site 2nd visit for this HPI 46-year-old woman with abdominal pain status post operative intervention a week ago, she denies purulent drainage or discharge although she states she has had tactile fevers over the last few days. She has been using opioid analgesics at home and complains of pain. She denies blood per rectum or melena, no vomiting or diarrhea, no chest pain or shortness of breath ROS All systems reviewed and are negative except as per history of present illness. Medications Home Meds Active Scripts Ketoconazole* (Ketoconazole*) 2% - 120 Ml Shampoo, 1 APPLIC TOP DAILY for 14 Days, #1 TUB WASH HAIR/SCALP AND RINSE OFF Prov:JERARDO GOMEZ MD 02/06/17 Ondansetron (Ondansetron Odt) 4 Mg Tab.rapdis, 4 MG PO Q6H Y for NAUSEA AND/OR VOMITING, #30 TAB Prov:LYDIA WATERS MD 01/22/17 Hydrocodone/Acetaminophen ([place] 10-325 Tablet) 1 Each Tablet, 1 TAB PO Q6H Y for PAIN, #7 TAB Prov:LYDIA WATERS MD 01/22/17 Pantoprazole* (Protonix*) 40 Mg Tablet.dr, 40 MG PO BID for 42 Days, #90 TAB Prov:TASHA COTA NP 01/17/17 Docusate Sodium* (Colace*) 100 Mg Capsule, 100 MG PO Q12H Y for CONSTIPATION for 30 Days, #60 CAP Prov:LETICIA QUAN MD 05/16/16 Reported Medications Spironolactone* (Aldactone*) 50 Mg Tablet, 150 MG PO TID, #180 TAB 02/06/17 Ferrous Sulfate* (Ferrous Sulfate*) 325 Mg Tabec, 325 MG PO TID, TAB 05/14/16 Gemfibrozil* (Lopid*) 600 Mg Tablet, 600 MG PO BID, TAB 05/14/16 Carisoprodol* (Carisoprodol*) 350 Mg Tablet, 350 MG PO BID, TAB 05/14/16 Lorazepam* (Ativan*) 2 Mg Tablet, 2 MG PO TID Y for ANXIETY, #60 TAB 11/21/16 Atenolol* (Atenolol*) 50 Mg Tablet, 50 MG PO DAILY, #30 TAB 05/14/16 Allergies Allergies: Coded Allergies: No Known Allergy (Unverified , 02/06/17) PMhx/Soc History of Surgery: Yes (4 c/s, lap raven, Partial hysterectomy) Anesthesia Reaction: No Hx Neurological Disorder: No Hx Respiratory Disorders: No Hx Cardiac Disorders: No Hx Psychiatric Problems: Yes (mood swings, bipolar disorder, anxiety, depression, PTSD) Hx Miscellaneous Medical Probl: Yes (CHOLECYSTECTOMY, BIPOLAR DISORDER) Hx Alcohol Use: No Hx Substance Use: No (tried edible (with weed) 01/07/17 to relieve pain but did not work) Hx Tobacco Use: No FmHx Family History: No diabetes Physical Exam Vitals Per nurse's notes Physical Exam GENERAL: Well-developed, well-nourished, well-hydrated, afebrile HEENT: Moist mucous membranes, pink conjunctiva, no cervical spine tenderness or step-off deformities, no goiter, no jaundice or icterus, extraocular movements intact without pain. No submandibular induration, and no pharyngeal erythema NEURO: Alert and oriented 3, cranial nerves II through XII intact bilaterally, pupils equal round reactive to light, no focal deficits or facial asymmetry, sensation intact distally Strength 5/5 in upper and lower extremities bilaterally CARDIAC: Regular rate and rhythm, no murmurs rubs or gallops LUNGS: Clear bilaterally no wheezing crackles or stridor ABDOMEN: Soft nontender, no guarding, no rigidity, no rebound, no psoas sign no obturator sign. Normoactive bowel sounds SKIN: Nonerythematous dry erythema to the skin around the abdominal incision to the underside of the abdominal pannus, no purulent drainage or discharge noted, no masses palpated EXTREMITIES: No clubbing cyanosis or edema, calves are bilaterally symmetrical, no Homans sign, no popliteal cord sign. Distal pulses equal and bilateral PSYCH: Normal affect without agitation or irritability Results 24 hrs Laboratory Tests Test 02/06/17 18:08 02/06/17 19:16 White Blood Count 7.910^3/ul Red Blood Count 4.7510^6/ul Hemoglobin 10.3g/dl Hematocrit 35.2% Mean Corpuscular Volume 74.1fl Mean Corpuscular Hemoglobin 21.7pg Mean Corpuscular Hemoglobin Concent 29.3g/dl Red Cell Distribution Width 22.5% Platelet Count 61641^3/UL Mean Platelet Volume 11.1fl Neutrophils % 64.8% Lymphocytes % 25.5% Monocytes % 7.1% Eosinophils % 1.9% Basophils % 0.4% Nucleated Red Blood Cells % 0.0/100WBC Neutrophils # (Manual) 5.110^3/ul Lymphocytes # 2.010^3/ul Monocytes # 0.610^3/ul Eosinophils # 0.210^3/ul Basophils # 0.010^3/ul Nucleated Red Blood Cells # 0.010^3/ul Sodium Level 139mmol/L Potassium Level 4.1mmol/L Chloride Level 104mmol/L Carbon Dioxide Level 25mmol/L Anion Gap 14 Blood Urea Nitrogen 14mg/dl Creatinine 0.95mg/dl Glucose Level 136mg/dl Lactic Acid Level 1.6mmol/L Calcium Level 9.0mg/dl Bedside Urine pH (LAB) 5.5 Bedside Urine Protein (LAB) Negative Bedside Urine Glucose (UA) Negative Bedside Urine Ketones (LAB) Negative Bedside Urine Blood Negative Bedside Urine Nitrite (LAB) Negative Bedside Urine Leukocyte Esterase (L Negative Current Medications Medications (Trade) Dose Ordered Sig/Breanne Route PRN Reason Start Time Stop Time Status Last Admin Dose Admin Acetaminophen/ Hydrocodone Bitart ([place] (7.5-325)) 1 tab ONCE ONCE PO 02/06/17 20:00 02/06/17 20:01 DC 02/06/17 20:17 Procedures/MDM I administered Percocet 1 tablet p.o. Abdominal examination was benign although skin findings suggest cutaneous candidal infection. CBC and electrolytes were normal, lactic acid normal. Differential diagnoses considered, included but not limited to acute coronary syndrome, pulmonary embolism, aortic dissection, abdominal aortic aneurysm, sepsis, stroke, meningitis, encephalitis, pneumonia, appendicitis, cholecystitis , bowel obstruction, pyelonephritis, nephrolithiasis, cystitis, as well as metabolic, hematologic, and electrolyte abnormalities. As well as abscess, cellulitis, fractures, and dislocations. Patient feels much better at this time, and vital signs are normal, symptoms have improved. I did give strict instructions to return to the ED if symptoms continue or worsen, patient will otherwise follow-up with primary care physician. Patient understood instructions and agreed to plan. Disclaimer: Inadvertent spelling and grammatical errors are likely due to EHR/ dictation software use and do not reflect on the overall quality of patient care. Also, please note that the electronic time recorded on this note does not necessarily reflect the actual time of the patient encounter. Departure Diagnosis: Primary Impression: Candidiasis, cutaneous Additional Impression: Postoperative pain Condition: Good Patient Instructions: [place]ia Skin Infection (Adult), Post Op Wound Check, Pain JERARDO GOMEZ MD Feb 19, 2017 11:37
== END 2017-02-06 20:45 | disposition home or self-care (01) ==
LOC: FTE 16:56 → E/R 20:45
DX: B37.2 Candidiasis of skin and nail (principal); R40.2252 Coma scale, best verbal response, oriented, at arrival to emergency department; G89.18 Other acute postprocedural pain; R40.2142 Coma scale, eyes open, spontaneous, at arrival to emergency department; R40.2362 Coma scale, best motor response, obeys commands, at arrival to emergency department
CPT/HCPCS: 36415; 80048; 81003; 83605; 85025; Z7502; Z7610; 99283

== ENCOUNTER 2017-02-22 14:49 | Emergency (ER) | payer BC ==
[~2017-02-22] VITALS: Ht 162.6 cm; Wt 128.0 kg
[~2017-02-22 14:49] MED LIST changes: -HYDR-3498 PO; +KETO120S2 TOP; -LEVO500T72 PO; -METR500T PO; -OMEP20CA16 PO; -SIME125C PO; -SPIR25TA PO; +SPIR50TA PO
[2017-02-22 14:57] VITALS: Ht 162.6 cm; Wt 128.0 kg
[2017-02-22] MEDS ORDERED: SOD CHLORIDE 0.9% 1,000 ML IV STA (16:51)
[2017-02-22] MEDS ORDERED: KETOROLAC 30 MG INJ IV STA ×2 (16:51→19:14)
[2017-02-22] MEDS ORDERED: ONDANSETRON 4 MG INJ IV STA (16:51)
[2017-02-22] MEDS ORDERED: morphine 4 MG/ML VIAL IV STA (17:14)
[2017-02-22] MEDS ORDERED: SOD CHLORIDE 0.9% 100 ML ONE (17:15)
[2017-02-22] MEDS ORDERED: IOHEXOL 300MG/ML 150 ML BTL ONE (17:15)
[2017-02-22 17:26] LABS: BASOPHILS % 0.2 % (0.0-2.0); EOSINOPHILS # 0.2 10^3/ul (0.0-0.5); EOSINOPHILS % 1.7 % (0.0-7.0); HEMATOCRIT 33.9 % (37.0-47.0); LYMPHOCYTES # 2.5 10^3/ul (0.8-2.9); LYMPHOCYTES % 28.2 % (15.0-51.0); MEAN CORPUSCULAR HEMOGLOBIN 22.4 pg (29.0-33.0); MEAN CORPUSCULAR HGB CONC 29.5 g/dl (32.0-37.0); MEAN PLATELET VOLUME 10.2 fl (7.4-10.4); MONOCYTE # 0.6 10^3/ul (0.3-0.9); MONOCYTES % 6.3 % (0.0-11.0); PLATELET COUNT 219 10^3/UL (140-415); RED BLOOD COUNT 4.46 10^6/ul (4.20-5.40); RED CELL DISTRIBUTION WIDTH 20.8 % (11.5-14.5); WHITE BLOOD COUNT 8.9 10^3/ul (4.8-10.8)
[2017-02-22 17:44] LABS: ALBUMIN/GLOBULIN RATIO 1.02; CALCIUM 9.3 mg/dl (8.4-10.2); CREATININE 1.34 mg/dl (0.44-1.00); POTASSIUM 4.5 mmol/L (3.5-5.1); TOTAL PROTEIN 7.9 g/dl (6.1-8.1)
[2017-02-22] MEDS ORDERED: IODIXANOL LOCM 100 ML BTL ONE (18:04)
--- NOTE | 2017-02-22 18:35 | RADRPT ---
PROCEDURE: CT Abdomen and Pelvis with intravenous contrast. CLINICAL INDICATION: Left pelvic pain. Status post hysterectomy in December... TECHNIQUE: CT scan of the abdomen and pelvis with intravenous contrast was performed on the multi- slice CT scanner. The patient was scanned following the uncomplicated intravenous administration of 90 cc of Visipaque 320 contrast. Coronal and sagittal reformatted images were obtained from the ax ial source images. Images were reviewed on a high-resolution PACS workstation. Total DLP = 1369 mGy-cm. CTDIvol = 23.6 mGy. One or more of the following dose reduction techniques were used: Automated exposure control. Adjustment of the mA and/or kV according to patient size. Use of iterative reconstruction technique. COMPARISON: 01/22/2017 FINDINGS: CT abdomen and pelvis: The lung bases are clear. The heart size is normal in size. The liver is normal in size and demons trates a low-density lesions in the right lobe measuring up to 1.4 cm stable since prior exam. Ther e is no other focal mass or intrahepatic biliary dilatation. The spleen is normal in size and homog eneous in density. The pancreas as visualized is normal. The gallbladder has been removed. The a drenal glands are normal. The kidneys are symmetrically unremarkable. No urolithiasis, obstructive uropathy, or solid mass lesion is seen. The stomach is partially collapsed, but is grossly unremarkable. The small bowels are unremarkable. The colon and rectum are normal. The appendix is normal.. No evidence of acute appendicitis or diver ticulitis. The uterus has been removed.. The bladder is normal. There is no abdominal or pelvic iftikhar nopathy, free fluid, free air, mass or mesenteric inflammation. There is resolution of previous smal l free fluid in the pelvis. The aorta is normal in caliber and course. The osseous structures are intact. No osteolytic or osteo blastic lesions are identified. Postsurgical changes are seen in the anterior pelvic wall.. IMPRESSION: 1. Status post hysterectomy with postsurgical changes at the anterior pelvic wall. 2. Resolution of previous small pelvic free fluid. 3. Status post cholecystectomy. 4. Small stable low-density lesions in the liver measuring up to 1.4 cm. These may represent cysts . Abdominal ultrasound could be obtained to further evaluate. RPTAT: GG .Tevin Manuel MD, MD Date Time Electronically viewed and signed by .Tevin Manuel MD, MD on 02/22/2017 18:35 .L/
[2017-02-22 18:54] LABS: URINE BLOOD (Dip) POC Negative (NEGATIVE)
[2017-02-22] MEDS ORDERED: morphine 2 MG INJ IV ONE (19:00)
[2017-02-22] MEDS ORDERED: HYDR-906 PO (19:09)
[2017-02-22 19:25] VITALS: BP 128/62; PULSE 65; RESP 18; TEMP 98.3
--- NOTE | 2017-02-22 21:39 | ERD ---
ER Documentation Chief Complaint Date/Time DATE: 02/22/17 TIME: 21:32 Chief Complaint Complains of leower abdominal post-op pain x 1 week HPI 46 yr old female complaining of abdominal pain x 3 weeks. Patient has history of hysterectomy and oophorectomy on January 14. Patient has had history of large fibroids leading to her hysterectomy. She is needed transfusions in the past. Patient states that she has had diffuse lower abdominal pain for the last week. Denies chest pain or shortness of breath. [place] nauseous earlier. Took [place] this morning with mild alleviation. ROS All systems reviewed and are negative except as per history of present illness. Medications Home Meds Active Scripts Hydrocodone/Acetaminophen ([place] 5-325 Tablet) 1 Each Tablet, 1 TAB PO Q6H Y for PAIN, #7 TAB Prov:UZIEL GUARDADO PA-C 02/22/17 Ketoconazole* (Ketoconazole*) 2% - 120 Ml Shampoo, 1 APPLIC TOP DAILY for 14 Days, #1 TUB WASH HAIR/SCALP AND RINSE OFF Prov:JERARDO GOMEZ MD 02/06/17 Ondansetron (Ondansetron Odt) 4 Mg Tab.rapdis, 4 MG PO Q6H Y for NAUSEA AND/OR VOMITING, #30 TAB Prov:LYDIA WATERS MD 01/22/17 Hydrocodone/Acetaminophen ([place] 10-325 Tablet) 1 Each Tablet, 1 TAB PO Q6H Y for PAIN, #7 TAB Prov:LYDIA WATERS MD 01/22/17 Pantoprazole* (Protonix*) 40 Mg Tablet.dr, 40 MG PO BID for 42 Days, #90 TAB Prov:TASHA COTA NP 01/17/17 Docusate Sodium* (Colace*) 100 Mg Capsule, 100 MG PO Q12H Y for CONSTIPATION for 30 Days, #60 CAP Prov:LETICIA QUAN MD 05/16/16 Reported Medications Spironolactone* (Aldactone*) 50 Mg Tablet, 150 MG PO TID, #180 TAB 02/06/17 Ferrous Sulfate* (Ferrous Sulfate*) 325 Mg Tabec, 325 MG PO TID, TAB 05/14/16 Gemfibrozil* (Lopid*) 600 Mg Tablet, 600 MG PO BID, TAB 05/14/16 Carisoprodol* (Carisoprodol*) 350 Mg Tablet, 350 MG PO BID, TAB 05/14/16 Lorazepam* (Ativan*) 2 Mg Tablet, 2 MG PO TID Y for ANXIETY, #60 TAB 05/14/16 Atenolol* (Atenolol*) 50 Mg Tablet, 50 MG PO DAILY, #30 TAB 05/14/16 Allergies Allergies: Coded Allergies: No Known Allergy (Unverified , 02/06/17) PMhx/Soc History of Surgery: Yes (4 c/s, lap raven, Partial hysterectomy) Anesthesia Reaction: No Hx Neurological Disorder: No Hx Respiratory Disorders: No Hx Cardiac Disorders: No Hx Psychiatric Problems: Yes (mood swings, bipolar disorder, anxiety, depression, PTSD) Hx Miscellaneous Medical Probl: Yes (CHOLECYSTECTOMY, BIPOLAR DISORDER) Hx Alcohol Use: No Hx Substance Use: No (tried edible (with weed) 01/07/17 to relieve pain but did not work) Hx Tobacco Use: No Physical Exam Vitals Vital Signs Date Time Temp Pulse Resp B/P Pulse Ox O2 Delivery O2 Flow Rate FiO2 02/22/17 19:25 98.3 65 18 128/62 98 Room Air 02/22/17 14:57 98.3 89 20 131/64 98 Physical Exam GENERAL: The patient is well-appearing, well-nourished, in no acute distress CHEST: Clear to auscultation bilaterally. There are no rales, wheezes or rhonchi. HEART: Regular rate and rhythm. No murmurs, clicks, rubs or gallops. No S3 or S4. ABDOMEN:Soft, nontender and nondistended. Good bowel sounds. No rebound or guarding. No gross peritonitis. No gross organomegaly or masses. No Acevedo sign or McBurney point tenderness. BACK: No midline or flank tenderness. SKIN: There is no apparent rash or petechiae. The skin is warm and dry. Surgical scars over the abdomen seen. Result Diagram: 02/22/17 1710 02/22/17 1710 Results 24 hrs Laboratory Tests Test 02/22/17 17:10 02/22/17 19:00 White Blood Count 8.910^3/ul Red Blood Count 4.4610^6/ul Hemoglobin 10.0g/dl Hematocrit 33.9% Mean Corpuscular Volume 76.0fl Mean Corpuscular Hemoglobin 22.4pg Mean Corpuscular Hemoglobin Concent 29.5g/dl Red Cell Distribution Width 20.8% Platelet Count 67136^3/UL Mean Platelet Volume 10.2fl Neutrophils % 63.0% Lymphocytes % 28.2% Monocytes % 6.3% Eosinophils % 1.7% Basophils % 0.2% Nucleated Red Blood Cells % 0.0/100WBC Neutrophils # (Manual) 5.610^3/ul Lymphocytes # 2.510^3/ul Monocytes # 0.610^3/ul Eosinophils # 0.210^3/ul Basophils # 0.010^3/ul Nucleated Red Blood Cells # 0.010^3/ul Sodium Level 141mmol/L Potassium Level 4.5mmol/L Chloride Level 104mmol/L Carbon Dioxide Level 28mmol/L Anion Gap 14 Blood Urea Nitrogen 13mg/dl Creatinine 1.34mg/dl Glucose Level 91mg/dl Calcium Level 9.3mg/dl Total Bilirubin 0.0mg/dl Direct Bilirubin 0.00mg/dl Indirect Bilirubin 0.0mg/dl Aspartate Amino Transf (AST/SGOT) 16IU/L Alanine Aminotransferase (ALT/SGPT) 26IU/L Alkaline Phosphatase 73IU/L Total Protein 7.9g/dl Albumin 4.0g/dl Globulin 3.90g/dl Albumin/Globulin Ratio 1.02 Lipase 67U/L Serum HCG, Qualitative NEGATIVE Bedside Urine pH (LAB) 6.0 Bedside Urine Protein (LAB) Negative Bedside Urine Glucose (UA) Negative Bedside Urine Ketones (LAB) Negative Bedside Urine Blood Negative Bedside Urine Nitrite (LAB) Negative Bedside Urine Leukocyte Esterase (L Negative Current Medications Medications (Trade) Dose Ordered Sig/Breanne Route PRN Reason Start Time Stop Time Status Last Admin Dose Admin Sodium Chloride (NS) 1,000 ml @ 1,000 mls/hr Q1H STAT IV 02/22/17 16:51 02/22/17 17:50 DC 02/22/17 17:20 Ondansetron HCl (Zofran Inj) 4 mg ONCE STAT IV 02/22/17 16:51 02/22/17 16:52 DC 02/22/17 17:20 Ketorolac Tromethamine (Toradol) 30 mg ONCE STAT IV 02/22/17 16:51 02/22/17 17:15 DC Morphine Sulfate (morphine) 4 mg ONCE STAT IV 02/22/17 17:14 02/22/17 17:16 DC 02/22/17 17:20 IV Flush 10 ml 10 ml STK-MED ONCE .ROUTE 02/22/17 17:15 02/22/17 17:16 DC 02/22/17 18:10 Sodium Chloride (NS) 100 ml @ ud STK-MED ONCE .ROUTE 02/22/17 17:15 02/22/17 17:16 DC 02/22/17 18:10 Iohexol (Omnipaque 300mg/ ml) 150 ml STK-MED ONCE .ROUTE 02/22/17 17:15 02/22/17 17:16 DC Iodixanol (Visipaque Locm) 100 ml STK-MED ONCE .ROUTE 02/22/17 18:04 02/22/17 18:05 DC 02/22/17 18:18 Morphine Sulfate (morphine) 2 mg ONCE ONCE IV 02/22/17 19:00 02/22/17 19:01 DC 02/22/17 18:39 Ketorolac Tromethamine (Toradol) 30 mg ONCE STAT IV 02/22/17 19:14 02/22/17 19:15 DC 02/22/17 19:18 Procedures/MDM DIAGNOSTIC IMAGING REPORT Patient: [place] LIVE : 1970 Age: 46 Sex: F MR #: [id number] DOS: 02/22/17 1651 Ordering MD: SHERRY GUARDADO PA-C Location: [facility] Room/Bed: PROCEDURE: CT Abdomen and Pelvis with intravenous contrast. CLINICAL INDICATION: Left pelvic pain. Status post hysterectomy in December... TECHNIQUE: CT scan of the abdomen and pelvis with intravenous contrast was performed on the multi-slice CT scanner. The patient was scanned following the uncomplicated intravenous administration of 90 cc of Visipaque 320 contrast. Coronal and sagittal reformatted images were obtained from the axial source images. Images were reviewed on a high-resolution PACS workstation. Total DLP = 1369 mGy-cm. CTDIvol = 23.6 mGy. One or more of the following dose reduction techniques were used: Automated exposure control. Adjustment of the mA and/or kV according to patient size. Use of iterative reconstruction technique. COMPARISON: 01/22/2017 FINDINGS: CT abdomen and pelvis: The lung bases are clear. The heart size is normal in size. The liver is normal in size and demonstrates a low-density lesions in the right lobe measuring up to 1.4 cm stable since prior exam. There is no other focal mass or intrahepatic biliary dilatation. The spleen is normal in size and homogeneous in density. The pancreas as visualized is normal. The gallbladder has been removed. The adrenal glands are normal. The kidneys are symmetrically unremarkable. No urolithiasis, obstructive uropathy, or solid mass lesion is seen. The stomach is partially collapsed, but is grossly unremarkable. The small bowels are unremarkable. The colon and rectum are normal. The appendix is normal.. No evidence of acute appendicitis or diverticulitis. The uterus has been removed.. The bladder is normal. There is no abdominal or pelvic adenopathy , free fluid, free air, mass or mesenteric inflammation. There is resolution of previous small free fluid in the pelvis. The aorta is normal in caliber and course. The osseous structures are intact. No osteolytic or osteoblastic lesions are identified. Postsurgical changes are seen in the anterior pelvic wall.. IMPRESSION: 1. Status post hysterectomy with postsurgical changes at the anterior pelvic wall. 2. Resolution of previous small pelvic free fluid. 3. Status post cholecystectomy. 4. Small stable low-density lesions in the liver measuring up to 1.4 cm. These may represent cysts. Abdominal ultrasound could be obtained to further evaluate. ER Course: 6 mg IV morphine given in ED 30 mg IV Toradol given in ED MDM: 46-year-old female complaining of abdominal pain [address] scan does not show signs of deep infection or surgical complication. I have low suspicion for bowel obstruction. I have low suspicion for choledocholithiasis, cholecystitis, cholangitis. I have low suspicion for perforated diverticulitis. I have low suspicion for pelvic emergency. Patient likely has generalized abdominal pain. Patient's CT scan was within normal limits and vital signs are stable. Patient's blood work was within normal limits. Patient will be discharged with pain medication and recommended to follow-up with primary care within 1 to 2 days for close evaluation. Departure Diagnosis: Primary Impression: Postoperative pain Condition: Stable Patient Instructions: Post Op Wound Check, Pain Additional Instructions: FOLLOW UP WITH YOUR PRIMARY CARE PHYSICIAN TOMORROW.Return to this facility if you are not improving as expected. UZIEL GUARDADO PA-C Feb 22, 2017 21:39
== END 2017-02-22 19:32 | disposition home or self-care (01) ==
LOC: FTE 14:49
DX: G89.18 Other acute postprocedural pain (principal); R10.2 Pelvic and perineal pain; R10.84 Generalized abdominal pain
CPT/HCPCS: 36415; 74177; 80053; 81003; 83690; 84703; 85025; 96374; 96375; 96376; J1885; J2270; J2405; J7030; Q9967; Z7502; Z7610

== ENCOUNTER 2017-02-27 17:17 | Emergency (ER) | payer BC ==
[~2017-02-27] VITALS: Ht 162.6 cm; Wt 130.0 kg
[~2017-02-27 17:17] MED LIST changes: +HYDR-906 PO
[2017-02-27 17:30] VITALS: Ht 162.6 cm; Wt 130.0 kg
[2017-02-27] MEDS ORDERED: KETOROLAC 30 MG INJ IM STA (18:43)
--- NOTE | 2017-02-27 18:47 | ERA ---
ER Documentation Chief Complaint Date/Time DATE: 02/27/17 TIME: 18:43 Chief Complaint LOWER PELVIC PAIN S/P OBGYN APPOINTMENT, VAG BLEED STARTED TODAY HPI 46-year-old female with extensive past medical history presenting with a chief complaint of lower pelvic pain 1 day. Patient was at a postsurgical (1 month status post hysterectomy) exam when a pelvic examination was done, cultures were obtained with a cotton swab and patient stated that the swab went for into the vaginal vault and culture pain that is persisting until today. Denies any bleeding. States that there is clear tissue that has been draining from the vagina. Worse when she is being. Denies dysuria, hematuria, vaginal discharge , foul odor, pruritus. Patient has no other complaints and describes no other associated manifestations. Nursing notes have been reviewed and are consistent with history given. ROS All systems reviewed and are negative except as per history of present illness. Medications Home Meds Active Scripts Hydrocodone/Acetaminophen ([place] 5-325 Tablet) 1 Each Tablet, 1 TAB PO Q6H Y for PAIN, #7 TAB Prov:UZIEL GUARDADO PA-C 02/22/17 Ketoconazole* (Ketoconazole*) 2% - 120 Ml Shampoo, 1 APPLIC TOP DAILY for 14 Days, #1 TUB WASH HAIR/SCALP AND RINSE OFF Prov:JERARDO GOMEZ MD 02/06/17 Ondansetron (Ondansetron Odt) 4 Mg Tab.rapdis, 4 MG PO Q6H Y for NAUSEA AND/OR VOMITING, #30 TAB Prov:LYDIA WATERS MD 01/22/17 Hydrocodone/Acetaminophen ([place] 10-325 Tablet) 1 Each Tablet, 1 TAB PO Q6H Y for PAIN, #7 TAB Prov:LYDIA WATERS MD 01/22/17 Pantoprazole* (Protonix*) 40 Mg Tablet.dr, 40 MG PO BID for 42 Days, #90 TAB Prov:TASHA COTA NP 01/17/17 Docusate Sodium* (Colace*) 100 Mg Capsule, 100 MG PO Q12H Y for CONSTIPATION for 30 Days, #60 CAP Prov:LETICIA QUAN MD 05/16/16 Reported Medications Spironolactone* (Aldactone*) 50 Mg Tablet, 150 MG PO TID, #180 TAB 02/06/17 Ferrous Sulfate* (Ferrous Sulfate*) 325 Mg Tabec, 325 MG PO TID, TAB 05/14/16 Gemfibrozil* (Lopid*) 600 Mg Tablet, 600 MG PO BID, TAB 05/14/16 Carisoprodol* (Carisoprodol*) 350 Mg Tablet, 350 MG PO BID, TAB 05/14/16 Lorazepam* (Ativan*) 2 Mg Tablet, 2 MG PO TID Y for ANXIETY, #60 TAB 05/14/16 Atenolol* (Atenolol*) 50 Mg Tablet, 50 MG PO DAILY, #30 TAB 05/14/16 Allergies Allergies: Coded Allergies: No Known Allergy (Unverified , 02/06/17) PMhx/Soc History of Surgery: Yes (4 c/s, lap raven, Partial hysterectomy) Anesthesia Reaction: No Hx Neurological Disorder: No Hx Respiratory Disorders: No Hx Cardiac Disorders: No Hx Psychiatric Problems: Yes (mood swings, bipolar disorder, anxiety, depression, PTSD) Hx Miscellaneous Medical Probl: Yes (CHOLECYSTECTOMY, BIPOLAR DISORDER) Hx Alcohol Use: No Hx Substance Use: No (tried edible (with weed) 01/07/17 to relieve pain but did not work) Hx Tobacco Use: No Physical Exam Vitals Vital Signs Date Time Temp Pulse Resp B/P Pulse Ox O2 Delivery O2 Flow Rate FiO2 02/27/17 17:30 98.1 77 18 133/78 98 Physical Exam Const: Morbidly obese 46-year-old female in no acute distress sitting on a gurney on initial presentation. Head: Atraumatic Eyes: Normal Conjunctiva ENT: Normal External Ears, Nose and Mouth. Neck: Full range of motion..~ No meningismus. Resp: Clear to auscultation bilaterally Cardio: Regular rate and rhythm, no murmurs Abd: Soft, non tender, non distended. Normal bowel sounds Skin: No petechiae or rashes Back: No midline or flank tenderness Ext: No cyanosis, or edema Neur: Awake and alert Psych: Normal Mood and Affect : Mild suprapubic tenderness Results 24 hrs Laboratory Tests Test 02/27/17 19:49 Urine Color COLORLESS Urine Clarity CLEAR Urine pH 7.0 Urine Specific [place] 1.003 Urine Ketones NEGATIVEmg/dL Urine Nitrite NEGATIVEmg/dL Urine Bilirubin NEGATIVEmg/dL Urine Urobilinogen NEGATIVEmg/dL Urine Leukocyte Esterase NEGATIVELeu/ul Urine Hemoglobin NEGATIVEmg/dL Urine Glucose NEGATIVEmg/dL Urine Total Protein NEGATIVEmg/dl Current Medications Medications (Trade) Dose Ordered Sig/Breanne Route PRN Reason Start Time Stop Time Status Last Admin Dose Admin Acetaminophen/ Hydrocodone Bitart ([place] (5/325)) 1 tab ONCE ONCE PO 02/27/17 19:00 02/27/17 19:00 DC Ketorolac Tromethamine (Toradol) 30 mg ONCE STAT IM 02/27/17 18:43 02/27/17 18:44 DC 02/27/17 19:30 Procedures/MDM -year-old female with a chief complaint of pelvic pain one day status post pelvic exam. Patient was worked up with a CT test last visit which was 3 days ago. All tests including CT scan was unremarkable. Physical exam today is largely unremarkable. Patient has been requesting morphine displaying drug- seeking behaviors. This time of little suspicion for ovarian torsion, PID, other acute abdomen. Urinalysis was obtained and was unremarkable. Low suspicion for pyelo-or the urinary tract infection. Went to go speak with the patient about the results, the patient had eloped after we denied her morphine. Departure Diagnosis: Primary Impression: Drug-seeking behavior Additional Impression: Pelvic pain Condition: Stable Additional Instructions: Patient eloped GEORGE RAMIREZ PA-C Feb 27, 2017 18:47
[2017-02-27] MEDS ORDERED: HYDROCODONE/APAP (5/325) TAB PO ONE (19:00)
[2017-02-27 20:11] LABS: ADD UMIC NO; UR ASCORBIC ACID NEGATIVE (NEGATIVE); UR BILIRUBIN (Dip) NEGATIVE (NEGATIVE); UR BLOOD (Dip) NEGATIVE (NEGATIVE); UR CLARITY CLEAR (CLEAR); UR COLOR COLORLESS (YELLOW); UR GLUCOSE (Dip) NEGATIVE (NEGATIVE); UR KETONES (Dip) NEGATIVE (NEGATIVE); UR LEUKOCYTE ESTERASE (Dip) NEGATIVE Leu/ul (NEGATIVE); UR NITRITE (Dip) NEGATIVE (NEGATIVE); UR SPECIFIC GRAVITY (Dip) 1.003 (1.003-1.030); UR TOTAL PROTEIN (Dip) NEGATIVE (NEGATIVE); UR UROBILINOGEN (Dip) NEGATIVE (NEGATIVE)
== END 2017-02-27 21:09 | disposition left against medical advice (07) ==
LOC: FTE 17:17
DX: R10.2 Pelvic and perineal pain (principal); Z76.5 Malingerer [conscious simulation]
CPT/HCPCS: 81003; 96372; Z7502

== ENCOUNTER 2017-03-07 17:03 | Emergency (ER) | payer BC ==
[~2017-03-07] VITALS: Ht 162.6 cm; Wt 130.5 kg
[2017-03-07 17:28] VITALS: Ht 162.6 cm; Wt 130.5 kg
[2017-03-07] MEDS ORDERED: SOD CHLORIDE 0.9% 500 ML IV STA (19:32)
[2017-03-07] MEDS ORDERED: morphine 4 MG/ML VIAL IV STA ×3 (19:32→23:25)
[2017-03-07] MEDS ORDERED: ONDANSETRON 4 MG INJ IV STA (19:32)
[2017-03-07 20:06] LABS: WHITE BLOOD COUNT 9.1 10^3/ul (4.8-10.8)
[2017-03-07 20:07] LABS: BASOPHILS % 0.3 % (0.0-2.0); EOSINOPHILS # 0.2 10^3/ul (0.0-0.5); EOSINOPHILS % 1.6 % (0.0-7.0); HEMOGLOBIN 10.7 g/dl (12.0-16.0); LYMPHOCYTES # 2.7 10^3/ul (0.8-2.9); LYMPHOCYTES % 29.3 % (15.0-51.0); MEAN CORPUSCULAR HEMOGLOBIN 23.5 pg (29.0-33.0); MEAN CORPUSCULAR HGB CONC 29.7 g/dl (32.0-37.0); MEAN CORPUSCULAR VOLUME 78.9 fl (82.0-101.0); MEAN PLATELET VOLUME 10.2 fl (7.4-10.4); MONOCYTE # 0.5 10^3/ul (0.3-0.9); MONOCYTES % 5.8 % (0.0-11.0); NEUTROPHIL # 5.7 10^3/ul (1.6-7.5); NEUTROPHILS % 62.6 % (39.0-77.0); PLATELET COUNT 276 10^3/UL (140-415); RED BLOOD COUNT 4.56 10^6/ul (4.20-5.40); RED CELL DISTRIBUTION WIDTH 19.4 % (11.5-14.5)
[2017-03-07 20:19] LABS: INR 0.93; PROTIME 12.5 Sec (12.2-14.2)
[2017-03-07 20:20] LABS: PARTIAL THROMBOPLASTIN TIME 28.8 Sec (25.0-35.0)
[2017-03-07 20:21] LABS: ADD UMIC NO; UR ASCORBIC ACID NEGATIVE (NEGATIVE); UR BILIRUBIN (Dip) NEGATIVE (NEGATIVE); UR BLOOD (Dip) NEGATIVE (NEGATIVE); UR CLARITY CLEAR (CLEAR); UR COLOR YELLOW (YELLOW); UR GLUCOSE (Dip) NEGATIVE (NEGATIVE); UR KETONES (Dip) NEGATIVE (NEGATIVE); UR LEUKOCYTE ESTERASE (Dip) NEGATIVE Leu/ul (NEGATIVE); UR NITRITE (Dip) NEGATIVE (NEGATIVE); UR SPECIFIC GRAVITY (Dip) 1.017 (1.003-1.030); UR TOTAL PROTEIN (Dip) NEGATIVE (NEGATIVE); UR UROBILINOGEN (Dip) NEGATIVE (NEGATIVE)
[2017-03-07] MEDS ORDERED: HYDROmorphONE 1 MG/ML SYG IV STA (20:29)
[2017-03-07 20:47] LABS: ALBUMIN 4.2 g/dl (3.3-4.9); ALBUMIN/GLOBULIN RATIO 1.02; CALCIUM 9.1 mg/dl (8.4-10.2); CREATININE 0.85 mg/dl (0.44-1.00); POTASSIUM 3.6 mmol/L (3.5-5.1); TOTAL PROTEIN 8.3 g/dl (6.1-8.1)
--- NOTE | 2017-03-07 21:10 | RADRPT ---
PROCEDURE: US Pelvis Transabdominal and Transvaginal. CLINICAL INDICATION: Pelvic pain. TECHNIQUE: Multiple sonographic images of the pelvis were obtained utilizing kaiser scale, Doppler a nd color flow imaging with transabdominal and endovaginal technique. The images were reviewed on a PACS workstation. COMPARISON: January 08, 2017 FINDINGS: The uterus has been removed. The remaining cervix is grossly unremarkable. The right ovary has been removed . The left ovary is not well visualized. . A small amount of free fluid is identified in the right adnexa. IMPRESSION: Status post hysterectomy and right oophorectomy. Unremarkable remaining cervix. Small amount of nonspecific free fluid in the right adnexa. Etiology is uncertain. If further charac terization is needed CT or MRI could be helpful. Left ovary not well visualized. If characterization of this structure is needed repeat exam or MRI i s recommended. RPTAT: AA .Negrito Mcguire MD, MD Date Time Electronically viewed and signed by .Negrito Mcguire MD, on 03/07/2017 21:10 .P/
[2017-03-07] MEDS ORDERED: IOHEXOL 300MG/ML 150 ML BTL ONE (21:24)
[2017-03-07] MEDS ORDERED: SOD CHLORIDE 0.9% 100 ML ONE (21:24)
[2017-03-07] MEDS ORDERED: METOCLOPRAMIDE 10 MG INJ IV ONE (22:30)
--- NOTE | 2017-03-07 22:53 | RADRPT ---
PROCEDURE: CT ABDOMEN/PELVIS WITH CONTRAST CLINICAL INDICATION: 46-year-old female with left-sided abdominal/pelvic pain. TECHNIQUE: The study was performed utilizing a [employer] VCT 64-slice CT scanner. Direct axia l sections were obtained through the abdomen and pelvis with the use of 100 cc of Omnipaque-300 rodrigo onic intravenous contrast material. Sagittal and coronal reformations were obtained. One or more of the following dose reduction techniques were utilized: automated exposure control, adjustment of the mA and/or kV according to patient's size or use of iterative reconstruction technique. The images were reviewed on a PACS workstation. CTD/vol = 23.6 mGy; Total Exam DLP = 1251.6 mGy-cm. COMPARISON: CT abdomen/pelvis February 22, 2017. FINDINGS: The lung bases are unremarkable. There is no evidence for significant pleural effusion. The liver has a normal size and contour. There is an ovoid hypodense focus within the right lobe of the liver on axial image 3-31 measuring approximately 13 x 13 x 13 mm without significant interval change. The re is an ovoid hypodense focus within the posterior segment of the right lobe of the liver on axial image 3-46 measuring approximately 14 x 15 x 14 mm without significant interval change. There is mi nimal left intrahepatic biliary ductal dilatation. Surgical clips are present within the gallbladder fossa consistent with prior cholecystectomy. The pancreas is without areas of abnormal attenuation or contrast enhancement. This spleen is identified and has a normal size without abnormal density o r contrast enhancement. The adrenal glands are unremarkable. The kidneys are functional bilaterally without abnormal density. No hydroureteronephrosis nor nephroureterolithiasis is evident. The urinary bladder contains urine. There is no evidence for bowel obstruction. There are a few small d iverticula within the sigmoid colon without surrounding inflammatory changes. The appendix is visual ized and is without edema or surrounding inflammatory reaction. There is an infraumbilical midline a bdominal wall incision again identified with postoperative changes without significant fluid collect ion. There is no significant free pelvic fluid. The aortoiliac vessels are without aneurysmal dilat ation. The osseous structures are intact. IMPRESSION: 1. Status post cholecystectomy with minimal left-sided intrahepatic biliary ductal dilatation. 2. There are a couple of ovoid hypodense foci within the right lobe of the liver which are not nely rly cystic but without significant interval change. A followup study with CT or MRI imaging in 6 mon ths is suggested. 3. Minimal sigmoid diverticulosis. 4. No CT evidence for appendicitis. 5. Postsurgical changes within the lower abdominal wall without significant change. .Buck Silverman MD, MD Date Time Electronically viewed and signed by .Buck Silverman MD, MD on 03/07/2017 22:53 .Cristobal/
[2017-03-07 23:00] VITALS: BP 140/88; PULSE 70; RESP 20; TEMP 98.4
[2017-03-07] MEDS ORDERED: OXYC-279 PO (23:27)
--- NOTE | 2017-03-07 23:27 | ERD ---
ER Documentation Chief Complaint Date/Time DATE: 03/07/17 Chief Complaint Left lower abdominal pain HPI The patient is a 46-year-old female who presents to the Emergency Department with complaint of lower abdominal pain for the past month. The patient reports that on January 14, 2017 she had a hysterectomy and right oophorectomy secondary to a history of large fibroids. For the past month, she has been experiencing intermittent diffuse lower abdominal discomfort, and for the past 2 days it has been mostly localized to the left side. She has been taking [place] 5/325 regularly, with minimal relief. She notes that she has not yet discussed her current pain with her OB.HOG MAN, Dr. Barnett, but plans to. Due to this pain, she presented to the ED on 02/22/2017, at which time laboratory testing and CT imaging was performed with no significant acute findings identified. Patient's pain was controlled, and ultimately, she was discharged home and advised to follow up with her FIRE HAZARD INSPECTOR. The patient notes that she has not yet followed up with her FIRE HAZARD INSPECTOR. She denies any radiation of pain. Denies dysuria, hematuria, flank pain. Denies fevers, sweats, chills, nausea, vomiting, diarrhea, black/ bloody stools, vaginal bleeding or new vaginal discharge. Denies chest pain, palpitations, shortness of breath or lower extremity swelling. ROS All systems reviewed and are negative except as per history of present illness. Medications Home Meds Active Scripts Oxycodone HCl/Acetaminophen (Percocet 5-325 mg Tablet) 1 Each Tablet, 1 EACH PO Q6, #12 TAB Prov:KEVIN ROMERO PA-C 03/07/17 Hydrocodone/Acetaminophen ([place]wood 5-325 Tablet) 1 Each Tablet, 1 TAB PO Q6H Y for PAIN, #7 TAB Prov:UZIEL GUARDADO PA-C 02/22/17 Ketoconazole* (Ketoconazole*) 2% - 120 Ml Shampoo, 1 APPLIC TOP DAILY for 14 Days, #1 TUB WASH HAIR/SCALP AND RINSE OFF Prov:JERARDO GOMEZ MD 02/06/17 Ondansetron (Ondansetron Odt) 4 Mg Tab.rapdis, 4 MG PO Q6H Y for NAUSEA AND/OR VOMITING, #30 TAB Prov:LYDIA WATERS MD 01/22/17 Hydrocodone/Acetaminophen ([place]wood 10-325 Tablet) 1 Each Tablet, 1 TAB PO Q6H Y for PAIN, #7 TAB Prov:LYDIA WATERS MD 01/22/17 Pantoprazole* (Protonix*) 40 Mg Tablet.dr, 40 MG PO BID for 42 Days, #90 TAB Prov:TASHA COTA NP 01/17/17 Docusate Sodium* (Colace*) 100 Mg Capsule, 100 MG PO Q12H Y for CONSTIPATION for 30 Days, #60 CAP Prov:LETICIA QUAN MD 05/16/16 Reported Medications Spironolactone* (Aldactone*) 50 Mg Tablet, 150 MG PO TID, #180 TAB 02/06/17 Ferrous Sulfate* (Ferrous Sulfate*) 325 Mg Tabec, 325 MG PO TID, TAB 05/14/16 Gemfibrozil* (Lopid*) 600 Mg Tablet, 600 MG PO BID, TAB 05/14/16 Carisoprodol* (Carisoprodol*) 350 Mg Tablet, 350 MG PO BID, TAB 05/14/16 Lorazepam* (Ativan*) 2 Mg Tablet, 2 MG PO TID Y for ANXIETY, #60 TAB 05/14/16 Atenolol* (Atenolol*) 50 Mg Tablet, 50 MG PO DAILY, #30 TAB 05/14/16 Allergies Allergies: Coded Allergies: No Known Allergy (Unverified , 02/06/17) PMhx/Soc History of Surgery: Yes (;Cholecystectomy;Hysterectomy) Anesthesia Reaction: No Hx Neurological Disorder: No Hx Respiratory Disorders: No Hx Cardiac Disorders: No Hx Psychiatric Problems: No Hx Miscellaneous Medical Probl: Yes (Uterine Fibroids) Hx Alcohol Use: No Hx Substance Use: No Hx Tobacco Use: No Smoking Status: Never smoker Physical Exam Vitals Vital Signs Date Time Temp Pulse Resp B/P Pulse Ox O2 Delivery O2 Flow Rate FiO2 03/07/17 23:00 98.4 70 20 140/88 100 Room Air 03/07/17 17:28 98.4 104 19 152/103 97 Physical Exam GENERAL: Well-developed, well-nourished, in no acute distress HEENT: Head is normocephalic, atraumatic. No scleral pallor or icterus. Pupils equal, round and reactive to light. Conjunctiva pink. Moist mucous membranes. NECK: Supple. RESPIRATORY: Lungs are clear to auscultation bilaterally. Equal breath sounds. Normal expiratory effort. CARDIOVASCULAR: Regular rate and rhythm. S1 and S2 normal. GASTROINTESTINAL: Abdomen is soft, nontender, and nondistended. No guarding, no rebound tenderness. Normal bowel sounds.No gross peritonitis. Negative Acevedo's sign. No tenderness at McBurney's point. Several surgical scars noted. FLANK: No CVA tenderness, no mass or swelling. BACK: No midline tenderness. EXTREMITIES: No clubbing, cyanosis, or edema. Normal skin perfusion. Moving all extremities. Muscle tone is normal. No focal swelling or erythema. Distal pulses are palpable, 2+ bilaterally. Capillary refill is less than 2 seconds. NEUROLOGIC: The patient is alert, awake, and oriented x 3. INTEGUMENT: Skin is clean, dry and intact. No rashes, lesions or petechiae present. PSYCHIATRIC: Appropriate; Cooperative. Result Diagram: 03/07/17194403/07/171944 Results 24 hrs Laboratory Tests Test 03/07/17 19:45 White Blood Count 9.110^3/ul Red Blood Count 4.5610^6/ul Hemoglobin 10.7g/dl Hematocrit 36.0% Mean Corpuscular Volume 78.9fl Mean Corpuscular Hemoglobin 23.5pg Mean Corpuscular Hemoglobin Concent 29.7g/dl Red Cell Distribution Width 19.4% Platelet Count 86063^3/UL Mean Platelet Volume 10.2fl Neutrophils % 62.6% Lymphocytes % 29.3% Monocytes % 5.8% Eosinophils % 1.6% Basophils % 0.3% Nucleated Red Blood Cells % 0.0/100WBC Neutrophils # 5.710^3/ul Lymphocytes # 2.710^3/ul Monocytes # 0.510^3/ul Eosinophils # 0.210^3/ul Basophils # 0.010^3/ul Nucleated Red Blood Cells # 0.010^3/ul Prothrombin Time 12.5Sec Prothrombin Time Ratio 1.0 INR International Normalized Ratio 0.93 Activated Partial Thromboplast Time 28.8Sec Urine Color YELLOW Urine Clarity CLEAR Urine pH 6.0 Urine Specific [place] 1.017 Urine Ketones NEGATIVEmg/dL Urine Nitrite NEGATIVEmg/dL Urine Bilirubin NEGATIVEmg/dL Urine Urobilinogen NEGATIVEmg/dL Urine Leukocyte Esterase NEGATIVELeu/ul Urine Hemoglobin NEGATIVEmg/dL Urine Glucose NEGATIVEmg/dL Urine Total Protein NEGATIVEmg/dl Sodium Level 140mmol/L Potassium Level 3.6mmol/L Chloride Level 104mmol/L Carbon Dioxide Level 27mmol/L Anion Gap 13 Blood Urea Nitrogen 13mg/dl Creatinine 0.85mg/dl Glucose Level 109mg/dl Calcium Level 9.1mg/dl Total Bilirubin 0.0mg/dl Direct Bilirubin 0.00mg/dl Indirect Bilirubin 0.0mg/dl Aspartate Amino Transf (AST/SGOT) 19IU/L Alanine Aminotransferase (ALT/SGPT) 31IU/L Alkaline Phosphatase 68IU/L Total Protein 8.3g/dl Albumin 4.2g/dl Globulin 4.10g/dl Albumin/Globulin Ratio 1.02 Lipase 82U/L Serum HCG, Qualitative NEGATIVE Current Medications Medications (Trade) Dose Ordered Sig/Breanne Route PRN Reason Start Time Stop Time Status Last Admin Dose Admin Sodium Chloride (NS) 500 ml @ 500 mls/hr Q1H STAT IV 03/07/17 19:32 03/07/17 20:31 DC 03/07/17 19:45 Morphine Sulfate (morphine) 4 mg ONCE STAT IV 03/07/17 19:32 03/07/17 19:34 DC 03/07/17 19:44 Ondansetron HCl (Zofran Inj) 4 mg ONCE STAT IV 03/07/17 19:32 03/07/17 19:34 DC 03/07/17 19:43 Hydromorphone HCl (Dilaudid) 0.5 mg ONCE STAT IV 03/07/17 20:29 03/07/17 20:30 DC 03/07/17 20:37 IV Flush 10 ml 10 ml STK-MED ONCE .ROUTE 03/07/17 21:24 03/07/17 21:25 DC 03/07/17 22:04 Sodium Chloride (NS) 100 ml @ ud STK-MED ONCE .ROUTE 03/07/17 21:24 03/07/17 21:25 DC 03/07/17 22:04 Iohexol (Omnipaque 300mg/ ml) 150 ml STK-MED ONCE .ROUTE 03/07/17 21:24 03/07/17 21:25 DC 03/07/17 22:04 Morphine Sulfate (morphine) 4 mg ONCE STAT IV 03/07/17 21:40 03/07/17 21:41 DC 03/07/17 21:44 Metoclopramide HCl (Reglan) 10 mg ONCE ONCE IV 03/07/17 22:30 03/07/17 22:31 DC 03/07/17 22:37 Morphine Sulfate (morphine) 4 mg ONCE STAT IV 03/07/17 23:25 03/07/17 23:26 DC 03/07/17 23:35 Procedures/MDM EMERGENCY DEPARTMENT COURSE: The patient was stable throughout the ED course. 19:32 IV access established by nursing staff. Laboratory tests and ultrasound imaging to be performed. Morphine and Zofran ordered. 20:29 Patient reports that her pain is not adequately controlled, requesting further medication for pain relief. Dilaudid ordered. Still waiting for US imaging results. 21:15 Discussed patient case with Dr. Barnett, who recommends further pain control be provided in the ED, and CT abdomen and pelvis. Discussed that patient 's left ovary was not visualized on ultrasound imaging. 21:40 Patient requesting further pain control. Per Dr. Barnett recommendation, additional Morphine ordered. Repeat abdominal examination unchanged from prior. 22:30 Patient stating that she is starting to feel mildly nauseous, and Zofran did not work that well. Reglan ordered. 23:25 Patient notes that her pain was improving, but now starting to return. Requesting one more dose of Morphine prior to discharge home. Discussed with patient at length concern regarding administration of large doses of opioids, including respiratory depression. Patient notes that she has a high tolerance and requires large amounts. She understands risks. A family member will be driving her home. Patient given one more dose of pain medications. She is advised to follow up with Dr. Barnett within 1-2 days for reevaluation and further management. All results from today's visit provided to patient. If Dr. Barnett is unable to determine the cause of the patient's pain, or adequately control it, advised pain management follow up. Patient otherwise continues to be stable, with stable vital signs, no hypotension, normal O2 saturation on room air. No evidence of respiratory or MARKETING PRODUCTION COORDINATOR depression. The patient's case was discussed with Dr. Sanchez, ED supervising physician, who agrees with the plan of care including laboratory analysis, treatment and advancing imaging as appropriate. He recommends consultation of patient's FIRE HAZARD INSPECTOR , and then discharge home. CONSULTATION: 21:15 Dr. Barnett, patient's FIRE HAZARD INSPECTOR, who recommends repeat CT imaging with IV contrast for further evaluation, as US imaging was unable to visualize left ovary. If no acute findings are identified, the patient may be discharged home to follow up with him. DIAGNOSTIC TESTS AND INTERPRETATION: PROCEDURE: US Pelvis Transabdominal and Transvaginal. CLINICAL INDICATION: Pelvic pain. TECHNIQUE: Multiple sonographic images of the pelvis were obtained utilizing kaiser scale, Doppler and color flow imaging with transabdominal and endovaginal technique. The images were reviewed on a PACS workstation. COMPARISON: January 08, 2017 FINDINGS: The uterus has been removed. The remaining cervix is grossly unremarkable. The right ovary has been removed . The left ovary is not well visualized. . A small amount of free fluid is identified in the right adnexa. IMPRESSION: Status post hysterectomy and right oophorectomy. Unremarkable remaining cervix. Small amount of nonspecific free fluid in the right adnexa. Etiology is uncertain. If further characterization is needed CT or MRI could be helpful. Left ovary not well visualized. If characterization of this structure is needed repeat exam or MRI is recommended. .Negrito Mcguire MD, MD Date Time Electronically viewed and signed by .Negrito Mcguire MD, MD on 03/07/2017 21:10 PROCEDURE: CT ABDOMEN/PELVIS WITH CONTRAST CLINICAL INDICATION: 46-year-old female with left-sided abdominal/pelvic pain. TECHNIQUE: The study was performed utilizing a Maintenance Assistant[employer]iquiteria VCT 64-slice CT scanner. Direct axial sections were obtained through the abdomen and pelvis with the use of 100 cc of Omnipaque-300 nonionic intravenous contrast material. Sagittal and coronal reformations were obtained. One or more of the following dose reduction techniques were utilized: automated exposure control, adjustment of the mA and/or kV according to patient's size or use of iterative reconstruction technique. The images were reviewed on a PACS workstation. CTD/ vol = 23.6 mGy; Total Exam DLP = 1251.6 mGy-cm. COMPARISON: CT abdomen/pelvis February 22, 2017. FINDINGS: The lung bases are unremarkable. There is no evidence for significant pleural effusion. The liver has a normal size and contour. There is an ovoid hypodense focus within the right lobe of the liver on axial image 3-31 measuring approximately 13 x 13 x 13 mm without significant interval change. There is an ovoid hypodense focus within the posterior segment of the right lobe of the liver on axial image 3-46 measuring approximately 14 x 15 x 14 mm without significant interval change. There is minimal left intrahepatic biliary ductal dilatation. Surgical clips are present within the gallbladder fossa consistent with prior cholecystectomy. The pancreas is without areas of abnormal attenuation or contrast enhancement. This spleen is identified and has a normal size without abnormal density or contrast enhancement. The adrenal glands are unremarkable. The kidneys are functional bilaterally without abnormal density. No hydroureteronephrosis nor nephroureterolithiasis is evident. The urinary bladder contains urine. There is no evidence for bowel obstruction. There are a few small diverticula within the sigmoid colon without surrounding inflammatory changes. The appendix is visualized and is without edema or surrounding inflammatory reaction. There is an infraumbilical midline abdominal wall incision again identified with postoperative changes without significant fluid collection. There is no significant free pelvic fluid. The aortoiliac vessels are without aneurysmal dilatation. The osseous structures are intact. IMPRESSION: 1. Status post cholecystectomy with minimal left-sided intrahepatic biliary ductal dilatation. 2. There are a couple of ovoid hypodense foci within the right lobe of the liver which are not clearly cystic but without significant interval change. A followup study with CT or MRI imaging in 6 months is suggested. 3. Minimal sigmoid diverticulosis. 4. No CT evidence for appendicitis. 5. Postsurgical changes within the lower abdominal wall without significant change. .Buck Silverman MD, MD Date Time Electronically viewed and signed by .Buck Silverman MD, MD on 03/07/2017 22:53 MEDICAL DECISION MAKING: This is a 46-year-old female presenting to the Emergency Department with complaint of lower abdominal pain that has been occurring intermittently over the past month, with increased discomfort to the left side for the past 2 days. Patient recently underwent hysterectomy and right oophorectomy. She denies any vaginal bleeding or vaginal discharge. She had no significant abnormalities noted on physical examination. Abdomen was soft , nontender and nondistended. She had no guarding, no rebound tenderness, no gross peritonitis. Differential diagnosis includes, but is not limited to, gastroenteritis, gastritis, pancreatitis, perforated viscus, mesenteric ischemia , urinary tract infection, pyelonephritis, IBD, torsion, bowel obstruction, appendicitis, diverticulitis. No significant acute abnormalities were noted on laboratory or imaging modalities ordered. After rest and administration of fluids and medications, the patient reports no new complaints and much decreased pain and symptoms. Upon review and interpretation of the patient's presentation and overall ER course, I believe the patient's symptoms are most consistent with pelvic pain, uncertain etiology. Doubt small bowel obstruction, patient is passing flatus, abdomen is non-distended. Doubt appendicitis, patient has no McBurney's point tenderness, no guarding, non-surgical abdomen, no tenderness over the RLQ. Doubt diverticulitis, exam inconsistent. CT imaging with diverticulosis without diverticulitis. Doubt ischemic bowel, no pain out of proportion to examination, patient appears well, in no acute distress. Doubt torsion, symptoms and examination inconsistent. CT imaging with no evidence of infection , abscess formation, surgical complication. At this time, the patient is in stable condition and therefore will be discharged home with prescription for pain medication and strict return precautions for signs of deteriorating or worsening condition. She is advised to follow up with her FIRE HAZARD INSPECTOR, Dr. Barnett within 1-2 days for reevaluation and further management, or return to the ER sooner for any new or worsening symptoms. I shared my medical decision making, plan, as well as the results with the patient at length and in great detail, and she verbally understands and agrees with the plan for further observation and care as an outpatient. At the time of discharge, all questions were answered. Departure Diagnosis: Primary Impression: Pelvic pain Condition: Stable Patient Instructions: Pelvic Pain, Unknown Cause Referrals: DEMETRA BARNETT MD Additional Instructions: Call your primary care doctor TOMORROW for an appointment during the next 1-2 days.See the doctor sooner or return here if your condition worsens before your appointment time. KEVIN ROMERO PA-C Mar 07, 2017 23:27
== END 2017-03-08 02:24 | disposition home or self-care (01) ==
LOC: FTE 17:03
DX: R10.2 Pelvic and perineal pain (principal)
CPT/HCPCS: 36415; 74177; 76830; 76856; 80053; 81003; 83690; 84703; 85025; 85610; 85730; 96374; 96375; 96376; J1170; J2270; J2405; J2765; J7040; Q9967; Z7502; Z7610

== ENCOUNTER 2017-07-30 18:44 | Emergency (ER) | END 2017-07-31 03:22 | disposition home or self-care (01) ==